=== PATIENT | male | born 1950 | race Caucasian/White ===

== ENCOUNTER 2023-05-23 12:23 | Outpatient (RCR) | payer OTHER, SELFPAY | END 2023-05-23 23:59 | disposition home or self-care (01) | LOC: ROT 12:23 | PROVIDERS: ATTENDING PHYSICIAN Family Medicine | DX: R41.3 Other amnesia (principal); R41.841 Cognitive communication deficit | CPT/HCPCS: 97129; 97130 ==

== ENCOUNTER 2023-06-23 13:46 | Outpatient (RCR) | payer OTHER, SELFPAY | END 2023-06-23 23:59 | disposition home or self-care (01) | LOC: ROT 13:46 | PROVIDERS: ATTENDING PHYSICIAN Family Medicine | DX: R41.3 Other amnesia (principal); R41.841 Cognitive communication deficit | CPT/HCPCS: 97129; 97130 ==

== ENCOUNTER 2023-07-24 16:23 | Outpatient (RCR) | payer OTHER, SELFPAY | END 2023-07-24 23:59 | disposition home or self-care (01) | LOC: ROT 16:23 | PROVIDERS: ATTENDING PHYSICIAN Family Medicine | DX: R41.3 Other amnesia (principal); Z73.6 Limitation of activities due to disability; R41.841 Cognitive communication deficit | CPT/HCPCS: 97129; 97167; 97530; 97535 ==

== ENCOUNTER 2023-08-22 07:41 | Outpatient (RCR) | payer OTHER, SELFPAY | END 2023-08-22 23:59 | disposition home or self-care (01) | LOC: ROT 07:41 | PROVIDERS: ATTENDING PHYSICIAN Family Medicine | DX: R41.3 Other amnesia (principal); Z73.6 Limitation of activities due to disability; R41.841 Cognitive communication deficit | CPT/HCPCS: 97129; 97130; 97530; 97535 ==

== ENCOUNTER → 2023-09-17 14:21 | Outpatient (REF) | payer OTHER, SELFPAY | LOC: DHCBC MAIN 14:21 | PROVIDERS: ATTENDING PHYSICIAN Nurse Practitioner; FAMILY PHYSICIAN Family Medicine | DX: I35.0 Nonrheumatic aortic (valve) stenosis (principal); I25.10 Atherosclerotic heart disease of native coronary artery without angina pectoris | CPT/HCPCS: 93306 ==

== ENCOUNTER → 2023-11-25 13:43 | Outpatient (REF) | payer OTHER, SELFPAY | LOC: RAD 13:43 | PROVIDERS: ATTENDING PHYSICIAN Internal Medicine | DX: R60.0 Localized edema (principal) | CPT/HCPCS: 93971 ==

== ENCOUNTER → 2023-11-26 09:56 | Outpatient (REF) | payer OTHER, SELFPAY | LOC: RAD 09:56 | PROVIDERS: ATTENDING PHYSICIAN Internal Medicine; FAMILY PHYSICIAN Family Medicine | DX: R60.0 Localized edema (principal); M79.89 Other specified soft tissue disorders | CPT/HCPCS: 93971 ==

== ENCOUNTER 2024-01-20 06:09 | Outpatient (RCR) | payer OTHER, SELFPAY | END 2024-01-20 23:59 | disposition home or self-care (01) | LOC: RPT 06:09 | PROVIDERS: ATTENDING PHYSICIAN Internal Medicine; FAMILY PHYSICIAN Family Medicine | DX: I89.0 Lymphedema, not elsewhere classified (principal); I87.2 Venous insufficiency (chronic) (peripheral); Z73.6 Limitation of activities due to disability | CPT/HCPCS: 97163; 97535; 97760 ==

== ENCOUNTER → 2024-02-03 14:26 | Outpatient (REF) | payer OTHER, SELFPAY | LOC: RAD 14:26 | PROVIDERS: ATTENDING PHYSICIAN Family Medicine | DX: Z00.00 Encounter for general adult medical examination without abnormal findings (principal); Z13.6 Encounter for screening for cardiovascular disorders | CPT/HCPCS: 76770 ==

== ENCOUNTER → 2024-04-07 13:19 | Outpatient (REF) | payer OTHER, SELFPAY | LOC: RAD 13:19 | PROVIDERS: ATTENDING PHYSICIAN Family Medicine | DX: M79.604 Pain in right leg (principal); M79.605 Pain in left leg | CPT/HCPCS: 93922; 93925 ==

== ENCOUNTER → 2024-08-30 14:17 | Outpatient (REF) | payer OTHER, SELFPAY | LOC: RCS 14:17 | PROVIDERS: ATTENDING PHYSICIAN Internal Medicine; FAMILY PHYSICIAN Family Medicine | DX: I35.0 Nonrheumatic aortic (valve) stenosis (principal); I25.10 Atherosclerotic heart disease of native coronary artery without angina pectoris | CPT/HCPCS: 93306 ==

== ENCOUNTER 2024-10-11 07:32 | Day surgery (SDC) | payer OTHER, SELFPAY ==
[2024-10-11] VITALS (16 sets, daily range): BP systolic 143–175; BP diastolic 85–118; BMI 33.0
[2024-10-11] MEDS: NSS 317 ML IV (09:07)
--- NOTE | 2024-10-11 11:07 | ITS.CL.CATH ---
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
Cardiac Catheterization
Procedure Report:
CARDIAC CATHETERIZATION REPORT
Date of Procedure: 10/11/2024
Referring: Jeffery Duarte M.D., Ph.D.
Indication: Moderate to severe aortic valve stenosis.
PROCEDURE:
1. Right heart catheterization.
2. Coronary angiography.
3. Bypass angiography
A total of 17 minutes of procedural/moderate sedation was utilized. An independent medical claims manager was present to assist with and help manage the patient's level of consciousness and physiologic status.
ACCESS:
1. 6 Latvian left radial artery using a modified Seldinger technique.
2. 5 Latvian left antecubital vein using a previously placed IV.
CATHETERS:
1. 5 Latvian balloon wedge.
2. 5 Latvian LAVERNE.
3. 5 Latvian JL 4.
4. 5 Latvian JR4.
5. 5 Latvian multipurpose.
HEMODYNAMIC DATA
Weight (kg): 105.2
AO (s/d/x, mmHg): 168/91/124
LV (s/x, mmHg): Not obtained.
PCWP (a/v/x, mmHg): 40/45/35
PA (s/d/x, mmHg): 64/35/44
RV (s/x, mmHg): 64/15
RA (a/v/x, mmHg): 23/22/15
SVC SvO2 (%): 71.9
IVC SvO2 (%): Not obtained.
RA SvO2 (%): Not obtained.
RV SvO2 (%): Not obtained.
PA SvO2 (%): 66.4
SaO2 (%): 96.9
Hbg (g/dL): 12.8
ZHEN
CO (L/min): 5.96
CI (L/min/m2): 2.68
Thermodilution
CO (L/min): Not performed.
CI (L/min/m2): Not performed.
TPG (mmHg): 9
PVR (Thurston Units): 1.51
SVR (dynes*seconds*cm^-5): 1463
AVO2 Diff (Volume %): 5.31
AV gradient (x, mmHg): Not obtained.
AV area (cm2): Not obtained.
MV gradient (x, mmHg): Not obtained.
MV area (cm2): Not obtained.
LEFT VENTRICULOGRAPHY: Not performed.
AORTOGRAPHY: Not performed.
CORONARY ANGIOGRAPHY
Dominance: Right.
Left Main: Normal size, bifurcating vessel. There is a 30 to 40% mid vessel tapering.
LAD: Normal size vessel giving rise to 2 significant diagonals. There is an 80% lesion in the ostium/proximal margin of the LAD. The LAD is supplied by patent HEARD graft.
Ramus: Congenitally absent.
Circumflex: Large size, nondominant vessel giving rise to 1 notable obtuse marginal. The vessel is chronically totally occluded at its origin. A patent stent is observed in the proximal margin of OM1. The entire circumflex distribution is
supplied by patent vein graft.
RCA: Normal size, dominant vessel. The vessel is chronically totally occluded at the distal aspect of its midportion, immediately proximal to the crux. The RPDA is supplied by a patent vein graft.
BYPASS GRAFT ANGIOGRAPHY
HEARD to D2: Normal size graft with end-to-side anastomosis to the large second diagonal. The graft backfills the entire LAD system with competitive flow in the proximal LAD. There is no evidence of stenosis or graft degeneration.
SVG to OM1: Large size graft with end-to-side anastomosis to the first obtuse marginal. There is no evidence of stenosis or graft degeneration.
SVG to RPDA: Normal size graft with end-to-side anastomosis to the RPDA and a relatively horizontal origin requiring a multipurpose catheter for adequate engagement. There is no evidence of stenosis or graft degeneration.
INTERVENTIONS
None.
Closure Device: Vascular band for the left radial artery, manual pressure for the left antecubital vein.
Radiation dose (mGy): 657.97
DAP (cm2.Gy): 52.3890
Fluoroscopy time (minutes): 8.0
CONCLUSIONS:
1. Right dominant circulation with a 30-40% tapering of the mid left main, and 80% lesion in the ostium/proximal margin of the LAD, a chronic total occlusion of the ostium of the left circumflex, a patent stent in the proximal margin of OM1 and a
chronic total occlusion of the distal aspect of the mid RCA, status post prior bypass (patent HEARD to LAD, patent SVG to OM1, patent SVG to RPDA).
2. Severely elevated filling pressures (PCWP = 35 mmHg at 105.2 kg).
3. Moderate, postcapillary pulmonary hypertension (mean PA = 44 mmHg, PCWP = 35 mmHg, cardiac output = 5.96 L/min, PVR = 1.51 Thurston units), WHO group 2.
4. Preserved cardiac index (2.6 L/min/m�).
5. Moderate to severe aortic valve stenosis on echocardiogram.
6. Persistent atrial fibrillation.
RECOMMENDATIONS:
1. Expectant management after cardiac catheterization via left radial and left antecubital approach.
2. Limited weight bearing on the left wrist for one week.
3. TAVR evaluation.
4. Increase furosemide to 40 mg daily, BMP in 1 week to monitor kidney function and potassium levels.
5. Maintain streamlined and simple medication regimen given some transient memory issues.
6. Resume apixaban for PAF.
Copy to: Jeffery Duarte M.D., Ph.D.
Bhavesh Kelley, DO, FACC, FACP
[2024-10-11] MEDS: LASIX 40 MG IV (11:41)
[2024-10-11] MEDS: LOPRESSOR 12.5 MG PO (13:26)
[2024-10-11] MEDS: ZESTRIL 20 MG PO (13:27)
--- NOTE | 2024-10-11 14:11 | CONSULT.STRU ---
Consultation
-
Date/Time Consultation Requested: 10/11/2024 1000
Date/Time Consultation Performed: 10/11/2024 1200
Requesting Provider: Bhavesh Kelley
Performing Provider: DAVION Spence
Reason for Consultation: Aortic stenosis/ TAVR evaluation
Patient History
Physicians
Family Physician: Genoveva Cespedes
Outpatient Manager Balance: Jeffery Duarte
Primary Manager Balance: Jeffery Duarte
History of Present Illness
74 yo male with PMH of CAD s/p SUPRIYA to OM3 12/2014, then CABG 11/[address] Banuelos, persistent A fib (was on eliquis but stopped it and restarting today), chronic HFpEF, moderate/severe , moderate/severe TR, HTN, hyperlipidemia, lymphedema,
obesity. Echo shows is progressing. AV PG/M/26 DAT 1.0, mild AI, dense MAC with mild MR, moderate to severe TR. Underwent cardiac cath today which demonstrated right dominant circulation with a 30-40% tapering of the mid left main, and 80%
lesion in the ostium/proximal margin of the LAD, a chronic total occlusion of the ostium of the left circumflex, a patent stent in the proximal margin of OM1 and a chronic total occlusion of the distal aspect of the mid RCA, status post prior bypass
(patent HEARD to LAD, patent SVG to OM1, patent SVG to RPDA). Severely elevated filling pressures (PCWP = 35 mmHg at 105.2 kg). As far as symptoms, his RAMÍREZ is worsening. He has to take frequent breaks. Experiencing more palpitations with activity and
mild increase in his LE edema. Denies dizziness, syncope, PND or orthopnea.
Reviewed the pathophysiology of aortic stenosis with the patient and his friend. Explained the treatment options of SAVR and TAVR. Explained the TAVR evaluation process including follow up BMP, CT TAVR scan, CT surgery consult and Heart Team
discussion. Provided with script for BMP next week, script and appointment for CT TAVR, Consult appointment with Dr. Banuelos and a copy of the TAVR education booklet with contact information. Allowed for and answered questions.
Past Medical History
Past Medical History: Atrial Fib, CAD, CHF, RAMÍREZ, HTN, Hypercholesterolemia, Psychiatric (depression) and Other (Alcohol dependence, MRSA nasal-colonized, bilateral LE lymphedema, Venous insufficiency, Obesity, DJD, OA, short term memory loss, h/o
TIA, BPH)
Past Surgical History
Past Surgical History: CABG (x3- HEARD to LAD, RSV to OM, RSV to PDA (MPT 12/01/2020)), Tonsilectomy and Other (I&D of cyst on back, SUPRIYA 2014)
Dental History
Dr. [facility] Pat[facility]: last visit May
Family History
Mother: at Age (70s) and Cause of (MA)
Father: at Age (unknown)
Social History
Alcohol: Chronic Alcoholic
Drug: Marijuana (smokes daily)
Tobacco: Former Smoker (quit 40 years ago)
Personal: Single
Living: Alone
Employment: Retired ([employer])
Allergies
Allergy/AdvReac Type Severity Reaction Status Date / Time
No Known Allergies Allergy Verified 10/11/24 08:04
Home Medications
�Medication �Instructions �Recorded �Confirmed �Type
ezetimibe 10 mg tablet 10 mg PO DAILY High cholesterol 05/09/21 10/11/24 History
apixaban 5 mg tablet (Eliquis) 5 mg PO BID #60 tabs 10/11/24 Rx
carvedilol 3.125 mg tablet 3.125 mg PO BID 10/11/24 10/11/24 History
furosemide 20 mg tablet (Lasix) 40 mg (2 x 20 mg) PO DAILY #0 tabs 10/11/24 10/11/24 Rx
lisinopril 20 mg tablet 20 mg PO DAILY 10/11/24 10/11/24 History
tamsulosin 0.4 mg capsule 0.4 mg PO DAILY 10/11/24 10/11/24 History
STS%
STS %: 3.4%
Review of Systems
-
History Source: Patient
General: Reports Fatigue
HEENT: Reports No Symptoms
Respiratory: Reports RAMÍREZ, Cough (nonproductive) and Asthma (as a child)
Cardiac: Reports Edema (chronic bilateral LE); Denies Chest Pain or Palpitations
Abdomen/GI: Reports No Symptoms; Denies Reflux, Indigestion, Nausea or Vomiting
: Reports Frequency
Musculoskeletal: Reports Edema (bilateral LE)
Skin: Reports No Symptoms
Neurological: Reports No Symptoms; Denies CVA, TIA, Headaches, Syncope or Dizzy
Vascular: Reports No Symptoms
Physical Exam
Vital Signs
Temp 97.8 F 10/11/24 08:18
Temp route: Temporal 10/11/24 08:18
Pulse 69 10/11/24 13:27
Resp Rate 16 10/11/24 08:18
Blood pressure 152/90 10/11/24 13:27
Blood pressure extremity used: Right upper arm 10/11/24 08:18
Position: Sitting 10/11/24 08:18
MAP (cuff-Samir Monitor) 123 10/11/24 12:51
SaO2 96 10/11/24 12:51
Oxygen Mode of Delivery Room air 10/11/24 12:55
Can the patient verbally communicate their pain? Yes 10/11/24 12:55
Actual Weight 105.6 kg 10/11/24 08:03
Body Mass Index (BMI) 33.0 10/11/24 08:03
Labs
10/06/2024:
H/H: 12.1/ 38.0
WBC: 6.2
Platelets: 870035
BUN/Creat: 21/0.89
GFR: 89
Diagnostic Studies
Cardiac Catheterization 10/11/2024:
HEMODYNAMIC DATA
Weight (kg):105.2
AO (s/d/x, mmHg): 168/91/124
LV (s/x, mmHg): Not obtained.
PCWP (a/v/x, mmHg): 40/45/35
PA (s/d/x, mmHg): 64/35/44
RV (s/x, mmHg): 64/15
RA (a/v/x, mmHg): 23/22/15
SVC SvO2 (%):71.9
IVC SvO2 (%):Not obtained.
RA SvO2 (%):Not obtained.
RV SvO2 (%):Not obtained.
PA SvO2 (%):66.4
SaO2 (%):96.9
Hbg (g/dL):12.8
ZHEN
CO (L/min): 5.96
CI (L/min/m2): 2.68
Thermodilution
CO (L/min):Not performed.
CI (L/min/m2):Not performed.
TPG (mmHg): 9
PVR (Thurston Units): 1.51
SVR (dynes*seconds*cm^-5): 1463
AVO2 Diff (Volume %): 5.31
AV gradient (x, mmHg):Not obtained.
AV area (cm2):Not obtained.
MV gradient (x, mmHg):Not obtained.
MV area (cm2):Not obtained.
LEFT VENTRICULOGRAPHY: Not performed.
AORTOGRAPHY:Not performed.
CORONARY ANGIOGRAPHY
Dominance: Right.
Left Main: Normal size, bifurcating vessel. There is a 30 to 40% mid vessel tapering.
LAD: Normal size vessel giving rise to 2 significant diagonals. There is an 80% lesion in the ostium/proximal margin of the LAD. The LAD is supplied by patent HEARD graft.
Ramus:Congenitally absent.
Circumflex: Large size, nondominant vessel giving rise to 1 notable obtuse marginal. The vessel is chronically totally occluded at its origin. A patent stent is observed in the proximal margin of OM1. The entire circumflex distribution is
supplied by patent vein graft.
RCA: Normal size, dominant vessel. The vessel is chronically totally occluded at the distal aspect of its midportion, immediately proximal to the crux. The RPDA is supplied by a patent vein graft.
BYPASS GRAFT ANGIOGRAPHY
HEARD to D2:Normal size graft with end-to-side anastomosis to the large second diagonal. The graft backfills the entire LAD system with competitive flow in the proximal LAD. There is no evidence of stenosis or graft degeneration.
SVG to OM1:Large size graft with end-to-side anastomosis to the first obtuse marginal. There is no evidence of stenosis or graft degeneration.
SVG to RPDA:Normal size graft with end-to-side anastomosis to the RPDA and a relatively horizontal origin requiring a multipurpose catheter for adequate engagement. There is no evidence of stenosis or graft degeneration.
INTERVENTIONS
None.
Closure Device: Vascular band for the left radial artery, manual pressure for the left antecubital vein.
Radiation dose (mGy): 657.97
DAP (cm2.Gy): 52.3890
Fluoroscopy time (minutes):8.0
CONCLUSIONS:
1. Right dominant circulation with a 30-40% tapering of the mid left main, and 80% lesion in the ostium/proximal margin of the LAD, a chronic total occlusion of the ostium of the left circumflex, a patent stent in the proximal margin of OM1 and a
chronic total occlusion of the distal aspect of the mid RCA, status post prior bypass (patent HEARD to LAD, patent SVG to OM1, patent SVG to RPDA).
2. Severely elevated filling pressures (PCWP = 35 mmHg at 105.2 kg).
3. Moderate, postcapillary pulmonary hypertension (mean PA = 44 mmHg, PCWP = 35 mmHg, cardiac output = 5.96 L/min, PVR = 1.51 Thurston units), WHO group 2.
4. Preserved cardiac index (2.6 L/min/m�).
5. Moderate to severe aortic valve stenosis on echocardiogram.
6. Persistent atrial fibrillation.
RECOMMENDATIONS:
1. Expectant management after cardiac catheterization via left radial and left antecubital approach.
2. Limited weight bearing on the left wrist for one week.
3. TAVR evaluation.
4. Increase furosemide to 40 mg daily, BMP in 1 week to monitor kidney function and potassium levels.
5. Maintain streamlined and simple medication regimen given some transient memory issues.
6. Resume apixaban for PAF
Echocardiogram 08/30/2024:
CONCLUSIONS
Normal left ventricular size and systolic function without regional wall motion
abnormality. LVEF 58%.
Asymmetric septal hypertrophy (IVS 1.4 cm, LVPW 0.9 cm).
Dilated right ventricle with normal systolic function.
Dense mitral annular calcification with mild mitral regurgitation.
Moderate to severe aortic stenosis (peak/mean 58/36 mmHg, DAT 1.0 cm2, DVI
0.22).
Moderate to severe tricuspid regurgitation. PASP 40-45 mmHg.
Compared to prior echocardiogram in August 2023, aortic valve gradients are
stable but calculated DAT is now close to the severe range as is the
dimensionless valve index. Tricuspid regurgitation has progressed, previously
mild to moderate.
Indications:
CAD; Nonrheumatic aortic valve stenosis
Rhythm: Atrial fibrillation
Portable Study: No
Technical Quality: Good
Contrast: None
BP: 124 / 72
PROCEDURE
FINDINGS
Left Ventricle
Normal left ventricular size and systolic function. No regional wall motion
abnormalities are seen. LV ejection fraction is 58% by Lux's method of
discs. Asymmetric septal hypertrophy (IVS 1.4 cm, LVPW 0.9 cm). Diastolic
function indeterminate due to atrial fibrillation.
Right Ventricle
Normal right ventricular systolic function. Enlarged right ventricular size.
Left Atrium
Severely dilated left atrium. Indexed LA volume is severely abnormal (> 48
mL/m2).
Right Atrium
Severely dilated right atrium.
Mitral Valve
Mitral valve opens normally. Thickened mitral valve leaflets. Dense mitral
annular calcification. Mild mitral regurgitation.
Aortic Valve
Thickened trileaflet aortic valve with restricted leaflet motion. Severe aortic
stenosis. Peak/mean gradients across the aortic valve are 58/36 mmHg. Using an
LVOT diameter of 2.4 cm, the aortic valve by the Continuity equation is
calculated at 1.0 cm. DVI 0.22. Mild aortic regurgitation.
Tricuspid Valve
Tricuspid valve opens normally. Moderate to severe tricuspid regurgitation.
Estimated pulmonary artery pressure of 40-45 mmHg assuming a right atrial
pressure of 8 mmHg.
Pulmonic Valve
Pulmonic valve opens normally. Mild pulmonic regurgitation.
Pericardium\\Pleura
No pericardial effusion.
Aorta
The aortic root is of normal size. Normal ascending aorta.
Other Finding
The IVC is dilated, it does collapse. Interatrial septum is intact with no
evidence of shunting by color flow Doppler. No intracardiac mass or thrombus
formation seen.
Exam
General: Well Developed, Well Nourished and No Apparent Distress
HEENT: Normocephalic, PERRLA and EOMI
Neck: Trachea Midline
Respiratory: Clear; Negative Wheezes, Crackles or Rhonchi
Cardiac: Irregular Rhythm and Murmur (Grade I/ CAMERON)
GI: Soft, Non Tender, Non Distended and Normal Bowel Sounds
Rectal: Deferred by Provider
Skin: Warm and Dry
Neuro: AO x 3
Extremities: Lower Level Edema (bilateral Right > Left) and Pulses (+2 DP pulses bilaterally)
Psych: Calm
Assessment / Plan
-
Procedure Type:�Isolated AVR
Perioperative Outcome Estimate %
Operative Mortality 3.4%
Morbidity & Mortality 12.1%
Stroke 3.3%
Renal Failure 3.33%
Reoperation 3.4%
Prolonged Ventilation 8.16%
Deep Sternal Wound Infection 0.292%
Long Hospital Stay (>14 days) 8.79%
Short Hospital Stay (<6 days)* 24.1%
Severe Aortic stenosis:
����������� Continue evaluation for aortic stenosis as outpatient
����������� BMP 10/19/2024
����������� CT TAVR scan at
����������� CT surgery consult with Dr. Banuelos� 11/02/2024
����������� Dental Clearance � Dr. Pierre in [place]
����������� Heart team discussion at [facility]
Persistant Atrial fibrillation:
Eliquis restarted today, will need to hold prior to TAVR
Rate control
Data Reviewed
-
EKG: Report Reviewed by me
Diet Aid: Report Reviewed by me, Discussed with Physician and Discussed with Patient
Echo: Report Reviewed by me and Discussed with Patient
Labs: Labs Reviewed by me
Old Records: Reviewed (cardiology notes)
Total Time Spent with Patient (in minutes): 30
== END 2024-10-11 14:15 | disposition home or self-care (01) ==
LOC: CATH 07:32
PROVIDERS: ATTENDING PHYSICIAN Internal Medicine Cardiovascular Disease; FAMILY PHYSICIAN Family Medicine; OTHER PHYSICIAN Internal Medicine
DX: I25.10 Atherosclerotic heart disease of native coronary artery without angina pectoris (principal); I25.82 Chronic total occlusion of coronary artery; I48.19 Other persistent atrial fibrillation; I11.0 Hypertensive heart disease with heart failure; I50.32 Chronic diastolic (congestive) heart failure; I08.3 Combined rheumatic disorders of mitral, aortic and tricuspid valves; I27.29 Other secondary pulmonary hypertension; E78.00 Pure hypercholesterolemia, unspecified; R06.09 Other forms of dyspnea; I87.2 Venous insufficiency (chronic) (peripheral); I89.0 Lymphedema, not elsewhere classified; N40.0 Benign prostatic hyperplasia without lower urinary tract symptoms; M19.90 Unspecified osteoarthritis, unspecified site; E66.01 Morbid (severe) obesity due to excess calories; Z68.33 Body mass index [BMI] 33.0-33.9, adult; F12.90 Cannabis use, unspecified, uncomplicated; Z95.1 Presence of aortocoronary bypass graft; Z95.5 Presence of coronary angioplasty implant and graft; Z87.891 Personal history of nicotine dependence; Z86.73 Personal history of transient ischemic attack (TIA), and cerebral infarction without residual deficits; Z79.01 Long term (current) use of anticoagulants
CPT/HCPCS: 99152; C1894; 93457; Q9967

== ENCOUNTER → 2024-10-29 08:55 | Outpatient (REF) | payer OTHER, SELFPAY | LOC: RAD 08:55 | PROVIDERS: ATTENDING PHYSICIAN Nurse Practitioner Adult Health; FAMILY PHYSICIAN Family Medicine | DX: I35.0 Nonrheumatic aortic (valve) stenosis (principal) | CPT/HCPCS: 74174; 75572; Q9967 ==

== ENCOUNTER 2024-12-16 05:47 | Inpatient (IN) | payer OTHER, SELFPAY ==
--- NOTE | 2024-12-09 09:37 | HPS.HSE ---
Family Physician
-
Family Physician: Genoveva Cespedes MD
Chief Complaint
-
RAMÍREZ
PreTAVR evaluation
History of Present Illness
Mr. Lechuga is a 74 yo male with PMH of CAD s/p SUPRIYA to OM3 12/2014, then CABG 11/[address] Banuelos, persistent A fib (was on eliquis but stopped it and restarting today), chronic HFpEF, moderate/severe , moderate/severe TR, HTN, hyperlipidemia,
lymphedema, obesity. Echo shows is progressing. AV PG/M/26 DAT 1.0, mild AI, dense MAC with mild MR, moderate to severe TR. Underwent cardiac cath today which demonstrated right dominant circulation with a 30-40% tapering of the mid left
main, and 80% lesion in the ostium/proximal margin of the LAD, a chronic total occlusion of the ostium of the left circumflex, a patent stent in the proximal margin of OM1 and a chronic total occlusion of the distal aspect of the mid RCA, status
post prior bypass (patent HEARD to LAD, patent SVG to OM1, patent SVG to RPDA). Severely elevated filling pressures (PCWP = 35 mmHg at 105.2 kg). As far as symptoms, his RAMÍREZ is worsening. He has to take frequent breaks. Experiencing more palpitations
with activity and mild increase in his LE edema. Denies dizziness, syncope, PND or orthopnea. Reviewed patient with the heart team on 11/05/2024 and recommended a 29mm S3 via right transfemoral access.
Assessed patient in preadmission testing and confirmed medication list. Last dose Eliquis (12/13), initiate aspirin 324 ng (12/14), aspirin 81 mg (12/15 & 12/16). He will arrive to the [facility] at 0530. Reviewed the risks of the procedure as
discussed in consult with Dr. Banuelos including stroke, PPM, and vascular injury. Allowed for and answered questions to the best of my abilitly.
Medical History
Past Medical History
Past Medical History: Reports Arrhythmia (afib), CAD (NSTEMI), COPD, HTN, RI and Valvular Disease (aortic stenosis)
Additional Past Medical History:
hyperlipidemia, alcohol dependence, DJD, OA, BPH, TIA, venous insufficiency
Past Surgical History: Reports Appendectomy, Cardiac (CABG x3, SUPRIYA to MO3) and Tonsilectomy
Social History
Tobacco: Former Smoker
Alcohol: Daily
Drug: Marijuana
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
Family History
Family History: CAD, Cancer and Diabetes
Allergies / Home Medications
Allergies reflects when Allergies were last updated in [employer].
NKDA
Home Medications with original date entered in [employer]
Carvedilol 3.125 MG Tablet 1 tablet with food Orally Twice a day
CoQ-10
Eliquis(Apixaban) 5 MG Tablet 1 tablet Orally Twice a day
GlucosamineLasix(Furosemide) 40 MG Tablet 1 tablet Orally Once a day
Lisinopril 20 MG Tablet 1 tablet at 9 AM Orally Once a day
Magnesium , Notes to Pharmacist: 600mg
Tamsulosin HCl 0.4 mg Capsule TAKE ONE CAPSULE BY MOUTH DAILY AT 9PM
Vitamin B12
Vitamin C , Notes to Pharmacist: liposomal 2000Vitamin D3 25 MCG (1000 UT) Capsule 2 capsules Orally BID , Notes to Pharmacist: 2 tabs in am, 1 tab at hs
Zetia 10 MG Tablet 1 tablet Orally Once a day
Allergy/Medication List:
NKDA
Review of Systems
-
A 12 point ROS was completed and negative except as noted: Yes
Constitutional: Reports Fatigue
Respiratory: Reports Other (RAMÍREZ)
Physical Exam
Physical Exam
General: Well Developed, Well Nourished, No Apparent Distress and Comfortable
HEENT: NormoCephalic
Respiratory: Clear
Cardiac: Irregular Rhythm and Murmur (III/ CAMERON)
Breast: Deferred by me
GI: Soft and Non Tender
Rectal: Deferred by Provider
Genito-urinary: Deferred by me
Musculoskeletal: Edema, Right Upper Extremity (trace) and Edema, Left Lower Extremity (trace)
Skin: Warm and Dry
Neuro: Awake, Alert, Oriented and AO x 3
Psych: Calm
Data Reviewed
-
CT Scan: Report Reviewed by me and Discussed with Physician (reviewed TAVR CT scan with the heart team)
Medical Tests (Nuc Med, Echo, EKG etc): Report Reviewed by me and Discussed with Physician (Reviewed cardiac catheterization and echocardiogram with the heart team)
Lab Data: Labs Reviewed by me
Old Records: Reviewed
Impression/Plan
-
IMPRESSION/PLAN:
Aortic stenosis-TF TAVR planned with Shamika Kelley and Priscilla utilizing a 29 mm S3
Hold Eliquis x 48 hours (last dose (12/13)) Initiate aspirin while Eliquis held. D/c aspirin when Eliquis resumed
POD#1/#30 Echocardiogram
cardiac rehab consult.
Labs
-
Labs:
WBC 6.5 10^3/uL (4.8-10.8) 12/09/24 11:58
RBC 4.40 10^6/uL (4.70-6.10) L 12/09/24 11:58
Hgb 12.6 g/dL (13.0-18.0) L 12/09/24 11:58
Hct 38.8 % (39.0-52.0) L 12/09/24 11:58
Plt Count 200 10^3/uL (130-400) 12/09/24 11:58
Sodium 138 mmol/L (135-145) 12/09/24 11:58
Potassium 4.2 mmol/L (3.5-5.1) 12/09/24 11:58
Chloride 109 mmol/L (98-107) H 12/09/24 11:58
Carbon Dioxide 23 mmol/L (22-30) 12/09/24 11:58
BUN 22 mg/dl (9-20) H 12/09/24 11:58
Creatinine 0.8 mg/dL (0.7-1.3) 12/09/24 11:58
eGFR > 60.00 12/09/24 11:58
Glucose 106 mg/dl (70-99) H 12/09/24 11:58
Calcium 9.1 mg/dl (8.4-10.2) 12/09/24 11:58
Tnu-X-Qikjunktuii Pept 5210 pg/ml 12/09/24 11:58
Albumin 3.8 g/dl (3.5-5.0) 12/09/24 11:58
[2024-12-09 13:08] LABS: Urine Character Clear (Clear)
[2024-12-09 13:09] LABS: INR 1.19; PT 15.6 Sec (11.4-14.6)
[2024-12-09 13:10] LABS: Hematocrit 38.8 % (39.0-52.0); Hemoglobin 12.6 g/dL (13.0-18.0); Mean Corp Hgb Conc. 32.5 g/dL (33.0-37.0); Mean Corpuscular Volume 88.2 fL (80.0-94.0); Nucleated Red Blood Cells % 0 % (-); Platelet Count 200 10^3/uL (130-400); Red Cell Dist. Width 15.3 % (11.5-14.5)
[2024-12-09 13:36] VITALS: BMI 29.4
--- NOTE | 2024-12-09 13:42 | CM ---
Chart reviewed. Met with the patient and his friend in PAT. Reviewed preoperative and postoperative instructions and restrictions, along with showering guidelines. Gave patient 2 soaps. Patient is independent of ADLS, lives in a apartment in
[employer] [place], elevator access, 0 FLOR, 0 DME. Patient's friend, Ilene is his caregiver and assists patient with his care. Patient lives outside the driving radius of [facility] RN. Plan is for the patient to return home. CM to follow
[2024-12-09 13:45] LABS: Urine Squamous Cell 0-2 /LPF (Few)
[2024-12-09 13:46] LABS: Urine Red Blood Cell 0-2 /HPF (0-2); Urine White Cell 0-2 /HPF (0-5)
[2024-12-09 14:07] LABS: ALT (SGPT) 32 U/L (0-50); AST (SGOT) 35 U/L (17-59); Albumin 3.8 g/dl (3.5-5.0); Alkaline Phosphatase 68 U/L (38-126); Blood Urea Nitrogen 22 mg/dl (9-20); Calcium 9.1 mg/dl (8.4-10.2); Carbon Dioxide 23 mmol/L (22-30); Chloride 109 mmol/L (98-107); Estimated Creatinine Clearance 86 ml/min; Glucose 106 mg/dl (70-99); Potassium 4.2 mmol/L (3.5-5.1); Sodium 138 mmol/L (135-145); Total Protein 6.3 g/dl (6.3-8.2); eGFR > 60.00
[2024-12-09 14:08] LABS: Glycohemoglobin (HgbA1c) 6.0 % (4.0-5.6)
[2024-12-16] VITALS (27 sets, daily range): BP systolic 120–192; BP diastolic 69–99; BMI 29.4; BMI 28.6
--- NOTE | 2024-12-16 06:34 | PTCARENOTE ---
Rec'd pt as same day admission for TAVR at 0530. Pt AAO*3, VSS, and SR on TELE monitor. Pt denies any pain or discomfort, surgery prep complete, chest/ groins clipped, and CHG bath complete. Family and patient updated on plan of care, now resting
with call wade in reach. See MAR and flowchart for full pt care and assessment. Pt awaiting cath team.
--- NOTE | 2024-12-16 07:05 | PTCARENOTE ---
Pt friend/contact lens blocker and cutter at bedside after pt left for procedure with cath team. Friend states that pt is increasingly forgetful and raises concern for self care after procedure. Friend requested case management/social work consult for help with self
care/homemaker services. On admission pt was AAO*3 however hesitant or unsure to answer all questions. Friends acts as primary health history information source.
[2024-12-16 08:28] LABS: ACT-LR - POC 273 Seconds (116-155)
--- NOTE | 2024-12-16 08:45 | W.CVOR.SURPR ---
CVOR Surgeon Immed Pre Op
-
I have examined this patient prior to performance of the scheduled procedure.
The patient's condition is unchanged from the time of the dictated/written History and
Physical and the patient is able to undergo the scheduled procedure.
--- NOTE | 2024-12-16 08:45 | W.IMMPOSTOP ---
Surgical Immed Post Op Note
-
[id number]
STRUCTURAL HEART PROCEDURE NOTE: TAVR
Preoperative Dx:
[id number] symptomatic progressive aortic stenosis (P/M: 58/36, DI 0.22)
Mild aortic regurgitation
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
Moderate TR
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
AF on Eliquis
HTN/HLD
Former smoker/active marajuana use
Alcohol dependence
Short-term memory loss x 2 years
OA/DJD
COPD
TIA
Postoperative Dx:
Same
Procedures:
1) R COUPON AND BOND COLLECTION CLERK access w/ tactile, U/S, and fluoroscopic guidance, micropuncture technique, limited angiography, 8Fr dilator placement
2) Perclose placement x 3 into R COUPON AND BOND COLLECTION CLERK (1 (? 2) perclose failure(s)); 8Fr sheath placement
3) L COUPON AND BOND COLLECTION CLERK access w/ tactile, U/S, and fluoroscopic guidance, micropuncture technique, limited angiography, long 6Fr sheath placement
4) L CFV access w/ U/S and fluoroscopic guidance, micropuncture technique, long 6Fr sheath placement
5) Placement of temporary RV pacing wire w/ threshold testing
6) Placement of pigtail catheter in RCC w/ limited aortography & confirmation of co-planar valve deployment angles
7) Placement of Yang E-sheath via R COUPON AND BOND COLLECTION CLERK (systemic heparinization)
8) Wire purchase across stenotic AV (AL-1, soft-tip straight, LVEDP assessment (not significantly elevated; 16mmHg), extra-stiff)
9) R TF TAVR w/ placement of 29mm NAY 3
10) Completion aortography
11) Completion TTE assessment (trace PVL, mean gradient 3mmHg)
12) Removal of hgput-fyyvzhdl-pjwdms & Yang E-sheath w/ R COUPON AND BOND COLLECTION CLERK mgmt w/ perclose sutures x 1/2
13) Completion R ileofemoral angiography, placement of 6Fr angioseal in R COUPON AND BOND COLLECTION CLERK; manual pressure
14) Removal of temporary pacing wire
15) Removal of L COUPON AND BOND COLLECTION CLERK 6Fr sheath w/ mgmt w/ 6Fr angioseal and manual pressure (protamine)
16) Removal of L CFV 6Fr sheath w/ mgmt w/ manual pressure
Conservation Scientist:
Dr. Bhavesh Kelley
Cardiac Surgeon:
Dr. Garrick Banuelos
Anesthesia:
MAC & local to B/L groins
Complications:
None, new BBB w/o pauses/bradycardia/pacing requirements
Implants:
Yang [employer]; SAPIEN3, 29mm, SN: [id number]; Model [id number]
Perclose x 2 to R COUPON AND BOND COLLECTION CLERK
6Fr angioseal x 1 to R COUPON AND BOND COLLECTION CLERK
6Fr angioseal x 1 to L COUPON AND BOND COLLECTION CLERK
Cath Data:
Start: 0750hrs, Deploy: 0819hrs, End: 0838hrs
FT: 7.9min, mGy: 253, DAP: 23.5, Contrast: 75
Post-TTE: mean gradient 3mmHg, trace PVL
Condition:
Stable/guarded to recovery
--- NOTE | 2024-12-16 08:47 | ITS.CL.TAVR ---
[employer] - TAVR Report
TAVR PRocedure
Procedure Report:
TRANSCATHETER AORTIC VALVE REPLACEMENT REPORT
Date: 12/16/2024
Referring physician: Jeffery Duarte M.D., Ph.D.
Preop diagnosis: Severe aortic valve stenosis.
Postop diagnosis: Severe aortic valve stenosis
Procedure: Transcatheter aortic valve replacement (TAVR) using a #29 Yang ZAHIRA S3 Ultra THV.
Operators: Bhavesh Kelley DO, Garrick Banuelos M.D.
Findings: Severely calcified and stenotic aortic valve.
Anesthesia: Conscious sedation was provided by the anesthesia staff.
Estimated blood loss: Negligible.
Complications: None.
Condition: Stable
Procedure:
The patient was brought to the cardiac assistant laboratory director after consent and was prepped and draped in standard sterile fashion. Conscious sedation was provided by the anesthesia staff. After a 'Time Out,' bilateral common femoral arteries and the left
common vein were access using a modified Seldinger technique with a micropuncture kit under ultrasound guidance. A 6 Swedish sheath was placed in the left femoral vein. Angiography performed through the micropuncture sheath confirmed satisfactory
arterial placement in the left common femoral artery. The micropuncture sheath was replaced with a 6Fr sheath in the left TABLET MAKING MACHINE OPERATOR. Angiography through the micropuncture kit confirmed satisfactory arterial placement in the right common femoral artery.
The right TABLET MAKING MACHINE OPERATOR was dilated with an 8FR dilator and preclosed with two Perc-Close devices. An 8Fr sheath was placed in the RCFA. A temporary pacing wire was advanced through the left femoral vein and into the right ventricle. The pacemaker
demonstrated good capture and was set to back up. A 5Fr pigtail catheter was advanced through the left femoral sheath and seated in the right coronary cusp. Angiography confirmed co-planar angles.
An AL-1 catheter was advanced through the 8Fr sheath, the J wire was exchanged for an Amplatz Extra-Stiff wire and the catheter and the 8 Fr sheath was removed. The 16 Fr Yang E-Sheath was inserted over the wire and into the descending aorta.
Heparin 7500 units was given. The ZAHIRA S3 was prepared on the back table. Orientation was confirmed by both physicians. The AL-1 catheter was re-advanced through the E-sheath to the level of the ascending aorta. The Extra-Stiff wire was
removed and a soft tip straight wire was advanced through the AL-1. The straight tip wire was used to cross the aortic valve and the catheter was advanced into the left ventricle. The straight wire was removed. Left ventricular pressure was
measured. An Amplatz Extra-Stiff wire with curved proximal end was advanced through the catheter and into the left ventricular apex. The catheter was removed. ACT was checked and confirmed to be > 250 seconds.
The valve was advanced over the Extrastiff wire and into the descending aorta. The balloon was pulled back and the valve was mounted on the balloon. The valve was advanced through the aortic arch and into the aortic valve annulus. The pusher
device was withdrawn to allow for balloon expansion. Low volume aortography confirmed good position of the valve. The valve was deployed during rapid ventricular pacing. Echocardiography and aortography confirmed a good result with trace aortic
valve insufficiency and a 2 mmHg mean gradient. The valve deployment system was removed. The Yang E-Sheath was then removed and hemostasis obtained with the two Perc-Close sutures and an additional 6 Swedish Angio-Seal after questionable success
of the first Perclose device. Final angiography demonstrated no evidence of ileofemoral dissection/perforation and good runoff below the common femoral artery. The pacemaker and the pigtail catheter were removed. The left femoral artery sheath was
removed using a 6 Swedish Angio-Seal. The left femoral venous sheath was removed and manual pressure was applied with excellent hemostasis. Protamine 30 mg was administered.
Radiation
Dose (mGy): 253
DAP (cm2.Gy): 23.5
Fluoroscopy time (minutes): 7.9
TAVR Echo Gradient (mmHg): 2
LV (s/x, mmHg): 152/16
TAVR Cath Gradient (mmHg): Not obtained.
Conclusions:
1. Successful placement of #29 Zahira S3 Ultra aortic valve via right transfemoral approach with no acute complications.
2. New left bundle branch block.
Bhavesh Kelley, DO, FACC, FACP
Copy to: Garrick Banuelos M.D., Jeffery Duarte M.D., Ph.D., Genoveva Cespedes M.D.
--- NOTE | 2024-12-16 08:53 | CM ---
Addendum entered by Gisel Hines 12/16/24 15:10:
[facility] also can not accept Referral because they are not contracted with his insurance.
Addendum entered by Gisel Hines 12/16/24 14:10:
Referral made to [facility] to see if they can accept. [facility] care munoz not accept his insurance in [place]. Telephone call to [facility] to make the referral. Sent the referral. Awaiting to see if [facility] can
accept.
Original Note:
Reviewed chart. Mr. Lechuga is in the operating room today. Prior to admission he resides alone in an apartment with elevator access. He does not have any DME in the home.He has a prescription plan and uses [facility]. Will need to see his
current functional level to see if he will have any skilled care needs. He has a friend, Ilene who assists in his care. Medical work-up in progress. The discharge plan is to return home with friend support and [facility] if indicated when
medically stable.
[2024-12-16 09:46] LABS: ACT-LR - POC 322 Seconds (116-155)
--- NOTE | 2024-12-16 10:30 | PTCARENOTE ---
Patient received from supervisor dental laboratory to IVU. He is alert, easily arousable, confused to month, able to tell me his name, and situation. POA at bedside this is his baseline. A-fib HR 40-50's, new BBB, prolonged QT. POX 98% room air. B/L femoral sites
CDI, +1 DP. Voided yellow urine in the urinal, lights dimmed, call wade in reach
--- NOTE | 2024-12-16 13:00 | PTCARENOTE ---
Patient assisted to the bathroom to void. Femoral sites intact and soft. A-fib HR 67 in the chair. Diet advanced, call wade in reach
[2024-12-16] MEDS: ANCEF 5 IV (14:28)
[2024-12-16 14:53] LABS: Hepatitis C Antibody Negative (Negative)
--- NOTE | 2024-12-16 18:32 | W.PN.UPDATE ---
Update Note
Progress Note Update
Called to see patient who reportedly slid from recliner to floor. Skin tear on right elbow. Did not hit head. VSS. Groin sites intact w/o bleeding. Assisted back to bed by RN and instructed to call for assistance.
--- NOTE | 2024-12-16 18:34 | PTCARENOTE ---
Addendum entered by Nura Angelo RN 12/16/24 19:33:
Patient witnessed sliding from the chair to the floor after attempting to sit on the recliner part of the chair. He did not hit his head and sat on the floor. Right arm abrasion, right elbow dressing applied. b/l femoral sites CDI. Annamaria
Sydni notified and evaluated. The supervisor garage notified, event report completed, patient denies pain, assisted to bed and bed alarm placed on the bed for safety
Addendum entered by Nura Angelo RN 12/16/24 19:28:
Patient with a witnessed sliding from the chair to the floor after attempting to sit on the recliner part of the chair. He did not hit his head and sat on the floor. Right arm abrasion, right elbow dressing applied. b/l femoral sites CDI. Annamaria
Sydni notified and evaluated. The supervisor garage notified, event report completed, patient denies pain, assisted to bed and bed alarm placed on the bed for safety
Original Note:
Patient with a witnessed fall from the doorway. Sat down on the recliner and it went and he sat down on the floor. Did not hit his head and right arm abrasion, right elbow dressing applied. Annamaria Troy notified and evaluated
--- NOTE | 2024-12-16 18:38 | PTCARENOTE ---
Assisted to bed, denies pain. Bed alarm placed
[2024-12-16] MEDS: COREG 3.125 MG PO (20:28)
--- NOTE | 2024-12-16 22:20 | PTCARENOTE ---
Pt aa0x3 with some forgetfulness and confusion at times, s/p TAVR. b/l groin sites CDI, no swelling or bruising noted. Denies pain or discomfort, ambulates in the room with stand by assist. Remains Afib w/ BBB on the tele monitor, HR 80-90's. Pox
96% RA, denies SOB. Call wade within reach, POC ongoing.
[2024-12-17] VITALS (19 sets, daily range): BP systolic 95–153; BP diastolic 51–84; PULSE 71–95; O2SAT 91–98; BMI 28.4
[2024-12-17 04:33] LABS: Hematocrit 38.4 % (39.0-52.0); Hemoglobin 12.7 g/dL (13.0-18.0); Mean Corp Hgb Conc. 33.1 g/dL (33.0-37.0); Mean Corpuscular Volume 87.3 fL (80.0-94.0); Platelet Count 165 10^3/uL (130-400); Red Cell Dist. Width 15.3 % (11.5-14.5)
[2024-12-17 04:47] LABS: Blood Urea Nitrogen 19 mg/dl (9-20); Calcium 8.8 mg/dl (8.4-10.2); Carbon Dioxide 26 mmol/L (22-30); Chloride 105 mmol/L (98-107); Estimated Creatinine Clearance 96 ml/min; Glucose 104 mg/dl (70-99); Potassium 3.9 mmol/L (3.5-5.1); Sodium 136 mmol/L (135-145); eGFR > 60.00
--- NOTE | 2024-12-17 07:24 | W.PN.CD ---
Today's Communication / Plan
-
Conservative management of skin tear.
Post TAVR echocardiogram pending.
Consider outpatient SGLT2i.
Discharge pending echo.
Impression / Plan
-
Impression/Plan: 74 y/o male with HTN, HLD, HFpEF, PAF, CAD s/p CABG and severe admitted for elective TAVR.
#Severe aortic valve stenosis
-Chronic, progressive.
-S/P #29 Yang ZAHIRA Resilia TAVR via right transfemoral approach on 12/16/2024.
-Transient LBBB, resolved this morning.
-Bilateral femoral access site is C/D/I.
-Post procedure echo pending.
-Anti-thrombotic therapy with apixaban.
#Fall
-Acute.
-Patient slid to the floor per nursing notes.
-Skin tear on right elbow. No significant trauma.
-Conservative follow up.
#CAD
-Chronic, stable.
-S/P prior CABG (HEARD to D1 which backfeeds LAD, SVG to OM, SVG to RPDA).
-OMT/GDMT.
#Persistent atrial fibrillation
-Chronic, stable.
-Currently in AF.
-Rate/rhythm control with carvedilol.
-CHADS2-Vasc = 5 (CHF, HTN, Age x2, vascular disease).
-Therapeutic anticoagulation with apixaban.
#HTN
-Chronic, stable.
-Resume home anti-hypertensives.
#HFpEF
-Chronic, stable.
-LVEDP 15 mmHg at TAVR.
-Likely driven by .
-GDMT
-Diuretic: Furosemide 40 mg PO daily.
-Beta hoang: Carvedilol 3.125 mg BID.
-ACEI/ARB/ARNi: Lisinpril 20 mg daily.
-MRA: None.
-SGLT2i: Consider outpatient SGLT2i.
-ICD: Not currently indicated.
#Dispo:
-IVU status.
-Full code.
-Discharge pending echo results.
Subjective/Interval History:
TAVR yesterday.
Transient LBBB, resolved.
He slid to the floor yesterday with some
DATA:
Procedural TTE, 12/16/2024:
CONCLUSIONS
Normal left ventricular size and function. Left ventricular ejection fraction
is 60-65%.
S/P #29 Zahira S3 Ultra transcatheter aortic valve replacement. Peak/mean 10/26
mmHg. Trace aortic regurgitation.
Normal pericardium without effusion.
TAVR, 12/16/2024:
Conclusions:
1. Successful placement of #29 Zahira S3 Ultra aortic valve via right transfemoral approach with no acute complications.
2. New left bundle branch block.
Cardiac Catheterization, 10/11/2024:
CONCLUSIONS:
1. Right dominant circulation with a 30-40% tapering of the mid left main, and 80% lesion in the ostium/proximal margin of the LAD, a chronic total occlusion of the ostium of the left circumflex, a patent stent in the proximal margin of OM1 and a
chronic total occlusion of the distal aspect of the mid RCA, status post prior bypass (patent HEARD to LAD, patent SVG to OM1, patent SVG to RPDA).
2. Severely elevated filling pressures (PCWP = 35 mmHg at 105.2 kg).
3. Moderate, postcapillary pulmonary hypertension (mean PA = 44 mmHg, PCWP = 35 mmHg, cardiac output = 5.96 L/min, PVR = 1.51 Thurston units), WHO group 2.
4. Preserved cardiac index (2.6 L/min/m�).
5. Moderate to severe aortic valve stenosis on echocardiogram.
6. Persistent atrial fibrillation.
Physical Exam
Vital Signs/Labs
Vital Signs
Temp Pulse Resp BP Pulse Ox
36.5 C 94 20 113/59 96
12/17/24 03:44 12/17/24 04:30 12/17/24 03:44 12/17/24 03:37 12/17/24 03:44
12/15/24 12/16/24 12/17/24
11:59 11:59 11:59
Actual Weight 93 kg 92.3 kg
12/17/24 03:43
12/17/24 03:43
PT 15.6 Sec (11.4-14.6) H 12/09/24 11:58
INR 1.19 12/09/24 11:58
12/09/24
11:58
Rxo-J-Xxkzllhmdgk Pept 5210
Physical Exam
Constitutional: No acute distress and Comfortable
EENT: Anicteric and Moist mucous membranes
Cardiovascular: Pedal edema is absent, JVD pressure is normal, Rhythm/rate is irregular, S1S2 is normal and Murmur/rub/gallop absent
Respiratory: Respiratory effort normal, Lungs clear to auscul., Wheeze Absent, Crackles Absent and Rhonchi Absent
GI: Soft, Distention absent, Flat, Non tender, Normal bowel sounds and Distention present
Neuro/Psych: AO x 3
Other: Cath Site (Bilateral femoral access sites are C/D/I.)
Data Reviewed
-
Date of Service: December 17, 2024
Medical Decision Making: Reviewed Test Results, Independent Historian Assessment and Test Interpretation
EKG: Tracing Personally Visualized and interpreted and Report Reviewed by me
Echo: Tracing Personally Visualized and interpreted, Report Reviewed by me and Ordered by me
X-Ray/CT/US/MRI/NUC/PET: Image Personally Visualized and interpreted and Report Reviewed by me
Medical Tests (PFT, Pathology etc): Image Personally Visualized and interpreted and Report Reviewed by me
Labs: Labs Reviewed by me
--- NOTE | 2024-12-17 08:52 | W.PN.CT ---
Today's Communication / Plan
-
-pod #1
-no issues overnight
-in a-fib 80s-90s. No bradycardia or pauses
-new LBBB postop TAVR- resolved
-Echo today
-current meds (ASA, Eliquis, Coreg, Zetia, Zestril, Flomax)
-encourage IS, OOB, ambulate
-possible d/c with heart monitor
Assessment / Plan
-
- Izjgnsvb-ba-goevlw symptomatic progressive aortic stenosis - s/p R TF TAVR w/ placement of 29mm NAY 3 on 12/16/24, pod #1
- Post-TTE: mean gradient 3mmHg, trace PVL
- LVEDP assessment (not significantly elevated; 16mmHg)
- acute postop new LBBB w/o pauses/bradycardia/pacing requirements
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
- Moderate TR
- MVCAD w/ Hx of [place], S/P SUPRIYA to OM 12/2014 and CABG x 3 on 12/01/[address] Banuelos
- Chronic a-fib, on Eliquis preop
- Chronic b/l leg edema, R>L
- HTN/HLD
- Former smoker/active marajuana use
- Alcohol dependence
- Short-term memory loss x 2 years
- OA/DJD
- COPD
- TIA
Discussed patient care with: Nursing and Care Team
Subjective
-
Date of Service: December 17, 2024
Objective Data
-
PT 15.6 Sec (11.4-14.6) H 12/09/24 11:58
INR 1.19 12/09/24 11:58
Vital Signs
Vital Signs
Temp Pulse Resp BP Pulse Ox
97.8 F 94 18 154/88 96
12/16/24 22:55 12/17/24 01:15 12/16/24 22:55 12/16/24 22:52 12/16/24 22:55
CT Intake/Output/Weight
12/16/24 12/16/24 12/17/24
06:59 18:59 06:59
Intake Total 480 / 480
Output Total 275 / 575 300 / 575
Balance -275 / -95 180 / -95
SaO2: 96
Physical Exam
-
General: Awake and AOx3
Cardiovascular: Irregular rate & rhythm and Murmur (05/31 systolic @ lsb)
Respiratory: Clear and Decreased Breath Sounds
Incision: Other (groins are cdi, soft, nontender, no hematoma b/l)
Extremities: Other (b/l chronic LE venostasis with chronic RLE 2+ edema >LLE)
Abdomen: soft, nontender, nondistended, + bowel sounds
Data Reviewed
-
Lab Results: Results Reviewed
Medications: Active Meds Reviewed
Chest X-Ray: Report Reviewed and Image Reviewed
ECG: Report Reviewed and Image Reviewed
[2024-12-17] MEDS: TYLENOL 650 MG PO (09:00)
[2024-12-17] MEDS: ZESTRIL 20 MG PO (09:00)
[2024-12-17] MEDS: LASIX 40 MG PO (09:00)
[2024-12-17] MEDS: FLOMAX 0.4 MG PO (09:00)
[2024-12-17] MEDS: ZETIA 10 MG PO (09:00)
[2024-12-17] MEDS: ELIQUIS 5 MG PO ×2 (09:00→20:17)
[2024-12-17] MEDS: COREG 3.125 MG PO ×2 (10:19→20:17)
--- NOTE | 2024-12-17 10:28 | W.DCSUMMARY ---
Addendum entered and electronically signed by Mani Grajeda PA-C 12/18/24 09:02:
Patient's discharge was delayed by 24 hours due to a near syncopal event. He was monitored overnight and he remained stable with no further issues. Discussed with cardiology Dr. Sheikh who is arranging for outpatient rhythm monitoring. He will be
discharged in his baseline rhythm which is afib on eliquis.
Original Note:
Discharge Summary
Discharge Data
Date of Admission: 12/16/24
Date of Discharge: 12/17/24
Total time spent discharging patient (in min): 40
-
Pending Results: No
Hospital Course
Primary care physician: Dr. Genoveva Cespedes
Outpatient ict sales assistant: Dr. Jeffery Duarte
Inpatient consultants: Inpatient Cardiology
Procedures:
1. Right transfemoral transcatheter aortic valve replacement with number 29 mm sapient 3 Yang valve
Primary Diagnosis:
1. Moderate to severe symptomatic progressive aortic stenosis
2. Mild aortic regurgitation
3. Severe mitral annular calcification with trace mitral regurgitation
4. Moderate tricuspid regurgitation
5. 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
6. Atrial fibrillation on Eliquis
7. Hypertension
8. Hyperlipidemia
9. Former smoker, active marijuana use
10. History of alcohol dependence
11. Short-term memory loss x 2 years
12. Osteoarthritis/degenerative joint disease
13. Chronic obstructive pulmonary disease
14. Transient ischemic attack
Secondary Diagnoses:
1. Moderate to severe symptomatic progressive aortic stenosis
2. Mild aortic regurgitation
3. Severe mitral annular calcification with trace mitral regurgitation
4. Moderate tricuspid regurgitation
5. 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
6. Atrial fibrillation on Eliquis
7. Hypertension
8. Hyperlipidemia
9. Former smoker, active marijuana use
10. History of alcohol dependence
11. Short-term memory loss x 2 years
12. Osteoarthritis/degenerative joint disease
13. Chronic obstructive pulmonary disease
14. Transient ischemic attack
HPI:
Patient is a 74-year-old male who was admitted electively to undergo a transfemoral transcatheter aortic valve replacement. He was seen electively as an outpatient by attending physician and TAVR team and deemed an appropriate candidate for the
surgery described above.
Hospital course:
Patient presented to the [facility] OR on the date described above for the procedure described above. Patient tolerated procedure well. Procedure was performed under conscious sedation. He was transported to [facility] for recovery. Patient
was chronic atrial fibrillation. Postoperatively he remained atrial fibrillation however developed a new left bundle branch block. He did not necessitate any pressor support, temporary pacing wires, or have any arterial or venous sheaths in place.
He was transported to the interventional unit. On postoperative day #1 the patient remained in atrial fibrillation and his left bundle angy block resolved. He continued his preoperative medications consisting of aspirin, Eliquis, and
beta-hoang. He was seen by attending physician as well as TAVR coordinator. He will be sent home with rhythm star monitor secondary to postoperative left bundle branch block. Groins remained soft and stable without issues. Patient was
medically cleared to be discharged to home
Home medication changes:
Acetaminophen 650 mg Q4Hrs PRN for pain
Continue all previous home medications
Discharge Plan
-
Patient Disposition: Home (Routine Discharge)
Discharge Diagnosis/Procedures: R TF TAVR #29mm Zahira 3 (12/16)
Condition: Good
Diet: Low Fat, Low Cholesterol and 2 Gram Sodium
Activity: As tolerated
Driving Restrictions: No driving for 1 week
Bathing Restrictions: OK to Shower
Others Tests: 30- day follow up echocardiogram: 01/17/2025 @ 1:00 at [facility]
Other Services: Cardiac Rehab
Wound Care: NO lotions, powders, or creams to puncture sites
Specialty Instructions: Weigh Daily- Call MD for wt gain/loss 3 lbs overnight/5 lbs in 1 week
Referrals:
Audelia Ferrera CRNP [Specified Professional Personl, Cardiology] - 01/17/25 2:20 pm
Genoveva Cespedes MD [Family Provider, Family Practice]
Prescriptions:
New
acetaminophen 325 mg Tablet
650 mg PO Q4HPRN PRN (Reason: HERNANDEZ, mild pain, or fever >101F) Qty: 0 0RF
Rx Instructions:
Please purchase over the counter.
Continued
ezetimibe 10 MG tablet
10 mg PO DAILY
furosemide [Lasix] 20 mg Tablet
40 mg PO DAILY Qty: 0 0RF
carvedilol 3.125 mg Tablet
3.125 mg PO BID Qty: 0 0RF
tamsulosin 0.4 mg Capsule
0.4 mg PO DAILY Qty: 0 0RF
aspirin 81 mg Tablet
81 mg PO DAILY Qty: 0 0RF
Eliquis 5 MG tablet
5 mg PO BID Qty: 60 11RF
CoQ-10
1 cap PO NOON Qty: 0 0RF
Probiotic
1 cap PO DAILY Qty: 0 0RF
Vitamin B-12
1 cap PO DAILY Qty: 0 0RF
Vitamin C
1 cap PO BID Qty: 0 0RF
Vitamin D3
1 cap PO HS Qty: 0 0RF
magnesium glycinate
1 cap PO HS Qty: 0 0RF
lisinopril 20 mg Tablet
20 mg PO DAILY Qty: 0 0RF
Discharge Orders:
Discharge Patient (As Directed); Ordered 12/17/24
Ordered By: Renee Rodrigez
Discharge Date and Time
Print Language: KOSOVAN
--- NOTE | 2024-12-17 10:31 | W.PN.ANS.POP ---
Anesthesia Post Operative
- Anesthesia Post Op Note
Vital Signs Stable-See Nursing Note: Yes
Airway Patent: Yes
Adequate Pain Control: Yes
Change in Mental Status: No
Current Postoperative Nausea & Vomiting: No
Anesthesia Complications: No
General Anesthetic Recall: No
Unplanned Admission: No
Post Op Hydration Adequate: Yes
[2024-12-17 12:47] LABS: Glucose - Point of Care 97 mg/dl (70-99)
--- NOTE | 2024-12-17 12:56 | PTCARENOTE ---
Patient sitting on the toilet became diaphoretic, pale and lightheaded after moving bowels. He eventually became unresponsive, assisted to bed by wheelchair. He became responsive supine in the bed and back to baseline. BP 113/58, A-fib in the 70's,
no events on the telemetry seen. Annamaria Troy notified and in with patient
--- NOTE | 2024-12-17 13:05 | W.PN.UPDATE ---
Update Note
Progress Note Update
Called to see patient approximately 1244 for near syncopal event. Patient was in the bathroom an diaphoretic and pale. Assisted back to bed. BP 113/58, AF with HR 60s on telemetry review. Awake and appropriately answers questions, no neuro deficits
noted. Drs. Banuelos and Warren notified. Discharge postponed for today. TTE reported EF 55-60%, AV 11/6mmHg, no AI, no pericardial effusion.
--- NOTE | 2024-12-17 14:56 | CM ---
Reviewed chart. Met with Mr. Lechuga to review discharge plans. He states prior to admission he resides alone in a fourth floor apartment. He states he has an elevator to get to the fourth floor. He states prior to admission he was independent
with ambulation and adls. He states he does not have any DME in the home. He states his friend Ilene check on him almost everyday. Tried to find a VNA Agency in [place] to see him. Referral sent to [facility] and [facility] of
[facility] Both declined because they do not take his insurance. [facility], [facility] and [facility] do not go to [facility]. [facility]. Elidia could not find a provider. Telephone call
to friend Ilene to review above. She wanted information regarding resources in the [place] area. Gave her [facility], assisted living and SNF/Rehab. Physical and occupational therapy evaluation pending . He does not have any DME in the home.
He does have a prescription plan. If he will need SNF/Rehab. will need to find a bed and get approval from [employer]. Medical work-up in progress. The discharge plan is to return home with his friend checking on him verses SNF/Rehab. if
indicated when medically stable.
--- NOTE | 2024-12-17 16:46 | PTCARENOTE ---
Patient resting comfortable, denies lightheadedness, bed alarm audible, call wade in reach
--- NOTE | 2024-12-17 22:01 | PTCARENOTE ---
Received pt at change of shift resting in bed. pt AAOx2, disoriented to place. A-fib rhythm on tele with PVC's. HR in the 80's. pt denies CP or SOB. Right and left groins sites C.D.I. No bleeding or hematoma noted at this time. Bed/chair alarm on
and audible. Educated pt to call staff weapons officer for assistance ambulating. Urinal at bedside. Call wade within reach.
[2024-12-18 03:49] VITALS: BP 143/87
--- NOTE | 2024-12-18 05:52 | W.PN.CT ---
Today's Communication / Plan
-
-pod #2
-no issues overnight
-has near-syncope yesterday 12/17. - no significant bradycardia or pause during the episode. No focal deficits. BG was 97
-Echo 12/17: EF 55-60%, Well seated 29 Zahira S3 Ultra TAVR. Peak/mean gradients across the aortic valve are 11/6 mmHg respectively. No aortic regurgitation. No pericardial effusion. Compared to 12/16/24: prior TAVR gradients were 6/3 mmHg with trace
AR.
-new LBBB postop TAVR- resolved
-continue PT/OT
-current meds (Eliquis, Coreg, Zetia, Lasix, Zestril, Flomax)
-possible d/c with heart monitor
Assessment / Plan
-
- Okcmpfws-su-qifamh symptomatic progressive aortic stenosis - s/p R TF TAVR w/ placement of 29mm ZAHIRA 3 on 12/16/24, pod #2
- Post-TTE: mean gradient 3mmHg, trace PVL
- LVEDP assessment (not significantly elevated; 16mmHg)
- acute postop new LBBB w/o pauses/bradycardia/pacing requirements
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
- Moderate TR
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 Banuelos
- Chronic a-fib, on Eliquis preop
- Chronic b/l leg edema, R>L
- HTN/HLD
- Former smoker/active marajuana use
- Alcohol dependence
- Short-term memory loss x 2 years
- OA/DJD
- COPD
- TIA
- Acute postop near-syncope in the bathroom 12/17/24
Discussed patient care with: Nursing and Care Team
Subjective
-
Date of Service: December 18, 2024
Objective Data
-
Lab Results
12/17/24 03:43
12/17/24 03:43
PT 15.6 Sec (11.4-14.6) H 12/09/24 11:58
INR 1.19 12/09/24 11:58
Vital Signs
Vital Signs
Temp Pulse Resp BP Pulse Ox
98.3 F 97 18 143/87 96
12/18/24 03:49 12/18/24 05:00 12/18/24 03:49 12/18/24 03:49 12/18/24 03:49
CT Intake/Output/Weight
12/17/24 12/17/24 12/18/24
06:59 18:59 06:59
Intake Total 480 / 480
Output Total 800 / 1075 350 / 350
Balance -320 / -595 -350 / -350
SaO2: 96
Physical Exam
-
General: Awake and AOx3
Cardiovascular: Irregular rate & rhythm and Murmur (1/6 systolic @ lsb)
Respiratory: Clear and Decreased Breath Sounds
Incision: Other (groins are cdi, soft, nontender, no hematoma b/l)
Abdomen: soft, nontender, nondistended, + bowel sounds
Extremities: Other (b/l chronic LE venostasis with chronic RLE 2+ edema >LLE)
Data Reviewed
-
Lab Results: Results Reviewed
Medications: Active Meds Reviewed
Chest X-Ray: Report Reviewed and Image Reviewed
ECG: Report Reviewed and Image Reviewed
[2024-12-18 06:00] VITALS: BMI 28.1
[2024-12-18 07:34] VITALS: BP 138/83
[2024-12-18] MEDS: ZETIA 10 MG PO (07:35)
[2024-12-18] MEDS: COREG 3.125 MG PO (07:36)
[2024-12-18] MEDS: ZESTRIL 20 MG PO (07:36)
[2024-12-18] MEDS: LASIX 40 MG PO (07:37)
[2024-12-18] MEDS: ELIQUIS 5 MG PO (07:37)
[2024-12-18] MEDS: FLOMAX 0.4 MG PO (07:37)
--- NOTE | 2024-12-18 09:02 | W.PN.UPDATE ---
Update Note
Progress Note Update
patient's discharge was delayed due to near syncopal event. I addended yesterday's discharge summary to reflect this change. Please refer to that document for complete details.
--- NOTE | 2024-12-18 11:07 | PTCARENOTE ---
Pt received this am with no c/o of any chest pain or sob. OOB ad luis, gait steady. Bilateral groin sites WNL. Pt denies any dizziness or lightheadedness. Pt discharge to home with his friend. Discharge instructions given and reviewed with pt and his
friend with good understanding and all questions answered.
== END 2024-12-18 11:02 | disposition home or self-care (01) | DRG 267 ==
LOC: IVU 05:47
PROVIDERS: Physician Assistant Medical; ADMITTING PHYSICIAN Thoracic Surgery (Cardiothoracic Vascular Surgery); CONSULT PHYSICIAN Internal Medicine Cardiovascular Disease; FAMILY PHYSICIAN Family Medicine
PROC: 02RF38Z Replacement of Aortic Valve with Zooplastic Tissue, Percutaneous Approach (ICD-10-PCS; 2024-12-16)
DX: I35.0 Nonrheumatic aortic (valve) stenosis (principal); I48.19 Other persistent atrial fibrillation; I50.32 Chronic diastolic (congestive) heart failure; I34.81 Nonrheumatic mitral (valve) annulus calcification; I07.1 Rheumatic tricuspid insufficiency; I25.10 Atherosclerotic heart disease of native coronary artery without angina pectoris; S51.011A Laceration without foreign body of right elbow, initial encounter; W07.XXXA Fall from chair, initial encounter; I44.7 Left bundle-branch block, unspecified; R55 Syncope and collapse; I11.0 Hypertensive heart disease with heart failure; E78.5 Hyperlipidemia, unspecified; F10.20 Alcohol dependence, uncomplicated; M19.90 Unspecified osteoarthritis, unspecified site; J44.9 Chronic obstructive pulmonary disease, unspecified; R41.3 Other amnesia; I89.0 Lymphedema, not elsewhere classified; E66.9 Obesity, unspecified; N40.0 Benign prostatic hyperplasia without lower urinary tract symptoms; I87.2 Venous insufficiency (chronic) (peripheral); I25.2 Old myocardial infarction; Z95.1 Presence of aortocoronary bypass graft; Z87.891 Personal history of nicotine dependence; Z86.73 Personal history of transient ischemic attack (TIA), and cerebral infarction without residual deficits; Z95.5 Presence of coronary angioplasty implant and graft; Z79.01 Long term (current) use of anticoagulants
CPT/HCPCS: 33361; 36415; 71045; 71046; 80048; 80053; 81003; 81015; 82248; 82962; 83036; 83880; 85025; 85027; 85347; 85610; 86803; 86850; 86900; 86901; 87070; 93005; 93308; 93321; 93325; 97162; C1760; C1769; C1894; Q9967

== ENCOUNTER 2024-12-18 14:30 | Emergency (ER) | payer OTHER, SELFPAY ==
[2024-12-18 14:31] VITALS: BMI 28.7
[2024-12-18 14:34] VITALS: BP 120/66
[2024-12-18 14:35] VITALS: BP 120/66
--- NOTE | 2024-12-18 14:43 | ED.GENMED ---
History of Present Illness
General
Chief Complaint: Chest Pain
Time Seen by Provider: 12/18/24 14:42
History of Present Illness
History of Present Illness:
TIME OF INITIAL EVALUATION
- 2:46 PM
REVIEW OF OLD RECORDS
- The patient had TAVR but did have a near syncopal event yesterday. Echo 725 showed an EF of 55 to 60% and the TAVR was well-seated. He was found to have a new left bundle branch block transiently after TAVR. His medications at time of discharge
included Eliquis, Coreg, Zetia, Lasix, Zestril, Flomax.
Note:
CHIEF COMPLAINT(S)
Lightheadedness.
HISTORY OF PRESENT ILLNESS
The patient, a male, presented to the Emergency Department with a complaint of lightheadedness. He recently underwent a transcatheter aortic valve replacement (TAVR) procedure on , having stayed overnight in the facility. The patient
reported an episode where he felt very light-headed, although he did not feel like he was going to pass out. He does not have a history of atrial fibrillation and is unsure why he is taking apixaban (Eliquis), mentioning it was possibly held around
the time of surgery. Currently, the patient feels amazing when walking outside but occasionally needs to stop due to a lightheaded sensation, without a sense of impending syncope. He denies any chest pain or pressure today. Some swelling in the legs
was noted, especially in one that has always been larger. The patients friend called the ambulance for him to come to the hospital.
PHYSICAL EXAM
General: Alert, no acute distress.
Cardiovascular: Legs appear swollen, with one leg consistently larger than the other.
Respiratory: Respirations are non-labored.
SOCIAL DETERMINANTS AFFECTING HEALTH
The patient lives at home alone and receives help from a friend named Ilnee, who he also assists with work at her house.
PLAN
Await results from additional blood tests currently being processed.
Gave 500mL IVF
DIFFERENTIAL DIAGNOSIS
The Differential Diagnosis includes, in no particular order and is not limited to:
1. Hypotension post-TAVR
2. Postural orthostatic tachycardia syndrome
3. Dehydration or volume depletion
4. Medication side effects (consider apixaban)
5. Anemia
6. Heart arrhythmia
7. Heart failure exacerbation
8. Vasovagal syncope
9. Electrolyte imbalance
10. Deconditioning or fatigue post-surgery
EKG
- Yesterday's EKG showed A-fib 88, normal axis nonspecific ST abnormality, today's EKG A-fib [address] abnormality
LABS
- White count 8.4, hemoglobin 12.5 which is near where it was yesterday,
UPDATE
- I discussed case with CT surgery (Dr. Wells) with [facility] cardiology (Dr. Sheikh) and all are in agreement the patient should be discharged. Troponin is minimally elevated of doubtful clinical significance and is similar to what it was in
2020 and he just had a TAVR performed the other day. The patient is well-appearing at time of discharge.
- I had the patient walk around the emergency department with assistance and he did well. He had no shortness of breath. He states that he had some back pain earlier which is since resolved with walking around.
DIAGNOSIS
- Lightheadedness
- Recent TAVR
Past History
Past History
ED Past Medical History: Asthma, CAD, HTN, Hypercholesterolemia and [place] (Stent placement)
ED Past Surgical History: Tonsilectomy
Social History
Tobacco: Former smoker
Alcohol: Occasional
Drug: Marijuana
Phy Exam
Physical Exam
Physical Exam:
See HPI
Scores
Heart Score for Chest Pain Patients
STEMI patient?: Not applicable
Course
Orders/Labs/Results
Orders:
Orders
12/18/24 14:32
Electrocardiogram (*1) Urgent
Reason for Study: Chest Pain
EKG- Treatment ONCE
12/18/24 14:33
Complete Blood Count/With Diff Urgent
Comprehensive Metabolic Panel Urgent
Troponin I Urgent
12/18/24 14:55
0.9% Sodium Chloride 500 ml [Nss] 500 ml IV BOLUS
Abnormal Lab Results
12/18/24
14:33
RBC 4.37 L 10^6/uL
(4.70-6.10)
Hgb 12.5 L g/dL
(13.0-18.0)
Hct 38.0 L %
(39.0-52.0)
MCHC 32.9 L g/dL
(33.0-37.0)
RDW 15.3 H %
(11.5-14.5)
MPV 10.9 H fL
(7.4-10.4)
Absolute Monos (auto) 1.1 H 10^3/uL
(0.1-0.6)
Lymphocytes % 17.3 L %
(20.5-51.1)
Monocytes % 13.2 H %
(1.7-9.3)
Sodium 132 L mmol/L
(135-145)
BUN 21 H mg/dl
(9-20)
Glucose 104 H mg/dl
(70-99)
Troponin I 0.054 H* ng/ml
12/18/24 14:33
12/18/24 14:33
Vital Signs
Initial and Last Documented VS:
Initial Vital Signs
Pulse Ox
97
12/18/24 14:33
Last Documented Vital Signs
Temp Pulse Resp BP Pulse Ox
36.6 C 79 20 138/91 98
12/18/24 14:34 12/18/24 15:15 12/18/24 15:15 12/18/24 15:00 12/18/24 15:15
*Pulse Oximetry
SaO2: 96
Oxygen Mode of Delivery: Room air
Patient hypoxic: no
*Critical Care Note
Total Time (30-74mins, 75-104mins- exclusive of procedures): Not Applicable
ED Attending Note
-
Portions of this chart may have been created with voice recognition software.� Occasional wrong word or��sound alike� substitutions may have occurred due to the inherent limitations of voice recognition software.
Discharge Plan
Departure
Patient Disposition: Home (Routine Discharge)
Date of Disposition: 12/18/24
Time of Disposition: 15:32
Patient with high blood pressure during this ER visit?: Yes
Discharge Problem:
Intermittent lightheadedness
Prescriptions:
No Action
ezetimibe 10 MG tablet
10 mg PO DAILY
furosemide [Lasix] 20 mg Tablet
40 mg PO DAILY Qty: 0 0RF
carvedilol 3.125 mg Tablet
3.125 mg PO BID Qty: 0 0RF
tamsulosin 0.4 mg Capsule
0.4 mg PO DAILY Qty: 0 0RF
aspirin 81 mg Tablet
81 mg PO DAILY Qty: 0 0RF
Eliquis 5 MG tablet
5 mg PO BID Qty: 60 11RF
CoQ-10
1 cap PO NOON Qty: 0 0RF
Probiotic
1 cap PO DAILY Qty: 0 0RF
Vitamin B-12
1 cap PO DAILY Qty: 0 0RF
Vitamin C
1 cap PO BID Qty: 0 0RF
Vitamin D3
1 cap PO HS Qty: 0 0RF
magnesium glycinate
1 cap PO HS Qty: 0 0RF
lisinopril 20 mg Tablet
20 mg PO DAILY Qty: 0 0RF
acetaminophen 325 mg Tablet
650 mg PO Q4HPRN PRN (Reason: HERNANDEZ, mild pain, or fever >101F) Qty: 0 0RF
Rx Instructions:
Please purchase over the counter.
Referrals:
Genoveva Cespedes MD [Family Provider, Family Practice]
Activity Restrictions/Additional Instructions:
I spoke to the cardiology team and cardiothoracic team. All are in agreement for outpatient management and we see no clear indication for admission to the hospital. Return here if worse or other concerns.
Interventions
Interventions:
*Risk Screen - Suicide Last Done: 12/18/24 14:38
*General Assessment Last Done: 12/18/24 14:37
*Neglect/Abuse Screening Last Done: 12/18/24 14:38
*ED- Fall Risk Assessment Last Done: 12/18/24 14:37
*ED COVID-19 Vaccine History Last Done: 12/18/24 14:37
ED- Cardiac Assessment Last Done: 12/18/24 14:39
Discharge Date and Time
Print Language: SRI LANKAN
[2024-12-18 14:45] LABS: Hematocrit 38.0 % (39.0-52.0); Hemoglobin 12.5 g/dL (13.0-18.0); Mean Corp Hgb Conc. 32.9 g/dL (33.0-37.0); Mean Corpuscular Volume 87.0 fL (80.0-94.0); Nucleated Red Blood Cells % 0 % (-); Platelet Count 145 10^3/uL (130-400); Red Cell Dist. Width 15.3 % (11.5-14.5)
[2024-12-18 15:00] VITALS: BP 138/91
[2024-12-18] MEDS: NSS 500 IV (15:04)
[2024-12-18 15:08] LABS: Troponin I 0.054 ng/ml
[2024-12-18 15:12] LABS: Albumin 3.7 g/dl (3.5-5.0); Carbon Dioxide 30 mmol/L (22-30)
[2024-12-18 15:13] LABS: ALT (SGPT) 15 U/L (0-50); AST (SGOT) 21 U/L (17-59); Alkaline Phosphatase 59 U/L (38-126); Blood Urea Nitrogen 21 mg/dl (9-20); Calcium 9.2 mg/dl (8.4-10.2); Chloride 102 mmol/L (98-107); Estimated Creatinine Clearance 84 ml/min; Glucose 104 mg/dl (70-99); Potassium 4.1 mmol/L (3.5-5.1); Sodium 132 mmol/L (135-145); Total Protein 6.4 g/dl (6.3-8.2); eGFR > 60.00
== END 2024-12-18 15:56 | disposition home or self-care (01) ==
LOC: EMR 14:30
PROVIDERS: Student in an Organized Health Care Education/Training Program; EMERGENCY PHYSICIAN Emergency Medicine; FAMILY PHYSICIAN Family Medicine
DX: R42 Dizziness and giddiness (principal); R07.9 Chest pain, unspecified; I10 Essential (primary) hypertension; E78.00 Pure hypercholesterolemia, unspecified; I25.10 Atherosclerotic heart disease of native coronary artery without angina pectoris; J45.909 Unspecified asthma, uncomplicated; Z87.891 Personal history of nicotine dependence; Z95.2 Presence of prosthetic heart valve
CPT/HCPCS: 96360; 99284; 80053; 84484; 85025; 93005

== ENCOUNTER 2024-12-21 16:27 | Inpatient (IN) | payer OTHER, SELFPAY ==
[2024-12-21] VITALS (19 sets, daily range): BP systolic 139–186; BP diastolic 91–113; PULSE 97–105; BMI 27.8
--- NOTE | 2024-12-21 11:13 | ED.GENMED ---
History of Present Illness
<Bert Armendariz PA-C - Last Filed: 12/21/24 18:18>
General
Chief Complaint: Head Injury
Time Seen by Provider: 12/21/24 11:01
History of Present Illness
History of Present Illness:
74-year-old male presents to the emergency department for evaluation of a syncopal event and resultant fall that occurred last night. Patient is 5 days status post TAVR performed at this hospital, postoperative course was complicated by near
syncopal event however no bradycardia was noted on telemetry. He came to this ER several days ago with complaint of persistent lightheadedness and last night had a syncopal event while doing dishes. He fell to the ground striking his head on the
ground and is currently complaining of neck pain. He is currently anticoagulated on Eliquis. He denies any chest pain or shortness of breath at this time. He resides at home alone.
Past History
<Bert Armendariz PA-C - Last Filed: 12/21/24 18:18>
Past History
ED Past Medical History: Asthma, CAD, HTN, Hypercholesterolemia and [place] (Stent placement)
ED Past Surgical History: Tonsilectomy
Social History
Tobacco: Former smoker
Alcohol: Occasional
Drug: Marijuana
Review of Systems
<Bert Armendariz PA-C - Last Filed: 12/21/24 18:18>
Review of Systems
Allergies reviewed?: Yes
All Other Systems: ROS reviewed and negative except as documented in HPI and ROS
Phy Exam
<VAHID Bernal Last Filed: 12/21/24 18:18>
Physical Exam
Physical Exam:
GEN: Well appearing, NAD, WDWN
HEENT: Small hematoma to the right forehead oral mucosa moist, no C-spine precautions maintained, positive midline tenderness to the superior cervical spine with no crepitus
Cardiac: Irregular but controlled rate
Lung: No respiratory distress, no tachypnea, lungs clear to auscultation
MSK: No gross deformity or injuries
Skin: Good color, no pallor or jaundice, no rashes
Neuro: AO x3; CN II-XII grossly intact. BUE strength 5/5 in all patel, sensation intact and symmetric. BLE strength 5/5 in all patel, sensation intact and symmetric
Psych: Calm, cooperative
Course
<Bert Armendariz PA-C - Last Filed: 12/21/24 18:18>
Orders/Labs/Results
Orders:
Orders
12/21/24 10:00
CT Cervical Spine W/o Iv Contr Urgent
Comment:
Reason For Exam: fall on thinners
CT Head W/o Iv Contrast Urgent
Comment:
Reason For Exam: fall on thinners
12/21/24 10:06
Electrocardiogram (*1) Urgent
Reason for Study: QTc Monitoring
EKG- Treatment ONCE
12/21/24 11:27
Complete Blood Count/With Diff Urgent
Comprehensive Metabolic Panel Urgent
12/21/24 16:13
Admit/Transfer Patient As Directed
Co-Sign Provider:
Level of Care: Inpatient admission
Assign to:: Telemetry
Physician / Group: Dr. West
Transfer to: Telemetry
Diagnosis: Syncope d/t fall vs arrythmia s/p TAVR
Patient Condition: Fair
Reason for Telemetry: Syncope
Other Reason for Telemetry: Medication changes, fall, recent TAVR
Date to Stop Telemetry: 12/23/24
Time to Stop Telemetry: 11:00
Reason for Hospitalization: Syncope d/t fall vs arrythmia s/p TAVR with continued lightheadedness and med
changes
Expected length of stay greater than two midnights?: Yes
ELOS- Estimated Length of Stay in days: 5
I certify the patient meets the requirements for IP care: Yes
Reason for Overnight Stay: Standard of Care
12/21/24 16:14
PRN Pain Medication Management As Directed
May give lesser potent ordered pain med per pt: Yes
preference::
Protocol:: Medication orders for pain may be administered in a
manner that supports deferring to patient preference
when the pt is:
- Requesting an ordered lesser potent pain medication.
Least to most potent pain medications are defined
as: acetaminophen < NSAID < tramadol < opioids
(morphine, oxycodone, hydromorphone).
- Requesting a lesser dose of the same medication IF
ORDERED.
- Requesting a less intrusive route of administration
if both routes are prescribed by the provider (PO <
IV).
12/21/24 16:26
HydrALAZINE [Apresoline] 10 mg IV NOW STA
12/23/24 11:00
DC Protocol for Telemetry ONCE
Abnormal Lab Results
12/21/24
11:27
RBC 4.26 L 10^6/uL
(4.70-6.10)
Hgb 12.3 L g/dL
(13.0-18.0)
Hct 36.9 L %
(39.0-52.0)
RDW 15.3 H %
(11.5-14.5)
MPV 11.2 H fL
(7.4-10.4)
Absolute Neuts (auto) 7.0 H 10^3/uL
(1.4-6.5)
Absolute Lymphs (auto) 0.8 L 10^3/uL
(1.2-3.4)
Absolute Monos (auto) 0.8 H 10^3/uL
(0.1-0.6)
Neutrophils % 80.1 H %
(42.2-75.2)
Lymphocytes % 8.6 L %
(20.5-51.1)
Chloride 108 H mmol/L
(98-107)
BUN 32 H mg/dl
(9-20)
Glucose 120 H mg/dl
(70-99)
12/21/24 11:27
12/21/24 11:27
Vital Signs
Initial and Last Documented VS:
Initial Vital Signs
Temp Pulse Resp BP Pulse Ox
98 F 89 16 185/109 98
12/21/24 10:00 12/21/24 10:00 12/21/24 10:00 12/21/24 10:00 12/21/24 10:00
Last Documented Vital Signs
Temp Pulse Resp BP Pulse Ox
98 F 96 17 171/99 97
12/21/24 10:00 12/21/24 17:45 12/21/24 17:45 12/21/24 17:45 12/21/24 17:45
<Salas Phillips, DO - Last Filed: 12/21/24 11:44>
Orders/Labs/Results
Orders:
Orders
12/21/24 10:00
CT Cervical Spine W/o Iv Contr Urgent
Comment:
Reason For Exam: fall on thinners
CT Head W/o Iv Contrast Urgent
Comment:
Reason For Exam: fall on thinners
12/21/24 10:06
Electrocardiogram (*1) Urgent
Reason for Study: QTc Monitoring
EKG- Treatment ONCE
12/21/24 11:27
Complete Blood Count/With Diff Urgent
Comprehensive Metabolic Panel Urgent
12/21/24 16:13
Admit/Transfer Patient As Directed
Co-Sign Provider:
Level of Care: Inpatient admission
Assign to:: Telemetry
Physician / Group: Dr. West
Transfer to: Telemetry
Diagnosis: Syncope d/t fall vs arrythmia s/p TAVR
Patient Condition: Fair
Reason for Telemetry: Syncope
Other Reason for Telemetry: Medication changes, fall, recent TAVR
Date to Stop Telemetry: 12/23/24
Time to Stop Telemetry: 11:00
Reason for Hospitalization: Syncope d/t fall vs arrythmia s/p TAVR with continued lightheadedness and med
changes
Expected length of stay greater than two midnights?: Yes
ELOS- Estimated Length of Stay in days: 5
I certify the patient meets the requirements for IP care: Yes
Reason for Overnight Stay: Standard of Care
12/21/24 16:14
PRN Pain Medication Management As Directed
May give lesser potent ordered pain med per pt: Yes
preference::
Protocol:: Medication orders for pain may be administered in a
manner that supports deferring to patient preference
when the pt is:
- Requesting an ordered lesser potent pain medication.
Least to most potent pain medications are defined
as: acetaminophen < NSAID < tramadol < opioids
(morphine, oxycodone, hydromorphone).
- Requesting a lesser dose of the same medication IF
ORDERED.
- Requesting a less intrusive route of administration
if both routes are prescribed by the provider (PO <
IV).
12/21/24 16:26
HydrALAZINE [Apresoline] 10 mg IV NOW STA
12/23/24 11:00
DC Protocol for Telemetry ONCE
Abnormal Lab Results
12/21/24
11:27
RBC 4.26 L 10^6/uL
(4.70-6.10)
Hgb 12.3 L g/dL
(13.0-18.0)
Hct 36.9 L %
(39.0-52.0)
RDW 15.3 H %
(11.5-14.5)
MPV 11.2 H fL
(7.4-10.4)
Absolute Neuts (auto) 7.0 H 10^3/uL
(1.4-6.5)
Absolute Lymphs (auto) 0.8 L 10^3/uL
(1.2-3.4)
Absolute Monos (auto) 0.8 H 10^3/uL
(0.1-0.6)
Neutrophils % 80.1 H %
(42.2-75.2)
Lymphocytes % 8.6 L %
(20.5-51.1)
Chloride 108 H mmol/L
(98-107)
BUN 32 H mg/dl
(9-20)
Glucose 120 H mg/dl
(70-99)
12/21/24 11:27
12/21/24 11:27
Vital Signs
Initial and Last Documented VS:
Initial Vital Signs
Temp Pulse Resp BP Pulse Ox
98 F 89 16 185/109 98
12/21/24 10:00 12/21/24 10:00 12/21/24 10:00 12/21/24 10:00 12/21/24 10:00
Last Documented Vital Signs
Temp Pulse Resp BP Pulse Ox
98 F 96 17 171/99 97
12/21/24 10:00 12/21/24 17:45 12/21/24 17:45 12/21/24 17:45 12/21/24 17:45
<Bert Armendariz PA-C - Last Filed: 12/21/24 18:18>
MDM/Problems Addressed
MDM/Problems Addressed:
Certainly concerning the patient has had frequent lightheadedness and syncope/near syncope since his TAVR and as a result we will admit to the hospitalist service for telemetry monitoring and further cardiology evaluation. Telemetry monitoring in
the ED was unremarkable. As a result of his fall he did sustain a left occipital condylar fracture, imaging was reviewed with neurosurgery on-call, recommending hard collar and outpatient follow-up
<Bert Armendariz PA-C - Last Filed: 12/21/24 18:18>
*Pulse Oximetry
SaO2: 98
Oxygen Mode of Delivery: Room air
Patient hypoxic: no
*Critical Care Note
Total Time (30-74mins, 75-104mins- exclusive of procedures): Not Applicable
ED Attending Note
<Bert Armendariz PA-C - Last Filed: 12/21/24 18:18>
-
Portions of this chart may have been created with voice recognition software.� Occasional wrong word or��sound alike� substitutions may have occurred due to the inherent limitations of voice recognition software.
<Salas Phillips DO - Last Filed: 12/21/24 11:44>
ED Attending Note
Patient seen and examined by attending physician: Yes
I performed the substantive portion of visit, reviewed & personally made and approve the management plan that is documented in note by myself or OSMAR.: Yes
ED Attending Note:
Seen with PA examined independently patient sent to CAT scan upon presentation to triage, apparently had a fall yesterday and today he is anticoagulated recently had TAVR surgery, he is in a c-collar reviewed with radiology looks like he has
occipital condyle fracture his mental status is clear he is in rate controlled A-fib does complain of a mild posterior headache operative notes reviewed he had postprocedural bundle branch block does not have a pacemaker PA is reaching out to
neurosurgery and CT surgery/cardiology
Discharge Plan
Departure
Patient Disposition: Admit
Date of Disposition: 12/21/24
Time of Disposition: 12:08
Admit to: Telemetry
Presentation/result/management discussed w/ accepting MD/DO: Hospitalist
Discharge Problem:
Syncope, Closed fracture of left occipital condyle
Interventions
Interventions:
*Risk Screen - Suicide Last Done: 12/21/24 10:02
*General Assessment Last Done: 12/21/24 11:07
*Neglect/Abuse Screening Last Done: 12/21/24 10:02
*ED- Fall Risk Assessment Last Done: 12/21/24 11:06
*ED COVID-19 Vaccine History Last Done: 12/21/24 11:06
ED- Neurological Assessment Last Done: 12/21/24 11:34
ED-Skin Assessment Last Done: 12/21/24 11:34
[2024-12-21 11:34] LABS: Hematocrit 36.9 % (39.0-52.0); Hemoglobin 12.3 g/dL (13.0-18.0); Mean Corp Hgb Conc. 33.3 g/dL (33.0-37.0); Mean Corpuscular Volume 86.6 fL (80.0-94.0); Nucleated Red Blood Cells % 0 % (-); Platelet Count 159 10^3/uL (130-400); Red Cell Dist. Width 15.3 % (11.5-14.5)
[2024-12-21 11:50] LABS: ALT (SGPT) 18 U/L (0-50); AST (SGOT) 25 U/L (17-59); Albumin 3.9 g/dl (3.5-5.0); Alkaline Phosphatase 74 U/L (38-126); Blood Urea Nitrogen 32 mg/dl (9-20); Calcium 9.1 mg/dl (8.4-10.2); Carbon Dioxide 26 mmol/L (22-30); Chloride 108 mmol/L (98-107); Glucose 120 mg/dl (70-99); Potassium 4.1 mmol/L (3.5-5.1); Sodium 138 mmol/L (135-145); Total Protein 6.7 g/dl (6.3-8.2); eGFR > 60.00
[2024-12-21] MEDS: APRESOLINE 10 MG IV (16:36)
[2024-12-21] MEDS: FLUSH (NSS) 1 FLUSH IV (16:37)
--- NOTE | 2024-12-21 17:54 | CM ---
CM reviewed chart and met with pt bedside in ED. Lives alone in 4th floor apartment in [place], [place]. Has elevator access.
Independent with ADLs and personal care at baseline, independent with ambulation but using SPC over past few days.
Currently in cervical collar.
His friend Ilene assists with care.
Pt denies recent VN but unsure if VN in past, no hx SNF.
PCP: states he has PCP in [place] but cannot recall provider or practice name
Pharmacy: [facility]
CM will continue to follow for all discharge planning needs.
--- NOTE | 2024-12-21 18:06 | CONSULT.CT ---
Consultation
-
Date/Time Consultation Requested: 12/21/24
Date/Time Consultation Performed: 12/21/24
Requesting Provider: Dr. Deisy Stanley
Performing Provider: eldon RICARDO for Garrick Banuelos MD
Reason for Consultation: fall s/p TAVR
Patient History
History of Present Illness
Patient is a 74-year-old male who recently underwent elective R TF TAVR #29 Zahira 3 on 12/16/24 by Shamika Banuelos and Bhavesh Kelley. Patient's rhythm is chronic atrial fibrillation with new left bundle branch block immediately post procedure.
The LBBB resolved the following day. Patient had a near syncopal event which delayed discharge by 1 day. He went home on Eliquis/ASA, lisinopril, flomax, Lasix, zetia, coreg.
patient readmitted to [facility] ER today s/p fall while making breakfast. Patient says he 'slipped' on something and hit his head. Denies precipitating dizziness, palpitations. ECG reported A-fib 90s. CT head reported 5mm frontal temporal scalp hematoma
and no acute intracranial abnormality. CT spine reported severe DJD and lucency medial aspect of left occipital condyle concerning for fracture. Lab work within normal limits. Blood pressure high at 164/100 (120). A-fib 90s on telemetry and SPO2
97% on room air. Patient awake with c-collar in place. Only complaint is that c-collar bothers his neck.
Past Medical History
Past Medical History: Atrial Fib (On Eliquis), COPD, HTN, Hypercholesterolemia, NE (NSTEMI/CAD S/PE SUPRIYA to OM (12/2014)) and Other (Aortic stenosis; short-term memory loss; DJD; BPH; Class I obesity; MRSA nasal colonization; orthostatic
hypotension/syncope)
Past Surgical History
Past Surgical History: CABG (X 3 (HEARD-LAD, SVG-OM, SVG-PDA) 12/01/2020) and Other (Right TF TAVR #29 mm S3 (12/16/2024))
Family History
Mother: N/A
Father: N/A
Social History
Alcohol: Daily (1-2 beers daily)
Drug: None
Tobacco: Former Smoker
Personal: Single
Living: Alone
Employment: Retired
Allergies
Allergy/AdvReac Type Severity Reaction Status Date / Time
No Known Allergies Allergy Verified 12/18/24 14:36
Home Medications
�Medication �Instructions �Recorded �Confirmed �Type
ezetimibe 10 mg tablet 10 mg PO DAILY High cholesterol 05/09/21 12/21/24 History
apixaban 5 mg tablet (Eliquis) 5 mg PO BID Blood clot 12/16/24 12/21/24 Rx
prevention/tx #60 tabs
aspirin 81 mg tablet 81 mg PO DAILY Blood clot 12/16/24 12/21/24 Rx
prevention/tx #0 tabs
carvedilol 3.125 mg tablet 3.125 mg PO BID Heart 12/16/24 12/21/24 Rx
disease/condition #0 tabs
lisinopril 20 mg tablet 20 mg PO DAILY Blood pressure #0 12/16/24 12/21/24 Rx
tabs
tamsulosin 0.4 mg capsule 0.4 mg PO DAILY BPH #0 caps 12/16/24 12/21/24 Rx
acetaminophen 325 mg tablet 650 mg (2 x 325 mg) PO Q4HPRN PRN 12/17/24 12/21/24 Rx
HERNANDEZ, mild pain, or fever >101F #0
tabs
Lactobac no.2-Bifidobac no.1-S. 1 cap PO DAILY 12/21/24 12/21/24 History
thermo 112.5 billion cell capsule
(Visbiome)
ascorbic acid (vitamin C) 500 mg 500 mg PO DAILY 12/21/24 12/21/24 History
tablet (Vitamin C)
cholecalciferol (vitamin D3) 25 25 mcg PO DAILY 12/21/24 12/21/24 History
mcg (1,000 unit) tablet (Vitamin
D3)
coQ10 (ubiquinol) 100 mg capsule 100 mg PO DAILY 12/21/24 12/21/24 History
cyanocobalamin (vitamin B-12) 1,000 mcg PO DAILY 12/21/24 12/21/24 History
1,000 mcg tablet
furosemide 40 mg tablet (Lasix) 40 mg PO DAILY 12/21/24 12/21/24 History
Review of Systems
-
History Source: Patient
General: Reports No Symptoms
HEENT: Reports Other (posterior neck pain from C-collar)
Respiratory: Reports No Symptoms
Cardiac: Reports No Symptoms
Abdomen/GI: Reports No Symptoms
: Reports No Symptoms
Musculoskeletal: Reports No Symptoms
Neurological: Reports No Symptoms
Vascular: Reports No Symptoms
Physical Exam
Vital Signs
Temp 98 F 12/21/24 10:00
Temp route: Oral 12/21/24 10:00
Pulse 96 12/21/24 17:45
Resp Rate 17 12/21/24 17:45
Blood pressure 171/99 12/21/24 17:45
Blood pressure extremity used: Left upper arm 12/21/24 10:00
Position: Sitting 12/21/24 10:00
MAP (cuff-Samir Monitor) 118 12/21/24 17:45
SaO2 97 12/21/24 17:45
Oxygen Mode of Delivery Room air 12/21/24 11:13
Actual Weight 95.1 kg 12/21/24 16:28
Labs
12/21/24 11:27
12/21/24 11:27
Exam
General: Well Developed, Well Nourished and No Apparent Distress
HEENT: Normocephalic, Anicteric, Moist Mucous Membranes and PERRLA
Neck: Trachea Midline
Respiratory: Clear
Cardiac: Irregular Rhythm
GI: Soft, Non Tender, Non Distended and Normal Bowel Sounds
Rectal: Deferred by Provider
Skin: Warm and Dry
Neuro: AO x 3, Nonfocal/Grossly Intact and Other (uses cane to ambulate)
Extremities: Lower Level Edema (trace B/L LE edema)
Lymph: No Lymphadenopathy
Psych: Calm
Assessment / Plan
-
74 year old male s/p recent TAVR from12/16/24 , readmitted today s/p fall w/o loss of consciousness.
- Case d/w Dr. Banuelos- repeat head CT in 6 hours to assure no delayed head bleed
- AF-continue Coreg, hold Eliquis for now
- HTN- continue lisinopril and Lasix as fall not due to near-syncope
- recheck echo 12/22
- PT/OT consult
Data Reviewed
-
EKG: Report Reviewed by me and Discussed with Physician
CT Scan: Report Reviewed by me and Discussed with Physician
Old Records: Reviewed
--- NOTE | 2024-12-21 19:02 | HPS.HSE ---
Addendum entered and electronically signed by Deisy Stanley MD, Resident 12/31/24 16:51:
Allergies
Allergy/AdvReac Type Severity Reaction Status Date / Time
No Known Allergies Allergy Verified 12/29/24 08:57
Home Medications
ezetimibe 10 mg tablet 10 mg PO HS High cholesterol 05/09/21
apixaban 5 mg tablet (Eliquis) 5 mg PO BID Blood clot prevention/tx #60 tabs 12/16/24
carvedilol 3.125 mg tablet 3.125 mg PO BID Heart disease/condition #0 tabs 12/16/24
Lactobac no.2-Bifidobac no.1-S. thermo 112.5 billion cell capsule (Visbiome) 1 cap PO DAILY Gastrointestinal Issue 30 days #30 caps 12/28/24
acetaminophen 500 mg tablet (Tylenol Extra Strength) 1,000 mg (2 x 500 mg) PO TID 30 days #0 tabs 12/28/24
ascorbic acid (vitamin C) 500 mg tablet (Vitamin C) 500 mg PO DAILY Supplement 30 days #30 tabs 12/28/24
aspirin 81 mg tablet 81 mg PO DAILY Blood clot prevention/tx 30 days #30 tabs 12/28/24
cholecalciferol (vitamin D3) 25 mcg (1,000 unit) tablet (Vitamin D3) 25 mcg PO DAILY Supplement 30 days #30 tabs 12/28/24
cyanocobalamin (vitamin B-12) 1,000 mcg tablet 1,000 mcg PO DAILY Supplement 30 days #30 tabs 12/28/24
midodrine 2.5 mg tablet 2.5 mg PO DAILYPRN PRN SBP less than 130 30 days #30 tabs 12/28/24
polyethylene glycol 3350 17 gram oral powder packet 17 g PO DAILYPRN PRN constipation 30 days #30 ea 12/28/24
sennosides 8.6 mg-docusate sodium 50 mg tablet 1 tab PO BIDPRN PRN constipation 30 days #0 tabs 12/28/24
tizanidine 2 mg tablet 2 mg PO TIDPRN PRN headache 30 days #6 tabs 12/28/24
tamsulosin 0.4 mg capsule 0.4 mg PO HS 12/29/24
Addendum entered and electronically signed by Santa West MD 12/21/24 20:10:
I personally performed a history and physical exam of the patient and discussed management with the resident. I reviewed the resident's note and agree with the documented findings and plan of care HPI/CC.
GENERAL: well developed, well nourished, male in no apparent distress
HEENT: NC--trauma to right forehead--hard cervical collar in place
HEART: irreg irreg
LUNGS : clear to auscultation bilaterally
ABDOM: soft, nontender, nondistended, + bowel sounds
EXT: no cyanosis, clubbing--3+ pitting edema right LE
NEUROLOGIC: grossly intact but despite being oriented and answering name, place, year, president correctly, pt seems to not know who his doctors are, what meds he takes, etc
Syncope x 2? after recent TAVR placement--resulting in traumatic mechanical fall--had near syncope day of discharge from and went to ED later in day for same (pt does not remember)--etiology most likely orthostatic hypotension from intolerance to
new meds post TAVR (but do agree with vast differential listed by Dr. Stanley)--consult cards, CT surgery--check orthostatics--follow EKG and troponin--PT/OT--serial troponin--check TSH, cortisol--hold diuretics for now--cont Eliquis for now--PT
New occipital condyle fracture/Left rib pain/Right sided forehead hematoma--all from fall--CT head and CT cervical spine in ED 12/21/2024 were remarkable for a left-sided occipital condyle fracture which is being managed by neurosurgery with a collar
and outpatient follow-up plan. Per neurosurgery, is no need for surgical intervention-- Recommended hard collar immobilization follow-up as outpatient in 4 to 6 weeks--check CXR and rib x-rays to rule out fracture--pain control
chronic afib/flutter--cont coreg and Eliquis
HLD--cont zetia--check lipid panel
Essential hypertension--BP running high in ED-- s/p IV hydralazine 10 mg one-time dose 12/21/2024--cont home meds with parameters--hold lasix for now--carvedilol/asa/lisinopril
BPH--most likely-- Continue tamsulosin for now but can contribute to hypotension
Vitamin deficiency supplements- Patient placed on low-cholesterol diet-- Holding patient's home supplements of CoQ 10, probiotic, vitamin B12, vitamin C, vitamin D3, magnesium glycinate
DVT proph--Eliquis
CODE STATUS: Full code
Original Note:
Family Physician
-
Family Physician: NOT KNOW UNKNOWN - PT DOES
Chief Complaint
-
Fall, possible syncope
History of Present Illness
Mr. Lechuga is a 74 yo male with PMH of CAD s/p SUPRIYA to OM3 12/2014, then CABG 11/2020, persistent A fib (on Eliquis, started 12/16/2024), chronic HFpEF, moderate/severe s/p TAVR 5 days ago on 12/16/24, moderate/severe TR, HTN, hyperlipidemia, and
lymphedema who presented to the ED today after a fall. In in his TAVR postop course, he was noted to have a near syncope event postop day 2 however was discharged on the same day the same day 12/18 as the event around 9 AM scratch that. He returned
to the ED at 2 PM the same day after having a syncopal event at home and a fall. In the ED at that time, CT surgery and cardiology team were in agreement that he can be managed outpatient. Interestingly, the patient does not recall this event nor
visit to the ED. It was also noted that his Echo on 12/17/2024 showed an EF of 55 to 60% and the TAVR was well-seated.� Of note, he was found to have a new left bundle branch block transiently after TAVR, but it resolved and he never needed pacing.�
His medications at time of discharge from his TAVR included Eliquis (new), Coreg, Zetia, Lasix (new), Zestril, Flomax. He has been taking his medications routinely since discharge.
In the ED today, Mr. Lehcuga says this fall was different than his previous falls. He states that he slipped on something in his home while washing breakfast dishes around 7:30 AM. He states he fell backwards and hit the back of his head and his
left side on the ground. He then got himself up and went and laid in bed, which is when he felt some pain in his neck and on his left side and decided to come to the ED. He denies lightheadedness, dizziness, vision changes, blacking out, feeling
sweaty or having chills prior to the fall, chest pain, diet changes, and shortness of breath. He also reports some urinary frequency today. He has not had any medications today. Of note, he lives alone and states that his friend Ilene would be
able to provide history for him. She has a primary contact in his chart.
Medical History
Past Medical History
Past Medical History: Reports Arrhythmia (Chronic A-fib on Eliquis), CAD (Status post CABG x 3 on 12/01/2020), COPD (Per chart review, patient denies) and HTN
Additional Past Medical History:
Severe aortic stenosis status post TAVR on 12/16/2024, hyperlipidemia, TIA, chronic bilateral leg edema with right worse than left
Past Surgical History: Reports Cardiac (CABG x 3 on 12/01/2020, aortic stenosis status post TAVR on 12/16/2024) and Tonsilectomy
Social History
Tobacco: Former Smoker (Reports smoking 1 pack a day for over 20 years, quit in 2023)
Alcohol: Occasional (Quit a year ago although he drinks occasionally, 1 glass of wine once a week or so)
Drug: Marijuana (Smokes qoc-lvtt-hrt marijuana 3-4 times a week)
Living: Alone (States his friend Ilene helps him out when he needs it and lives close by)
Family History
Family History: Diabetes (Mother)
Allergies / Home Medications
Allergies reflects when Allergies were last updated in [facility].
Home Medications with original date entered in [facility]
Allergy/Medication List:
No known allergies
Review of Systems
-
Constitutional: Reports No Symptoms
Respiratory: Reports No Symptoms
Cardiac: Reports Syncope
Abdomen/GI: Reports No Symptoms
: Reports Frequency
Skin: Reports Other (Right-sided hematoma on forehead, bruising on left rib cage; both from fall)
Neurological: Reports No Symptoms
Psych: Reports Calm
Physical Exam
Vital Signs
Vital Signs
Temp Pulse Resp BP Pulse Ox
98 F 96 17 171/99 97
12/21/24 10:00 12/21/24 17:45 12/21/24 17:45 12/21/24 17:45 12/21/24 17:45
Physical Exam
General: Well Developed, Well Nourished, Conversant and Other (He is in c-collar per neurosurgery for his fracture, but conversant and alert)
HEENT: PERRLA, Nose Appears Normal, Ears Appear Normal and Other (Traumatic head with small right-sided hematoma on forehead, and unkept hair, wearing a cervical collar)
Respiratory: Clear
Cardiac: S1/S2, Irregular Rhythm and Murmur
GI: Soft and Non Tender
Skin: Warm, Dry and Other (With bruises on the left rib cage and forehead)
Neuro: Awake, Alert, Oriented, No Motor Deficits, Nonfocal/grossly intact and No Sensory Deficits
Psych: Calm
Laboratory Results
-
12/21/24 11:27
12/21/24 11:27
Laboratory Results
Total Bilirubin 1.2 mg/dl (0.2-1.3) 12/21/24 11:27
AST 25 U/L (17-59) 12/21/24 11:27
ALT 18 U/L (0-50) 12/21/24 11:27
Alkaline Phosphatase 74 U/L (38-126) 12/21/24 11:27
Data Reviewed
-
CT Scan: Report Reviewed by me and Discussed with Physician
Medical Tests (Nuc Med, Echo, EKG etc): Discussed with Physician
Lab Data: Discussed with Physician
Impression/Plan
-
IMPRESSION:
Mr. Lechuga is a 74 yo male with PMH of CAD s/p SUPRIYA to OM3 12/2014, then CABG 11/[address] Banuelos, persistent A fib (was on eliquis but stopped it and restarting today), chronic HFpEF, moderate/severe s/p TAVR here on 12/16/24 and new med of
Lasix, moderate/severe TR, HTN, hyperlipidemia, and lymphedema here for workup after his second fall since discharge from TAVR 5 days ago and found to have a left-sided occipital condyle fracture. Given his cardiac history and recent procedure, he
is being admitted to telemetry for further monitoring. See subjective for full history.
PLAN:
#Fall
#Syncope s/p recent TAVR
Given his recent cardiac procedure, there is high concern for a cardiac cause for his syncope/falls. On the differential are conduction abnormalities, valve dysfunction, arrhythmias (possibly RVR episodes with his chronic A-fib), tamponade, and SC.
EKG in the ED today had no significant changes compared to priors. Cardiology and cardiothoracic surgery were consulted and will follow with recs. Noncardiac possibilities for Mr. Lechuga's syncope can include noncardiac causes such as
vasovagal syncope, syncope due to changes in med (recently added Lasix), and electrolyte imbalances. Although unlikely, PE, stroke or TIA, and infection causing weakness are also possible. He will be monitored on telemetry and placed on fall
precautions.
- CT surgery and cardiology consult in place
- On telemetry
- Repeat EKG ordered after transfer from ED
- Follow-up CBC, BMP, trops, BNP
- Follow-up UA with reflex to culture
- Follow-up TSH and cortisol
- Follow-up imaging: Chest x-ray and DVU bilateral lower extremity
- Continue Eliquis 5 mg twice daily
#New occipital condyle fracture
#Left rib pain
# Right sided forehead hematoma
CT head and CT cervical spine in ED 12/21/2024 were remarkable for a left-sided occipital condyle fracture which is being managed by neurosurgery with a collar and outpatient follow-up plan. Per neurosurgery, is no need for surgical intervention.
- Neurosurgery consulted
-- Recommend hard collar immobilization follow-up as outpatient in 4 to 6 weeks
-Follow-up chest x-ray C/F for rib fracture
- Acetaminophen 650 mg p.o. every 4 hours as needed for pain control
- Ice for hematoma
#Hyperlipidemia
- Continue home ezetimibe 10 mg tablet daily
#Essential hypertension s/p IV hydralazine 10 mg one-time dose 12/21/2024
Blood pressure in the ED was 180s over 110s. Patient received a one-time drip of IV hydralazine 10 mg. We will continue home medications and consult cardiology for further recs. Of note, patient was started on Lasix 20 mg daily at recent
discharge. We will be holding this given concern for orthostatic hypotension causing falls and syncope.
- Hold Lasix 20 mg daily until orthostatic vitals are back
-Continue home carvedilol 3.125 mg p.o. twice daily
-Continue home aspirin 81 mg daily
-Continue lisinopril 20 mg p.o. daily -hold if systolic blood pressure is less than 100 or heart rate is less than 60
#BPH
- Continue tamsulosin 0.4 mg p.o. daily
#Vitamin deficiency supplements
- Patient placed on low-cholesterol diet
- Holding patient's home supplements of CoQ 10, probiotic, vitamin B12, vitamin C, vitamin D3, magnesium glycinate
CODE STATUS: Full code
--- NOTE | 2024-12-21 20:45 | PTCARENOTE ---
Pt arrived to room 418-02. Pt ambulated from stretcher to bed with x1 assist/ standby. Pt AAOx3, VSS. Pt with C- collar in place. Pt oriented to room, call wade placed within reach. Bed alarm applied.
[2024-12-21] MEDS: FLOMAX 0.4 MG PO (21:05)
[2024-12-21] MEDS: COREG 3.125 MG PO (21:05)
[2024-12-21] MEDS: ELIQUIS 5 MG PO (21:05)
[2024-12-21] MEDS: ZETIA 10 MG PO (21:06)
[2024-12-21] MEDS: ZESTRIL 20 MG PO (21:06)
[2024-12-21] MEDS: TYLENOL 650 MG PO (21:06)
[2024-12-21 21:21] LABS: Troponin I 0.032 ng/ml
[2024-12-21 21:41] LABS: Cortisol, Random 29.6 ug/dl
[2024-12-21] MEDS: MELATONIN 5 MG PO (23:57)
[2024-12-21] MEDS: ULTRAM 25 MG PO (23:57)
[2024-12-22] VITALS (9 sets, daily range): BP systolic 109–171; BP diastolic 75–111; PULSE 84–132; O2SAT 98
[2024-12-22 02:54] LABS: Troponin I 0.032 ng/ml
[2024-12-22 03:27] LABS: Urine Character Clear (Clear)
[2024-12-22 03:41] LABS: Urine Red Blood Cell 0-2 /HPF (0-2); Urine White Cell None Seen /HPF (0-5)
[2024-12-22] MEDS: ZESTRIL 20 MG PO (09:23)
[2024-12-22] MEDS: LOW STRENGTH ASPIRIN 81 MG PO (09:23)
[2024-12-22] MEDS: FLOMAX 0.4 MG PO (09:23)
[2024-12-22] MEDS: ZETIA 10 MG PO (09:23)
[2024-12-22] MEDS: COREG 3.125 MG PO ×2 (09:24→21:06)
--- NOTE | 2024-12-22 10:12 | CON.CAR ---
Addendum entered and electronically signed by Rajni Rivera MD 12/22/24 15:42:
I saw and examined the patient.
The OIL WELL LOGGER's note was reviewed and I agree with the note.
Comment:74 y/o male (cardiology patient of Dr. Duarte) with HTN, HLD, HFpEF, persistent AF, CAD s/p CABG, and severe with recent TAVR 12/16/24 returns with fall with suspected syncope. He is an extremely poor historian but luckily his power of
residential roofer and friend Ilene is at the bedside and adds to the history. Of note, she does not live with him and he lives independently. The day after his recent TAVR, he had a syncopal episode while in the CVICU in the setting of standing to urinate.
Telemetry at that time showed atrial fibrillation. He was monitored for another day and sent home. However on the day of discharge he returned to the ER for more lightheadedness when he was ambulating. He did not have a syncopal episode at that
time. Apparently he may have had a syncopal episode at home in the last 2 days and definitely had a fall of some sort. He thinks there may have been 2 separate episodes and one was a slip and fall the other may have been syncope. Regardless, he
states he has no palpitations or chest pain and is currently feeling well. Does not believe lightheadedness or orthostatic symptoms have been present prior to his TAVR. Of note, he has lost a significant amount of weight in the last month. He
reports that his teeth were extracted in preparation for his valve and he has been eating poorly. Additionally, 2 days ago during an intense heat wave he took a mile walk by himself, question if this was prior to any syncopal episode.
Additionally, he was continuing to take furosemide 40 mg once a day when home. While here, he is markedly hypertensive when supine but has significant and aggressive drop in blood pressure with standing.Unfortunately, with one of his falls he
suffered a left occipital condyle fracture neurosurgery is now consulted, while he awaits he is wearing a c-collar. He is otherwise well-appearing and in no apparent distress. Lungs are clear to auscultation bilaterally. There is no evidence of
lower extremity edema. He has a an irregularly irregular rate and rhythm. At times rates are accelerated but there is no significant pauses or bradycardic response seen. Echocardiogram was performed today showing normal LVEF, he does have an
enlarged right ventricle but when I looked at prior studies and compared [id number] this was not new. It does appear to have normal function. He has a well-seated #29 ZAHIRA S3 ultra TAVR. Mean gradient 4 mmHg. IVC was normal.
Syncope: Differential diagnosis remains broad. There was a report of left bundle branch block transiently postoperatively. However this is no longer seen. No evidence of high-grade AV block. History seems most consistent with orthostasis. He
has lost a significant amount of weight and was continued on diuretic postprocedure. No urgent indication for pacemaker. Would continue to monitor his telemetry. Would liberalize his fluid intake. Will hold further diuretic. Given significant
drop when standing, will allow for some mild supine permissive hypertension. If needed can use short acting captopril for bedtime given the eventual need for ongoing anticoagulation. Neurosurgery to see him holding Eliquis until repeat CT scan
is completed.
Will follow.
Original Note:
Consultation
Consultation Request
Date/Time Consultation Requested: 12/21/24 1740
Date/Time Consultation Performed: 12/22/24 1130
Requesting Provider: Dr. Stanley
Performing Provider: Kandis RICARDO for Dr. Rivera
Reason for Consultation: syncope
Medical History
-
Chief Complaint: fall
History of Present Illness:
74 y/o male (cardiology patient of Dr. Duarte) with HTN, HLD, HFpEF, persistent AF, CAD s/p CABG, and severe with recent TAVR 12/16/24 returns with fall with suspected syncope. Of note, he had a LBBB post-op and was kept an extra day for presyncope.
Plan was for OP monitor, but looks like that did not happen. He came back to the ER with dizziness, but was sent home. He is now back with fall with suspected syncope. He is a poor historian, but tells me he was standing washing his dishes and then
had a slip and fall. But when I asked him if he lost consciousness he thinks he may have and also thinks he may have been dizzy, which caused the 'slip and fall'. He sustained injuries including scalp hematoma and evidence for left occipital condyle
fracture- he is wearing a brace and neurosurgery is consulted.
Past Medical History
Past Medical History: Arrhythmias, CAD, CHF, HTN, Hypercholesterolemia and Valvular Disease
Social History
Living: Alone
Family History
Family History: Reviewed & Not Pertinent
Allergies / Home Medications
Allergy/AdvReac Type Severity Reaction Status Date / Time
No Known Allergies Allergy Verified 12/18/24 14:36
�Medication �Instructions �Recorded �Confirmed �Type
ezetimibe 10 mg tablet 10 mg PO DAILY High cholesterol 05/09/21 12/21/24 History
apixaban 5 mg tablet (Eliquis) 5 mg PO BID Blood clot 12/16/24 12/21/24 Rx
prevention/tx #60 tabs
aspirin 81 mg tablet 81 mg PO DAILY Blood clot 12/16/24 12/21/24 Rx
prevention/tx #0 tabs
carvedilol 3.125 mg tablet 3.125 mg PO BID Heart 12/16/24 12/21/24 Rx
disease/condition #0 tabs
lisinopril 20 mg tablet 20 mg PO DAILY Blood pressure #0 12/16/24 12/21/24 Rx
tabs
tamsulosin 0.4 mg capsule 0.4 mg PO DAILY BPH #0 caps 12/16/24 12/21/24 Rx
acetaminophen 325 mg tablet 650 mg (2 x 325 mg) PO Q4HPRN PRN 12/17/24 12/21/24 Rx
HERNANDEZ, mild pain, or fever >101F #0
tabs
Lactobac no.2-Bifidobac no.1-S. 1 cap PO DAILY Gastrointestinal 12/21/24 12/21/24 History
thermo 112.5 billion cell capsule Issue
(Visbiome)
ascorbic acid (vitamin C) 500 mg 500 mg PO DAILY Supplement 12/21/24 12/21/24 History
tablet (Vitamin C)
cholecalciferol (vitamin D3) 25 25 mcg PO DAILY Supplement 12/21/24 12/21/24 History
mcg (1,000 unit) tablet (Vitamin
D3)
coQ10 (ubiquinol) 100 mg capsule 100 mg PO DAILY Supplement 12/21/24 12/21/24 History
cyanocobalamin (vitamin B-12) 1,000 mcg PO DAILY Supplement 12/21/24 12/21/24 History
1,000 mcg tablet
furosemide 40 mg tablet (Lasix) 40 mg PO DAILY Fluid 12/21/24 12/21/24 History
Retention/Swelling
Review of Systems
-
History Source: Patient and Other (chart)
All other systems: Negative unless noted
Cardiac: Syncope (fall with possible syncope as described)
Physical Exam
Vital Signs
Temp Pulse Resp BP Pulse Ox
97.5 F 80 14 169/95 96
12/22/24 08:44 12/22/24 08:44 12/22/24 08:44 12/22/24 08:44 12/22/24 08:44
Lab Results
Troponin I 0.032 ng/ml 12/22/24 02:05
Vly-N-Kmifjwnbimb Pept 5610 pg/ml 12/22/24 09:24
Physical Exam
General: Well Developed, Well Nourished and No Apparent Distress
HEENT: Normocephalic and Anicteric
Respiratory: Clear and Non Labored Respirations
Cardiac: Irregular Rhythm
Musculoskeletal: No Edema
Skin: Warm and Dry
Neuro: AO x 3
Psych: Calm
Impression / Plan
-
74 y/o male (cardiology patient of Dr. Duarte) with HTN, HLD, HFpEF, PAF, CAD s/p CABG, and severe with recent TAVR 12/16/24 returns with fall with possible syncope.
Fall with possible syncope:
-he is poor historian, but thinks he may have been dizzy and passed out versus slip and fall. Injuries have been sustained as noted in detail.
-etiology unclear. Echo without effusion. Tele with AFIB. He does technically have orthostatic hypotension, but his standing pressures are 140, which should not cause syncope. Injuries as noted, repeat head CT pending. Neuro surgery consulted.
Severe aortic valve stenosis
-S/P #29 Yang ZAHIRA Resilia TAVR via right transfemoral approach on 12/16/2024.
-Transient LBBB post-op, as noted. Tele currently AFIB - rates okay.
-Eliquis held pending repeat head CT per CTS
-Echo 12/22/24: EF 55-60%. Enlarged right ventricular size. Normal right ventricular systolic function. Well seated #29 Zahira S3 Ultra TAVR. Peak/mean gradients across the aortic valve are 9/4 mmHg. No aortic regurgitation is seen. Moderate
tricuspid regurgitation. Estimated pulmonary artery pressure of 20-25 mmHg.
CAD:
-hx CABG
-stable
Persistent atrial fibrillation:
-continue Coreg
-Eliquis placed on hold by CT surgery with injuries as noted
HTN:
-BP's elevated, but technically orthostatic so will not adjust meds upward at this time
-continue current meds for now, keep HOB elevated
HFpEF, chronic, stable:
-on Lasix, appears euvolemic
Data Reviewed
-
EKG: Tracing Personally Visualized and interpreted (AFIB ST and T abnormality- no acute change to my review)
CT Scan: Report Reviewed by me (No acute intracranial abnormality noted. 5 mm right frontotemporal scalp hematoma. Moderate atrophy most pronounced in the anterior temporal lobes.)
Medical Tests (Nuc Med, Echo etc): Report Reviewed by me (Echo 12/22/24: EF 55-60%. Enlarged right ventricular size. Normal right ventricular systolic function. Well seated #29 Zahira S3 Ultra TAVR. Peak/mean gradients across the aortic valve are 9/4
mmHg. No aortic regurgitation is seen. Moderate tricuspid regurgitation. )
Labs: Labs Reviewed by me
[2024-12-22 10:24] LABS: Troponin I 0.019 ng/ml
[2024-12-22 10:28] LABS: Blood Urea Nitrogen 20 mg/dl (9-20); Calcium 9.5 mg/dl (8.4-10.2); Carbon Dioxide 22 mmol/L (22-30); Chloride 106 mmol/L (98-107); Estimated Creatinine Clearance 112 ml/min; Glucose 123 mg/dl (70-99); Magnesium 2.0 mg/dl (1.6-2.3); Potassium 4.2 mmol/L (3.5-5.1); Sodium 136 mmol/L (135-145); eGFR > 60.00
[2024-12-22 10:34] LABS: Hematocrit 42.5 % (39.0-52.0); Hemoglobin 14.4 g/dL (13.0-18.0); Mean Corp Hgb Conc. 33.9 g/dL (33.0-37.0); Mean Corpuscular Volume 85.0 fL (80.0-94.0); Nucleated Red Blood Cells % 0 % (-); Platelet Count 205 10^3/uL (130-400); Red Cell Dist. Width 15.1 % (11.5-14.5)
[2024-12-22 11:05] LABS: TSH 2.32 uIU/ml (0.47-4.68)
[2024-12-22 14:23] LABS: Troponin I 0.016 ng/ml
--- NOTE | 2024-12-22 16:10 | CM ---
Patient seen at bedside with physicians and patient friend Ilene. Patient friend Ilene is asking for placement as patient lives alone, Patient very sleepy today. Patient seen by therapy and recommending home health, CM requested physician consider
PM&R consult due to patient recent TAVR and 2x assessment by ED as well as concerns for fracture in recent fall per physicians. CM will await PM&R assessment and continue to follow for discharge planning needs.
Plan; home with VN vs SNF vs Acute rehab pending assessments
--- NOTE | 2024-12-22 17:29 | W.PN.HOSP.TC ---
Addendum entered and electronically signed by Santa West MD 12/23/24 19:42:
I saw and evaluated the patient independently. I reviewed the resident�s note and agree with findings and plan as documented by Dr. Stanley.
GENERAL: well developed, well nourished, male in no apparent distress
HEENT: NC--trauma to right forehead--hard cervical collar in place
HEART: irreg irreg
LUNGS : clear to auscultation bilaterally
ABDOM: soft, nontender, nondistended, + bowel sounds
EXT: no cyanosis, clubbing--3+ pitting edema right LE
NEUROLOGIC: grossly intact but despite being oriented and answering name, place, year, president correctly, pt seems to not know who his doctors are, what meds he takes, etc--poor historian
Syncope x 2 after recent TAVR placement--resulting in traumatic mechanical fall--had near syncope day of discharge from and went to ED later in day for same (pt does not remember)--etiology most likely orthostatic hypotension from intolerance to
new meds post TAVR --apprec cards, CT surgery-- orthostatics positive--PT/OT-- TSH & cortisol WNL--holding diuretics--cont Eliquis for now--PT--no fluid restriction
New occipital condyle fracture/Left rib pain/Right sided forehead hematoma--all from fall--CT head and CT cervical spine in ED 12/21/2024 were remarkable for a left-sided occipital condyle fracture which is being managed by neurosurgery with a collar
and outpatient follow-up plan. Per neurosurgery, is no need for surgical intervention-- Recommended hard collar immobilization follow-up as outpatient in 4 to 6 weeks-- CXR and rib x-rays show no fractures
chronic afib/flutter--cont coreg and Eliquis
HLD--cont zetia--check lipid panel
Essential hypertension--BP running high but aggressive treatment limited by orthostasis-- IV hydralazine-cont home meds with parameters, changed lisinopril to HS --hold lasix for now--carvedilol/asa
BPH--most likely-- Continue tamsulosin for now but can contribute to hypotension--transitioned to night
Vitamin deficiency supplements- Patient placed on low-cholesterol diet-- Holding patient's home supplements of CoQ 10, probiotic, vitamin B12, vitamin C, vitamin D3, magnesium glycinate
DVT proph--Eliquis
CODE STATUS: Full code
Addendum entered and electronically signed by Santa West MD 12/22/24 19:06:
I saw and evaluated the patient independently. I reviewed the resident�s note and agree with findings and plan as documented by Dr. Stanley.
GENERAL: well developed, well nourished, male in no apparent distress
HEENT: NC--trauma to right forehead--hard cervical collar in place
HEART: irreg irreg
LUNGS : clear to auscultation bilaterally
ABDOM: soft, nontender, nondistended, + bowel sounds
EXT: no cyanosis, clubbing--3+ pitting edema right LE
NEUROLOGIC: grossly intact but despite being oriented and answering name, place, year, president correctly, pt seems to not know who his doctors are, what meds he takes, etc--poor historian
Syncope x 2? after recent TAVR placement--resulting in traumatic mechanical fall--had near syncope day of discharge from and went to ED later in day for same (pt does not remember)--etiology most likely orthostatic hypotension from intolerance to
new meds post TAVR (but do agree with vast differential listed by Dr. Stanley)--apprec cards, CT surgery-- orthostatics positive--PT/OT-- TSH & cortisol WNL--hold diuretics--cont Eliquis for now--PT
New occipital condyle fracture/Left rib pain/Right sided forehead hematoma--all from fall--CT head and CT cervical spine in ED 12/21/2024 were remarkable for a left-sided occipital condyle fracture which is being managed by neurosurgery with a collar
and outpatient follow-up plan. Per neurosurgery, is no need for surgical intervention-- Recommended hard collar immobilization follow-up as outpatient in 4 to 6 weeks-- CXR and rib x-rays show no fractures
chronic afib/flutter--cont coreg and Eliquis
HLD--cont zetia--check lipid panel
Essential hypertension--BP running high in ED-- s/p IV hydralazine 10 mg one-time dose 12/21/2024--cont home meds with parameters--hold lasix for now--carvedilol/asa/lisinopril
BPH--most likely-- Continue tamsulosin for now but can contribute to hypotension
Vitamin deficiency supplements- Patient placed on low-cholesterol diet-- Holding patient's home supplements of CoQ 10, probiotic, vitamin B12, vitamin C, vitamin D3, magnesium glycinate
DVT proph--Eliquis
CODE STATUS: Full code
Original Note:
Today's Communication/Plan
-
Hold home Eliquis per cards and CTS
Repeat head CT tomorrow morning
Continue fall precautions
Assessment / Plan
Assessment / Plan
Mr. Lechuga is a 74 yo male with PMH of CAD s/p SUPRIYA to OM3 12/2014, then CABG 11/[address] Banuelos, persistent A fib (started after recent TAVR on 12/16/2024), chronic HFpEF, moderate/severe s/p TAVR here on 12/16/24 and new since TAVR
medication of Lasix, moderate/severe TR, HTN, hyperlipidemia, and lymphedema here for workup after his second fall since discharge from TAVR 5 days ago and found to have a left-sided occipital condyle fracture. Given his cardiac history and recent
procedure, he was admitted to telemetry for further monitoring with cardiology, CTS, NSG following.� Per review of cardiology's note today, he reported a significant weight loss and poor diet in the last month secondary to tooth extraction in
preparation for his valve replacement. See subjective for full history. Workup thus far has been broad encompassing a vast differential.
#Syncope s/p recent TAVR on 12/16/2024
#Multiple falls of unknown etiology, likely orthostatic
Given his recent cardiac procedure, there is high concern for a cardiac cause for his syncope/falls.� On the differential are conduction abnormalities, valve dysfunction, arrhythmias (possibly RVR episodes with his chronic A-fib), tamponade, and
MT.� EKG in the ED as well as repeat EKG today had no significant changes compared to priors.� There were no acute events on telemetry. Cardiology and cardiothoracic surgery were consulted and recommend holding Eliquis and repeating head CT on
12/23/2024.� Noncardiac possibilities for Mr. Lechuga's syncope can include noncardiac causes such as vasovagal syncope, syncope due to changes in med (recently added Lasix), and electrolyte imbalances.� Of note he was unable to complete
orthostatic vital signs without feeling very weak per nursing. The multiple set of orthostatic vitals taken today are noted above. They do reflect orthostatic etiology. PE, stroke or TIA, and infection were ruled out based on workup.� On
12/22/2024, his friend Ilene was present for rounds and stated that he has been more weak, losing weight, and is likely not taking care of himself well, which could all be contributing to Mr. Lechuga's weakness, lightheadedness, and then resultant
falls.
- Cardiology, CTS following
-- Per recs, hold Eliquis today 12/22/[address] 12/23/2024
-- Hold Lasix 20 mg
- CBC, BMP, troponins, BNP all unremarkable
- UA, TSH, and cortisol unremarkable
- PT consulted, recommending home health
- Repeat echo 12/22/2024 without significant changes from priors
#Nonocclusive thrombus, new
BLE DVU 2 on 12/22/2024 showed nonocclusive thrombus involving the left common femoral vein and the saphenofemoral junction.
- Eliquis 5 mg p.o. twice daily, hold today per Cards & CTS
#New occipital condyle fracture
#Left rib pain
# Right sided forehead hematoma
CT head and CT cervical spine in ED 12/21/2024 were remarkable for a left-sided occipital condyle fracture which is being managed by neurosurgery with a collar and outpatient follow-up plan.� Per neurosurgery, is no need for surgical intervention.
- Neurosurgery consulted
-- Recommend hard collar immobilization follow-up as outpatient in 4 to 6 weeks
- Chest x-ray not concerning for rib fracture
- Acetaminophen 650 mg p.o. every 4 hours as needed for pain control
- Ice for hematoma
#CAD s/p CABG x 3
#Essential hypertension s/p IV hydralazine 10 mg one-time dose 12/21/2024
Blood pressure in the ED was 180s over 110s.� Patient received a one-time drip of IV hydralazine 10 mg.� We will continue home medications and consult cardiology for further recs.� Of note, patient was started on Lasix 20 mg daily at recent
discharge.� We will be holding this given concern for orthostatic hypotension causing falls and syncope.
- Hold Lasix 20 mg daily until orthostatic vitals are back
-Continue home carvedilol 3.125 mg p.o. twice daily
-Continue home aspirin 81 mg daily
-Continue lisinopril 20 mg p.o. daily -hold if systolic blood pressure is less than 100 or heart rate is less than 60
#BPH
- Continue tamsulosin 0.4 mg p.o. daily
#Vitamin deficiency
- Patient placed on low-cholesterol diet
- Holding patient's home supplements of CoQ 10, probiotic, vitamin B12, vitamin C, vitamin D3, magnesium glycinate
CODE STATUS: Full code
Anticipated Discharge: 24 - 48 hours
Subjective/Interval History
-
Date of Service: December 22, 2024
Mr. Lechuga is a 74 yo male with PMH of CAD s/p SUPRIYA to OM3 12/2014, then CABG 11/[address] Banuelos, persistent A fib (was on eliquis but stopped it and restarting today), chronic HFpEF, moderate/severe s/p TAVR here on 12/16/24 and new med of
Lasix, moderate/severe TR, HTN, hyperlipidemia, and lymphedema here for workup after his second fall since discharge from TAVR 5 days ago and found to have a left-sided occipital condyle fracture. Given his cardiac history and recent procedure, he
was admitted to telemetry for further monitoring with cardiology, CTS, and NSG following. See H&P for full history.
- No acute events on telemetry per nursing.
- This morning, he feels 'airheaded' and very fatigued. His friend, Ilene, is bedside and a good historian.
- Eliquis held per CTS for repeat head CT tomorrow morning.
- Per nursing, he has been unable to complete orthostatic vitals due to lightheadedness.
Objective Data
-
Labs:
Laboratory Results
12/22/24
09:24
WBC 11.4 H
Hgb 14.4
Hct 42.5
Plt Count 205 D
Sodium 136
Potassium 4.2
Chloride 106
Carbon Dioxide 22
BUN 20
Creatinine 0.6 L
Glucose 123 H
Calcium 9.5
Vital Signs:
Vital Signs
Temp Pulse Resp BP Pulse Ox
97.7 F 89 14 171/101 97
12/22/24 15:42 12/22/24 15:42 12/22/24 15:42 12/22/24 15:42 12/22/24 15:42
Review of Systems
-
Constitutional: Reports Weight Loss, Fatigue and Weakness
EENT: Reports No Symptoms Reported
Respiratory: Reports No Symptoms
Cardiac: Reports No Symptoms
Abdomen/GI: Reports No Symptoms
Genitourinary: Reports No Symptoms
Musculoskeletal: Reports Muscle Pain
Skin: Reports Other (Bruising at IV sites, left lateral rib cage)
Neuro: Reports Weakness and Lightheadedness
Physical Exam
-
General: Other (Weak appearing, in and out of conversation, sleepy, with Ilene at bedside)
HEENT: Other (In hard collar per neurosurgery, traumatic head from fall with small right sided hematoma on the forehead)
Respiratory: Clear to Auscultation
Cardiac: Irregular Rhythm and Other (A-fib on telemetry)
GI: Soft and Nontender
Musculoskeletal: No Clubbing and No Cyanosis
Skin: Warm, Dry and Other (With bruising s/p fall)
Neuro: AO x 3
Psych: Calm
Data Reviewed
-
Medical Tests (Nuc Med, Echo etc): Discussed with Physician
Labs: Discussed with Physician
[2024-12-23] VITALS (8 sets, daily range): BP systolic 112–170; BP diastolic 10–122; PULSE 65–123; O2SAT 95
[2024-12-23 08:02] LABS: Hematocrit 40.5 % (39.0-52.0); Hemoglobin 13.6 g/dL (13.0-18.0); Mean Corp Hgb Conc. 33.6 g/dL (33.0-37.0); Mean Corpuscular Volume 85.3 fL (80.0-94.0); Nucleated Red Blood Cells % 0 % (-); Platelet Count 192 10^3/uL (130-400); Red Cell Dist. Width 15.0 % (11.5-14.5)
--- NOTE | 2024-12-23 08:08 | W.PN.CD ---
Today's Communication / Plan
-
lasix stopped, liberal PO intake
ambulate with orthostatic VS today
trend tele
resume eliquis if no procedures planned and repeat head CT stable
Impression / Plan
-
74 y/o male (cardiology patient of Dr. Duarte) with HTN, HLD, HFpEF, PAF, CAD s/p CABG, and severe with recent TAVR 12/16/24 returns with fall with possible syncope.
Fall with possible syncope:
-he is poor historian, but thinks he may have been dizzy and passed out versus slip and fall. Injuries have been sustained as noted in detail.
-etiology unclear. Echo without effusion. Tele with AFIB (persistent).
-suspect may be due to orthostatic hypotension
-lasix stopped, liberal PO intake
-ambulate with orthostatic VS today
-trend tele
Neck trauma
-Neuro surgery consulted.
-resume eliquis if no procedures planned and repeat head CT stable
Severe aortic valve stenosis
-S/P #29 Yang ZAHIRA Resilia TAVR via right transfemoral approach on 12/16/2024.
-Transient LBBB post-op, as noted. Tele currently AFIB - rates okay.
-Eliquis held pending repeat head CT per CTS
-Echo 12/22/24: EF 55-60%. Enlarged right ventricular size. Normal right ventricular systolic function. Well seated #29 Zahira S3 Ultra TAVR. Peak/mean gradients across the aortic valve are 9/4 mmHg. No aortic regurgitation is seen. Moderate
tricuspid regurgitation. Estimated pulmonary artery pressure of 20-25 mmHg.
CAD:
-hx CABG
-stop ASA since on eliquis for A fib
Persistent atrial fibrillation:
-continue Coreg
-Eliquis placed on hold by CT surgery with injuries as noted
HTN:
-BP's elevated, but technically orthostatic so will not adjust meds upward at this time
-continue current meds for now, keep HOB elevated
HFpEF, chronic, stable:
-stop lasix; make prn
Physical Exam
Vital Signs/Labs
Vital Signs
Temp Pulse Resp BP Pulse Ox
98.2 F 90 14 157/99 96
12/23/24 03:32 12/23/24 03:32 12/23/24 03:32 12/23/24 03:32 12/23/24 03:32
12/22/24 12/23/24 12/24/24
06:59 06:59 06:59
Actual Weight 90.322 kg
12/23/24 07:23
Magnesium 2.0 mg/dl (1.6-2.3) 12/22/24 09:24
TSH 2.32 uIU/ml (0.47-4.68) 12/22/24 09:24
12/22/24
09:24
Ljm-F-Dzaytusjnmu Pept 5610
LAB Results
12/21/24 12/22/24 12/22/24
20:28 02:05 09:24
Troponin I 0.032 0.032 0.019 D
12/22/24
13:53
Troponin I 0.016
Physical Exam
Constitutional: No acute distress
EENT: Moist mucous membranes
Cardiovascular: Pedal edema is absent, JVD pressure is normal, Systolic murmur absent and Rhythm/rate is irregular
Respiratory: Respiratory effort normal and Lungs clear to auscul.
Neuro/Psych: Alert
Data Reviewed
-
Date of Service: December 23, 2024
EKG: Other (Tele: A fib )
Labs: Labs Reviewed by me
[2024-12-23 09:02] LABS: Blood Urea Nitrogen 25 mg/dl (9-20); Calcium 9.3 mg/dl (8.4-10.2); Carbon Dioxide 23 mmol/L (22-30); Chloride 105 mmol/L (98-107); Estimated Creatinine Clearance 112 ml/min; Glucose 102 mg/dl (70-99); Potassium 3.8 mmol/L (3.5-5.1); Sodium 135 mmol/L (135-145); eGFR > 60.00
--- NOTE | 2024-12-23 09:37 | PN.CDI ---
Addendum entered and electronically signed by Santa West MD 12/23/24 19:44:
documentation complete
Original Note:
CDI
- -
CDI:
Physician Documentation Request
Admit Date: 12/21/24 16:27
Dear Doctor Jaden,
Clinical Indicators:
Patient admitted with syncope.
12/22 PN, 'Essential hypertension s/p IV hydralazine 10 mg one-time dose 12/21/2024'
BP trend:
12/21/24
10:00 12/21/24
11:07 12/21/24
12:00
Blood pressure 185/109 185/102 184/106
12/21/24
14:00 12/21/24
19:30
Blood pressure 181/97 186/97
Please clarify which, if any of the following, is a more accurate diagnosis reflecting the type and acuity of the documented hypertension:
Hypertensive Urgency - B/P is severely elevated (systolic > or = to 180 or diastolic > or = to 110) but there is no associated organ damage. Symptoms may include: headache, shortness of breath, nosebleeds, severe anxiety. Treatment usually consists
of addition to or adjusting of oral medications and does not generally necessitate hospitalization.
Essential primary hypertension only
Other (please specify)
Use of terms such as suspected, likely, concern for, or probable (associated with a specific diagnosis that is being evaluated, monitored, or treated as if it exists) are acceptable and can be coded in the inpatient setting, when documented at the
time of discharge.
Thank you,
JORJE Wei RN
CDI Specialist
available via tiger text
Please use your independent medical judgment in providing your response.
--- NOTE | 2024-12-23 09:41 | CON.MD ---
Documented by User: Mandi Cosby MD, Resident 12/23/24 13:48
Consultation - Medical
-
Referring Provider: Dr. West
Chief Complaint: Posterior skull pain (left occipital condylar fracture) after fall due to lightheadedness after recent TAVR
History of Present Illness:
Mr. 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
who presented to the ED 12/21/24 after a fall associated with dizziness, resulting in a posterior skull contusion.
In his TAVR postop course, he was noted to have a near syncope event postop day 2 (12/18). He was discharged on 12/18. He returned to the ED at 2 PM the same day after having a syncopal event at home and a fall. In the ED, CT surgery and cardiology
were in agreement that he can be managed outpatient. Interestingly, the patient does not recall this event nor visit to the ED. It was also noted that his Echo on 12/17/2024 showed an EF of 55 to 60% and the TAVR was well-seated. Of note, he was
found to have a new left bundle branch block transiently after TAVR, but it resolved and he never needed pacing. His medications at time of discharge from his TAVR included Eliquis (new), Coreg, Zetia, Lasix (new), Zestril, Flomax. He has been
taking his medications routinely since discharge.
Mr. Lechuga says this fall was different than his previous falls. He states that he slipped on something in his home while washing breakfast dishes around 7:30 AM. He states he fell backwards and hit the back of his head and his left side on the
ground. He then got himself up and went and laid in bed, which is when he felt some pain in his neck and on his left side and decided to come to the ED. He denies lightheadedness, dizziness, vision changes, blacking out, feeling sweaty or having
chills prior to the fall, chest pain, diet changes, and shortness of breath. He also reports some urinary frequency today. Of note, he lives alone and states that his friend Ilene Lewis would be able to provide history for him. She is a primary
contact in his chart.
Past Medical History: Aortic stenosis, Asthma, CAD, HTN, Hypercholesterolemia and [place] (Stent placement)
Procedure History: TAVR (~01/16/25), Tonsillectomy
Family History: Diabetes (mother)
Social History:
Functional Level Premorbidly: Independent with most activities. Receives assistance for homemaking. Walks with cane
Functional Level Currently:
Bed mobility: needed supervision for supine to sit, sit to supine, and scooting to left edge of bed
Transfer: stood without assistance, stood for 2 minutes for BP measurement. Reports dizziness upon standing that did not resolve. BP dropped so deferred transfer to chair
Ambulation: deferred due to symptomatic BP drop when standing
Patient and family goals is to be discharged home. PT anticipates discharge home with home therapy once medical status is available.
Currently requires supervision to complete simple ADLs and functional transfers. Positive orthostasis/symptomatic.
Toileting: supervision to use urinal
LB dressing: supervision to reach feet to adjust socks
BUE AROM/Strength: WFL
Assist of 1
Tobacco: Former smoker
Alcohol: Occasional
Drug: Marijuana
Lives with: alone
24-hour assistance available: potentially friend Ilene Lewis. Nearest family is brother in [place]
Number of floors: 1
# steps to enter: lives on 4th floor with elevator access
# steps to second floor: lives on 4th floor with elevator access
Potential First floor set up: bedroom and bathroom
Driving: no
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
Allergies
Allergy/AdvReac Type Severity Reaction Status Date / Time
No Known Allergies Allergy Verified 12/18/24 14:36
Review of Systems:
Constitutional: (x) Normal _
Eye: (x) Normal _
Ear/Nose/Throat: (x) Normal _
Respiratory: (x) Normal _
Cardiovascular: (x) Normal _
Gastrointestinal: (x) Normal _
Genitourinary: (x) Normal _
Musculoskeletal: 8/10 pain at posterior skull
Integumentary: (x) Normal _
Neurologic: (x) Normal _
Psychiatric: (x) Normal _
Endocrine: (x) Normal _
Hematologic/Lymphatic: (x) Normal _
Allergic/Immunologic: (x) Normal _
Medications:
�Medication �Instructions �Recorded �Confirmed �Last Taken �Type
ezetimibe 10 mg tablet 10 mg PO DAILY High cholesterol 05/09/21 12/21/24 12/20/24 History
apixaban 5 mg tablet (Eliquis) 5 mg PO BID Blood clot 12/16/24 12/21/24 12/20/24 Rx
prevention/tx #60 tabs
aspirin 81 mg tablet 81 mg PO DAILY Blood clot 12/16/24 12/21/24 12/20/24 Rx
prevention/tx #0 tabs
carvedilol 3.125 mg tablet 3.125 mg PO BID Heart 12/16/24 12/21/24 12/20/24 Rx
disease/condition #0 tabs
lisinopril 20 mg tablet 20 mg PO DAILY Blood pressure #0 12/16/24 12/21/24 12/20/24 Rx
tabs
tamsulosin 0.4 mg capsule 0.4 mg PO DAILY BPH #0 caps 12/16/24 12/21/24 12/20/24 Rx
acetaminophen 325 mg tablet 650 mg (2 x 325 mg) PO Q4HPRN PRN 12/17/24 12/21/24 12/21/24 Rx
HERNANDEZ, mild pain, or fever >101F #0
tabs
Lactobac no.2-Bifidobac no.1-S. 1 cap PO DAILY Gastrointestinal 12/21/24 12/21/24 Unknown History
thermo 112.5 billion cell capsule Issue
(Visbiome)
ascorbic acid (vitamin C) 500 mg 500 mg PO DAILY Supplement 12/21/24 12/21/24 Unknown History
tablet (Vitamin C)
cholecalciferol (vitamin D3) 25 25 mcg PO DAILY Supplement 12/21/24 12/21/24 Unknown History
mcg (1,000 unit) tablet (Vitamin
D3)
coQ10 (ubiquinol) 100 mg capsule 100 mg PO DAILY Supplement 12/21/24 12/21/24 Unknown History
cyanocobalamin (vitamin B-12) 1,000 mcg PO DAILY Supplement 12/21/24 12/21/24 Unknown History
1,000 mcg tablet
furosemide 40 mg tablet (Lasix) 40 mg PO DAILY Fluid 12/21/24 12/21/24 12/20/24 History
Retention/Swelling
Vitals:
Vital Signs
Temp Pulse Resp BP Pulse Ox
98.1 F 87 16 165/98 97
12/23/24 09:03 12/23/24 09:03 12/23/24 09:03 12/23/24 09:03 12/23/24 09:03
Physical Exam:
General Appearance/Observation: Well-developed, cachectic individual in no apparent distress. Wearing c-collar
Pain/Comfort Assessment: pain to light palpation at occiput
Mood/Affect: Appropriate
Eyes: Conjunctiva/Lids: normal ��� Pupils: pupils equal round and reactive to light and Accommodation
Ears/Nose/Throat: oral mucosa moist,� throat clear.������������ Lips/Teeth/Gums: normal
Neck: exam deferred due to immobilization/c-collar
Cardiovascular: Heart: regular, no murmur
Respiratory: Respiratory Effort/Chest Expansion: normal ������� Auscultation: Clear to auscultation bilaterally
Gastrointestinal: abdomen not tender, no distension, normal abdominal bowel sounds
Genitourinary: No Varela
Rectal Exam: Deferred
Extremities: Edema: None Cyanosis: None Trophic changes: None
Neurology Exam:
Orientation: Alert, Oriented to self, Time, Place
Memory: Intact for immediate medical concerns
Higher cortical function
Repetition: Intact
Comprehension: Intact
Two step command: Intact
Naming: Intact
Cranial Nerves:
�� CNII: Pupillary light reflex: Intact��� Visual Field: Intact
�� CN III, IV, : Extraocular muscles: Intact
�� CN V: Facial Sensation at Forehead: Intact, Maxilla: Intact, Mandible: Intact
�� CN VII: Facial movement: Symmetric
�� CN VIII: Hearing: Normal
�� CN IX/X: Speech & swallow: Normal, Position of Uvula: Midline
�� CN XI: Shoulder shrug: Symmetric
�� CN XII: Tongue protrusion: Midline
Sensory:
�� Light touch: Intact in bilateral upper and lower extremities
Reflexes:
�� Biceps: 2+ bilaterally
�� Patellar: 2+ bilaterally
�� Achilles: 2+ bilaterally
�� Babinski: Neutral bilaterally
�� Clonus: None
�� Don: Negative bilaterally
Cerebellar: Dysmetria/Ataxia: None
Musculoskeletal:
Motor: (Manual muscle scale 0-5)
Muscle SA EF WE EE FF FA HF KE DF EHL PF
Right� 5 5 5 5 5 5 5 5 5 5 5
Left 5 5 5 5 5 5 5 5 5 5 5
Tone: Normal in all extremities
Range of Motion: Passively within normal limits in all extremities
Lab Results
Laboratory Data
12/23/24 07:23
12/23/24 07:23
Total Bilirubin 1.2 mg/dl (0.2-1.3) 12/21/24 11:27
AST 25 U/L (17-59) 12/21/24 11:27
ALT 18 U/L (0-50) 12/21/24 11:27
Alkaline Phosphatase 74 U/L (38-126) 12/21/24 11:27
Total Protein 6.7 g/dl (6.3-8.2) 12/21/24 11:27
Albumin 3.9 g/dl (3.5-5.0) 12/21/24 11:27
�
Diagnostic Results: as per HPI
Cervical spine CT 12/21: IMPRESSION:
There is a lucency through the medial aspect of the left occipital condyle tearing for fracture.
There is slight straightening of the cervical spine with multilevel severe degenerative changes.
Head CT 12/21: IMPRESSION:
No acute intracranial abnormality noted. 5 mm right frontotemporal scalp hematoma.
Moderate atrophy most pronounced in the anterior temporal lobes.
CXR 12/21: IMPRESSION:
No radiographically demonstrable acute rib fracture.
Probable old healed fracture of the anterolateral right seventh rib.
No pneumothorax. No radiographically demonstrable pleural effusion.
Left diaphragmatic subpleural lucency possibly related to bowel loop. However, clinical correlation would be necessary to exclude the possibility of pneumoperitoneum.
Peripheral vasc u/s 12/22:
IMPRESSION: Examination is positive for nonocclusive thrombus involving the left common femoral vein and the saphenofemoral junction.
Head CT 12/23: IMPRESSION:
No acute intracranial abnormality noted.
Assessment
Mr. Lechuga is a 74 yo male with PMH of CAD s/p stent and CABG 11/2020, persistent A fib (on eliquis), chronic HFpEF, moderate/severe s/p TAVR here on 12/16/24 and new med of Lasix, moderate/severe TR, HTN, hyperlipidemia, and lymphedema here for
workup after his second fall since discharge from TAVR 5 days ago and found to have a left-sided occipital condyle fracture. Given his cardiac history and recent procedure, he was admitted to telemetry for further monitoring with cardiology, CTS,
and NSG following.
Plan
PM&R PT/OT to increase independence with ADLs, improve balance, coordination, endurance, strength, mobility, community reintegration, decreased burden of care on others and family education.
Falls: Due to orthostatic hypotension but could be multifactorial.
- Encourage PO intake
- Thigh-high TEDs and/or midodrine if other measures to control orthostasis are not adequate.
Fracture: Has new fracture on left occipital condyle. Current pain is related to this frature. No decreased light touch in lower extremities, lower extremity strength is good.� Does not appear to be a neurologic concern in the extremities. Patient
decided headache, changes in vision, difficulty with concentration. Endorsed memory difficulties prior to falls.
-�������� Continue Tylenol
-�������� Try ice to the area to help break up muscle spasm and decrease inflammation.
HTN: hold due to orthostasis: lisinopril 20 mg PO daily & furosemide 40 mg PO daily
HLD: continue ezetimibe
Coronary artery disease : continue Aspirin 81 mg PO daily, carvedilol 3.125 mg PO BID
Atrial fibrillation:� Continue apixaban 5 mg PO BID and carvedilol 3.125 mg PO BID��������������������������������������
CHF: EF 68%, continue carvedilol 3.125 mg PO BID, monitor fluid status
������
Nonocclusive lower extremity DVT: Continue apixaban 5 mg PO BID
Psych: Psychology consult.� Monitor mood, adjust medications as needed.
Skin: monitor for pressure sores/rashes/lesions.
Pain: acetaminophen as needed.
Bowel: Colace and Senna, PRN bisacodyl.
Bladder: Time void, PVRs, PRN straight cath. Continue tamsulosin 0.4 mg PO daily
GI Prophylaxis: Pantoprazole
DVT Prophylaxis: Continue apixaban
Pulmonary: Incentive spirometry
Safety: Continue to reinforce assistance with all transfers.
Code Status:� Full code
Dispo (date/plan/equipment needs): Anticipate home with home care.� Social history reviewed.
Functional and Medical Goals: Modified Independent with ADL�s, ambulation, transfers
SUMMARY
Things that must be addressed in Hospital prior to discharge:
1.��� Please consult PT/OT.
2.��� Please consult speech.
3.��� Patient must be stable on oral pain medications.
4.��� Only Pigtail chest tubes are possible.
5.��� Blood pressure must be less than 180 systolic and 100 diastolic for 24 hours before being stable for transfer to SNF/acute rehab.
6.��� Please address orthostasis with holding antihypertensives and optionally trying thigh-high TEDs and midodrine.
7.��� Please continue c-collar per NSGY.
8.��� Please continue Apixaban for DVT ppx, afib.
Discharge Destination: Home
Summary of recommendations:
- Discharge Destination: We anticipate Mr. Lechuga can be discharged home with home PT and OT, but the determination will be made after orthostasis is controlled.
- May try thigh-high TEDs and midodrine for orthostasis if not controlled adequately via other measures
Will continue to follow patient.
Thank you for allowing me to care for your patient. Please contact me with any questions or concerns.
This note was dictated using a voice recognition system. 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 If you believe there are any discrepancies, please notify our office.

Documented by User: Shimon Bravo MD 12/23/24 15:19
Consultation - Medical
-
Referring Provider: Dr. West
Chief Complaint: Posterior skull pain (left occipital condylar fracture) after fall due to lightheadedness after recent TAVR
History of Present Illness:
Mr. 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
who presented to the ED 12/21/24 after a fall associated with dizziness, resulting in a posterior skull contusion.
In his TAVR postop course, he was noted to have a near syncope event postop day 2 (12/18). He was discharged on 12/18. He returned to the ED at 2 PM the same day after having a syncopal event at home and a fall. In the ED, CT surgery and cardiology
were in agreement that he can be managed outpatient. Interestingly, the patient does not recall this event nor visit to the ED. It was also noted that his Echo on 12/17/2024 showed an EF of 55 to 60% and the TAVR was well-seated. Of note, he was
found to have a new left bundle branch block transiently after TAVR, but it resolved and he never needed pacing. His medications at time of discharge from his TAVR included Eliquis (new), Coreg, Zetia, Lasix (new), Zestril, Flomax. He has been
taking his medications routinely since discharge.
Mr. Lechuga says this fall was different than his previous falls. He states that he slipped on something in his home while washing breakfast dishes around 7:30 AM. He states he fell backwards and hit the back of his head and his left side on the
ground. He then got himself up and went and laid in bed, which is when he felt some pain in his neck and on his left side and decided to come to the ED. He denies lightheadedness, dizziness, vision changes, blacking out, feeling sweaty or having
chills prior to the fall, chest pain, diet changes, and shortness of breath. He also reports some urinary frequency today. Of note, he lives alone and states that his friend Ilene Lewis would be able to provide history for him. She is a primary
contact in his chart.
Past Medical History: Aortic stenosis, Asthma, CAD, HTN, Hypercholesterolemia and [place] (Stent placement)
Procedure History: TAVR (~01/16/25), Tonsillectomy
Family History: Diabetes (mother)
Social History:
Functional Level Premorbidly: Independent with most activities. Receives assistance for homemaking. Walks with cane
Functional Level Currently: Spoke to therapist Oneyda Jarrell. Patient having worse time today and is at min assist level for functional tasks.
Tobacco: Former smoker
Alcohol: Occasional
Drug: Marijuana
Lives with: alone
24-hour assistance available: potentially friend Ilene Lewis. Nearest family is brother in [place]
Number of floors: 1
# steps to enter: lives on 4th floor with elevator access
# steps to second floor: lives on 4th floor with elevator access
Potential First floor set up: bedroom and bathroom
Driving: no
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
Allergies
Allergy/AdvReac Type Severity Reaction Status Date / Time
No Known Allergies Allergy Verified 12/18/24 14:36
Review of Systems:
Constitutional: (x) abNormal _fatigue
Eye: (x) Normal _
Ear/Nose/Throat: (x) Normal _
Respiratory: (x) Normal _
Cardiovascular: (x) abNormal _recent TAVR
Gastrointestinal: (x) Normal _
Genitourinary: (x) Normal _
Musculoskeletal: abnormal_ 8/10 pain at posterior skull
Integumentary: (x) Normal _
Neurologic: (x) abNormal _has had some numbness tingling below the knees at times in the past, not currently
Psychiatric: (x) Normal _
Endocrine: (x) Normal _
Hematologic/Lymphatic: (x) Normal _
Allergic/Immunologic: (x) Normal _
Medications:
�Medication �Instructions �Recorded �Confirmed �Last Taken �Type
ezetimibe 10 mg tablet 10 mg PO DAILY High cholesterol 05/09/21 12/21/24 12/20/24 History
apixaban 5 mg tablet (Eliquis) 5 mg PO BID Blood clot 12/16/24 12/21/24 12/20/24 Rx
prevention/tx #60 tabs
aspirin 81 mg tablet 81 mg PO DAILY Blood clot 12/16/24 12/21/24 12/20/24 Rx
prevention/tx #0 tabs
carvedilol 3.125 mg tablet 3.125 mg PO BID Heart 12/16/24 12/21/24 12/20/24 Rx
disease/condition #0 tabs
lisinopril 20 mg tablet 20 mg PO DAILY Blood pressure #0 12/16/24 12/21/24 12/20/24 Rx
tabs
tamsulosin 0.4 mg capsule 0.4 mg PO DAILY BPH #0 caps 12/16/24 12/21/24 12/20/24 Rx
acetaminophen 325 mg tablet 650 mg (2 x 325 mg) PO Q4HPRN PRN 12/17/24 12/21/24 12/21/24 Rx
HERNANDEZ, mild pain, or fever >101F #0
tabs
Lactobac no.2-Bifidobac no.1-S. 1 cap PO DAILY Gastrointestinal 12/21/24 12/21/24 Unknown History
thermo 112.5 billion cell capsule Issue
(Visbiome)
ascorbic acid (vitamin C) 500 mg 500 mg PO DAILY Supplement 12/21/24 12/21/24 Unknown History
tablet (Vitamin C)
cholecalciferol (vitamin D3) 25 25 mcg PO DAILY Supplement 12/21/24 12/21/24 Unknown History
mcg (1,000 unit) tablet (Vitamin
D3)
coQ10 (ubiquinol) 100 mg capsule 100 mg PO DAILY Supplement 12/21/24 12/21/24 Unknown History
cyanocobalamin (vitamin B-12) 1,000 mcg PO DAILY Supplement 12/21/24 12/21/24 Unknown History
1,000 mcg tablet
furosemide 40 mg tablet (Lasix) 40 mg PO DAILY Fluid 12/21/24 12/21/24 12/20/24 History
Retention/Swelling
Vitals:
Vital Signs
Temp Pulse Resp BP Pulse Ox
98.1 F 87 16 165/98 97
12/23/24 09:03 12/23/24 09:03 12/23/24 09:03 12/23/24 09:03 12/23/24 09:03
Physical Exam:
General Appearance/Observation: Well-developed, thin male in no apparent distress. Wearing c-collar
Pain/Comfort Assessment: pain to light palpation at occiput
Mood/Affect: Appropriate
Integumentary: Has mild bruising over right forehead
Eyes: Conjunctiva/Lids: normal ��� Pupils: pupils equal round and reactive to light and Accommodation
Ears/Nose/Throat: oral mucosa moist,� throat clear.������������ Lips/Teeth/Gums: normal
Neck: Limited exam with immobilization/Mcgrath J cervical-collar. Collar was on loose and crooked. Reset the collar with decreased pain reported by patient.
Cardiovascular: Heart: regular, no murmur
Respiratory: Respiratory Effort/Chest Expansion: normal ������� Auscultation: Clear to auscultation bilaterally
Gastrointestinal: abdomen not tender, no distension, normal abdominal bowel sounds
Genitourinary: No Varela
Rectal Exam: Deferred
Extremities: Edema: Mild right lower extremity edema cyanosis: None Trophic changes: None
Neurology Exam:
Orientation: Alert, Oriented to self, Time, Place
Memory: Intact for immediate medical concerns
Repetition: Intact
Comprehension: Intact
Two step command: Intact
Cranial Nerves:
�� CNII: Pupillary light reflex: Intact��� Visual Field: Intact
�� CN III, IV, : Extraocular muscles: Intact
�� CN V: Facial Sensation at Forehead: Intact, Maxilla: Intact, Mandible: Intact
�� CN VII: Facial movement: Symmetric
�� CN VIII: Hearing: Normal
�� CN IX/X: Speech & swallow: Normal, Position of Uvula: Midline
�� CN XI: Shoulder shrug: Symmetric
�� CN XII: Tongue protrusion: Midline
Sensory:
�� Light touch: Intact in bilateral upper and lower extremities
Reflexes:
�� Biceps: 2+ bilaterally
�� Brachioradialis: 2+ bilaterally
�� Triceps: 2+ bilaterally
�� Achilles: 2+ bilaterally
�� Babinski: Neutral bilaterally
�� Clonus: None
�� Don: Negative bilaterally
Cerebellar: Dysmetria/Ataxia: None
Musculoskeletal: Motor: (Manual muscle scale 0-5)
Muscle SA EF WE EE FF FA HF KE DF EHL PF
Right� 5 5 5 5 5 5 5 5 5 5 5
Left 5 5 5 5 5 5 5 5 5 5 5
Tone: Normal in all extremities
Range of Motion: Passively within normal limits in all extremities
Lab Results
Laboratory Data
12/23/24 07:23
12/23/24 07:23
Total Bilirubin 1.2 mg/dl (0.2-1.3) 12/21/24 11:27
AST 25 U/L (17-59) 12/21/24 11:27
ALT 18 U/L (0-50) 12/21/24 11:27
Alkaline Phosphatase 74 U/L (38-126) 12/21/24 11:27
Total Protein 6.7 g/dl (6.3-8.2) 12/21/24 11:27
Albumin 3.9 g/dl (3.5-5.0) 12/21/24 11:27
�
Diagnostic Results: as per HPI
Cervical spine CT 12/21: IMPRESSION:
There is a lucency through the medial aspect of the left occipital condyle tearing for fracture.
There is slight straightening of the cervical spine with multilevel severe degenerative changes.
Head CT 12/21: IMPRESSION:
No acute intracranial abnormality noted. 5 mm right frontotemporal scalp hematoma.
Moderate atrophy most pronounced in the anterior temporal lobes.
CXR 12/21: IMPRESSION:
No radiographically demonstrable acute rib fracture.
Probable old healed fracture of the anterolateral right seventh rib.
No pneumothorax. No radiographically demonstrable pleural effusion.
Left diaphragmatic subpleural lucency possibly related to bowel loop. However, clinical correlation would be necessary to exclude the possibility of pneumoperitoneum.
Peripheral vasc u/s 12/22:
IMPRESSION: Examination is positive for nonocclusive thrombus involving the left common femoral vein and the saphenofemoral junction.
Head CT 12/23: IMPRESSION:
No acute intracranial abnormality noted.
Assessment
74 y/o M PMH (CAD s/p stent and CABG 11/2020, persistent A fib (on eliquis), chronic HFpEF, moderate/severe s/p TAVR here on 12/16/24 and new med of Lasix, moderate/severe TR, HTN, hyperlipidemia, and lymphedema) with second fall since discharge
from TAVR 5 days ago and found to have a left-sided occipital condyle fracture possibly secondary to orthostasis.
Plan
PM&R PT/OT to increase independence with ADLs, improve balance, coordination, endurance, strength, mobility, community reintegration, decreased burden of care on others and family education.
Falls: Appear to be secondary to orthostatic hypotension but could be multifactorial.
- orthostatic hypotension causing syncope and falls:
-Changing tamsulosin to at night because of orthostatic side effects, worse of a problem during the day.
- Must maintain hydration.� IV fluid as necessary.
- Agree with holding diuretics for now.
- Could consider thigh-high teds, but patient has DVT.
- If no improvement after holding diuretics consider midodrine 5 mg 0600 and 1200 and titrating up to 10 mg.� Generally hold midodrine in the evening as it can make supine hypertension worse.
- Might benefit from amlodipine at approximately 1800.� Would need to be careful with getting up to go to the bathroom at night without midodrine.
- Avoid fludrocortisone with CHF history
- Can keep head of bed up at 30 degrees or higher is much as possible to prevent the increasing of blood pressure when lying flat and worsening drop the more he comes up from supine position.
- Suggest being up out of bed is much as possible throughout the day.�
- Increase leg and arm exercises to help with increasing blood pressure particularly prior to sitting or standing up.
Left occipital condyle fracture: Continues to have pain. No decreased light touch in lower extremities, lower extremity strength is good.� No acute neurologic concern in the extremities. Patient declines headache, changes in vision, difficulty with
concentration. Endorsed memory difficulties prior to falls. No signs of concussion.
-�������� Tylenol
-�������� Try ice/lidocaine patch to the area to help break up muscle spasm and decrease inflammation.
HTN: lisinopril 20 mg PO daily and carvedilol 3.125 mg twice daily. Holding furosemide 40 mg PO daily
HLD: ezetimibe
Coronary artery disease: Aspirin 81 mg PO daily, carvedilol 3.125 mg PO BID, Zetia
Atrial fibrillation:� apixaban 5 mg PO BID and carvedilol 3.125 mg PO BID��������������������������������������
CHF: EF 68%, carvedilol 3.125 mg PO BID. Lisinopril and Lasix monitor fluid status
�
Nonocclusive lower extremity DVT: Apixaban 5 mg PO BID, has been on Eliquis recently. Spoke with Dr. West not likely failure of Eliquis and started on it last week.
Psych: Psychology consult.� Monitor mood, adjust medications as needed.
Skin: monitor for pressure sores/rashes/lesions.
Pain: acetaminophen as needed.
Bowel: Colace and Senna, PRN bisacodyl.
Bladder: Time void, PVRs, PRN straight cath. Continue tamsulosin 0.4 mg PO but changed to at night because of side effects of orthostasis.
GI Prophylaxis: Pantoprazole
DVT Prophylaxis: Continue apixaban
Pulmonary: Incentive spirometry
Safety: Continue to reinforce assistance with all transfers.
Code Status:� Full code
Dispo (date/plan/equipment needs): Anticipate home with home care.� Social history reviewed.
Functional and Medical Goals: Modified Independent with ADL�s, ambulation, transfers
Discharge Destination: - Based on updated therapy functional status patient will benefit most from being in a [facility] facility. He has medical and functional needs that need to be improved to help prevent continued falls and possible
injury. He will need adjustment of his medications and monitoring of his cardiovascular status while doing this.
Attending Statement:
I saw and examined the patient today. Reviewed care plan with patient, therapy, attending physician, and resident. I agree with the above subjective and physical exam, and plan as documented by Dr. Cosby with my physical exam and plan adjustments as
noted above. A total of 80 minutes were spent with the patient preparing for the evaluation, obtaining history, performing examination and evaluation, counseling, data review, case management, care coordination, order dispatcher chief, and EMR documentation.
Summary of recommendations:
- Discharge Destination: [facility] facility
- Orthostatic hypotension causing syncope and falls:
- Changed tamsulosin to at night because of orthostatic side effects
- Must maintain hydration.� IV fluid as necessary.
- Agree with holding diuretics for now.
- Could consider thigh-high teds, but patient has DVT.
- If no improvement after holding diuretics consider midodrine 5 mg 0600 and 1200 and titrating up to 10 mg.� Generally hold midodrine in the evening as it can make supine hypertension worse.
- Might benefit from taking amlodipine or nifedipine at approximately 1800.� Would need to be careful with getting up to go to the bathroom at night without midodrine.
- Avoid fludrocortisone with CHF history
- Suggest being up out of bed is much as possible throughout the day.�
- Increase leg and arm exercises to help with increasing blood pressure particularly prior to sitting or standing up.
Left occipital condyle fracture: �����Tylenol/ice/lidocaine patch to the area to help break up muscle spasm and decrease inflammation.
Will continue to follow patient.
Thank you for allowing me to care for your patient. Please contact me with any questions or concerns.
Consultation
-
Date/Time Consultation Performed: 12/23/24
Requesting Provider: Dr. Santa West
Performing Provider: Dr. Cosby/Dr. Shimon Bravo
Reason for Consultation: Debility
[2024-12-23] MEDS: FLOMAX 0.4 MG PO (10:04)
[2024-12-23] MEDS: ZETIA 10 MG PO (10:04)
[2024-12-23] MEDS: ZESTRIL 20 MG PO (10:04)
[2024-12-23] MEDS: COREG 3.125 MG PO ×2 (10:05→20:43)
[2024-12-23] MEDS: TYLENOL 650 MG PO ×2 (10:10→17:36)
--- NOTE | 2024-12-23 10:36 | PTOTSP ---
Speech Therapy Evaluation:
Pt with acute on chronic risk factors of dysphagia (extensive cardiac hx, recent TAVR, cognitive deficits). At bedside, oral phase impacted by dentition. Pt with minimal teeth in oral cavity, resulting in decreased breakdown and bolus formation of
solids, which was mitigated with softer PO trials. No overt s/sx of aspiration across trials. Risk of development of adverse event from aspiration increased given poor oral hygiene.
Recommend:
1. Diet downgrade to IDDSI Level 6 (soft and bite sized solids); continue thin liquids
2. Medications as tolerated
3. General aspiration precautions
4. Oral care 3x/daily
5. SANITATION TANK WASHER to follow to monitor diet tolerance s/p diet downgrade, likely brief
--- NOTE | 2024-12-23 11:06 | W.PN.HOSP.TC ---
Addendum entered and electronically signed by Santa West MD 12/24/24 19:14:
LATE ENTRY: I did see the patient 12/23
I saw and evaluated the patient independently. I reviewed the resident�s note and agree with findings and plan as documented by Dr. Stanley.
GENERAL: well developed, well nourished, male in no apparent distress
HEENT: NC--trauma to right forehead--hard cervical collar in place
HEART: irreg irreg
LUNGS : clear to auscultation bilaterally
ABDOM: soft, nontender, nondistended, + bowel sounds
EXT: no cyanosis, clubbing--3+ pitting edema right LE
NEUROLOGIC: grossly intact but despite being oriented and answering name, place, year, president correctly, pt seems to not know who his doctors are, what meds he takes, etc--poor historian
Syncope x 2 after recent TAVR placement--resulting in traumatic mechanical fall--had near syncope day of discharge from and went to ED later in day for same (pt does not remember)--etiology most likely orthostatic hypotension from intolerance to
new meds post TAVR --apprec cards, CT surgery-- orthostatics positive, may need midodrine--PT/OT-- TSH & cortisol WNL--stopped diuretics--cont Eliquis for now--PT--no fluid restriction
New occipital condyle fracture/Left rib pain/Right sided forehead hematoma--all from fall--CT head and CT cervical spine in ED 12/21/2024 were remarkable for a left-sided occipital condyle fracture which is being managed by neurosurgery with a collar
and outpatient follow-up plan. Per neurosurgery, is no need for surgical intervention-- Recommended hard collar immobilization follow-up as outpatient in 4 to 6 weeks-- CXR and rib x-rays show no fractures
chronic afib/flutter--cont coreg and Eliquis
HLD--cont zetia--check lipid panel
Essential hypertension--BP running high but aggressive treatment limited by orthostasis-- IV hydralazine-cont home meds with parameters, changed lisinopril to HS-carvedilol/asa
BPH--most likely-- Continue tamsulosin for now but can contribute to hypotension--transitioned to night
Vitamin deficiency supplements- Patient placed on low-cholesterol diet-- Holding patient's home supplements of CoQ 10, probiotic, vitamin B12, vitamin C, vitamin D3, magnesium glycinate
DVT proph--Eliquis
CODE STATUS: Full code
Original Note:
Today's Communication/Plan
-
Follow-up COIN MACHINE SUPERVISOR, diet, PT/OT, physiatry consults
Follow-up [employer] equipment request for hard collar
Encourage p.o. intake on new soft, bite-size, thin liquid diet
DC'd aspirin 81 mg per cardiology, restarted Eliquis 5 mg p.o. twice daily given normal repeat head CT today
Assessment / Plan
Assessment / Plan
Juan A is a 74 yo male with PMH of CAD s/p SUPRIYA to OM3 12/2014, then CABG 11/[address] Banuelos, persistent A fib (started after recent TAVR on 12/16/2024), chronic HFpEF, moderate/severe s/p TAVR here on 12/16/24 and new since TAVR medication of
Lasix, moderate/severe TR, HTN, hyperlipidemia, and lymphedema here for workup after his second fall since discharge from TAVR and found to have a left-sided occipital condyle fracture. Given his cardiac history and recent procedure, he was admitted
to telemetry for further monitoring with cardiology, CTS, NSG following.� Per review of cardiology's note, he reported a significant weight loss and poor diet in the last month secondary to tooth extraction in preparation for his valve replacement.
When asked, Juan A reconfirmed this. COIN MACHINE SUPERVISOR and nutrition were consulted for further recs. COIN MACHINE SUPERVISOR recommended soft, bite-size, thin liquid diet which she was started on on 12/23/2024. Repeat head CT on 12/23/2024 was negative for any acute intracranial
abnormality. Given his weakness and low appetite, physiatry was consulted along with PT and OT. See subjective for full history. Workup initially encompassed a broad differential, however now favors a combination of etiologies most likely poor
nutrition due to tooth extraction, new medications lowering blood pressure (Lasix), dehydration, and orthostatic changes.
#Syncope s/p recent TAVR on 12/16/2024
#Multiple falls of unknown etiology, likely orthostatic
Given his recent cardiac procedure, there is high concern for a cardiac cause for his syncope/falls.� On the differential are conduction abnormalities, valve dysfunction, arrhythmias (possibly RVR episodes with his chronic A-fib), tamponade, and
OH.� EKG in the ED as well as repeat EKG had no significant changes compared to priors.� There were no acute events on telemetry. Cardiology and cardiothoracic surgery were consulted and recommend holding Eliquis and repeating head CT on 12/23/2024,
which was negative for acute intracranial abnormality. Eliquis was restarted on 12/23/2024 and per cardiology aspirin 81 mg was discontinued as Juan A has not had any CAD events in over a year. As such, the etiology of his symptoms most likely
favors a combination of noncardiac cause such as vasovagal and orthostatic syncope, syncope due to changes in med (recently added Lasix), and electrolyte imbalances.� Initially, he was unable to complete orthostatic vital signs without feeling very
weak per nursing. The multiple set of orthostatic vitals taken are noted above in vitals and reflect orthostatic etiology. PE, stroke or TIA, and infection were ruled out based on workup.� On 12/22/2024, his friend Ilene was present for rounds and
stated that he has been more weak, losing weight, and is likely not taking care of himself well, which could all be contributing to his weakness, lightheadedness, and then resultant falls. We agree with this. PT and physiatry are consulted for
further discharge and rehab recs.
- Cardiology, CTS following
-- Eliquis held 12/22/[address] 12/23/2024.
-- Restarted Eliquis 12/23/2024.
-- Continue to hold Lasix 20 mg
- CBC, BMP, troponins, BNP all unremarkable
- UA, TSH, and cortisol unremarkable
- PT consulted, recommending home health
- Repeat echo 12/22/2024 without significant changes from priors
- PT, physiatry consulted
--Physiatry recommending SNF, ELEN stockings tomorrow, and changing Flomax and lisinopril from day to night doses.
-- Regroup, reassess, and discuss discharge location tomorrow.
#Nonocclusive thrombus, new
BLE DVU 2 on 12/22/2024 showed nonocclusive thrombus involving the left common femoral vein and the saphenofemoral junction.
- Eliquis 5 mg p.o. twice daily
#New occipital condyle fracture
#Left rib pain
# Right sided forehead hematoma
CT head and CT cervical spine in ED 12/21/2024 were remarkable for a left-sided occipital condyle fracture which is being managed by neurosurgery with a collar and outpatient follow-up plan.� Per neurosurgery, there is no need for surgical
intervention. Juan A continues to complain about discomfort related to the hard [place] collar, especially around his jaw and chest, stating that he is unable to chew or breathe with comfortably. OT and [employer] equipment request consults were placed
for a better fitting and comfortable collar.
- Neurosurgery consulted
-- Recommend hard collar immobilization follow-up as outpatient in 4 to 6 weeks
- OT and [employer] equipment request consult for collar fitting
- Chest x-ray not concerning for rib fracture
- Acetaminophen 650 mg p.o. every 4 hours as needed for pain control
--ISO more pain, increased pain regimen: Acetaminophen 1000 mg 3 times daily and oxycodone 5 mg p.o. every 4 hours as needed for severe pain.
- Ice for hematoma
#CAD s/p CABG x 3
#Essential hypertension
Blood pressure in the ED was 180s over 110s.� He received a one-time drip of IV hydralazine 10 mg.� We will continue home medications and consult cardiology for further recs.� Of note, he was started on Lasix 20 mg daily at recent discharge.� We
will be holding this given concern for orthostatic hypotension causing falls and syncope.
- Hold Lasix 20 mg daily until orthostatic vitals are back
-Continue home carvedilol 3.125 mg p.o. twice daily
- DC aspirin 81 mg daily per cardiology as Juan A has not had an acute CAD event in over a year
-Follow-up lipid panel
-Continue lisinopril 20 mg p.o. daily -hold if systolic blood pressure is less than 100 or heart rate is less than 60
#BPH
- Continue tamsulosin 0.4 mg p.o. daily
#Vitamin deficiency
- Patient placed on low-cholesterol diet
- Holding patient's home supplements of CoQ 10, probiotic, vitamin B12, vitamin C, vitamin D3, magnesium glycinate
CODE STATUS: Full code
Anticipated Discharge: 24 - 48 hours (Pending PT and physiatry recs)
Subjective/Interval History
-
Date of Service: December 23, 2024
Juan A is a 74 yo male with PMH of CAD s/p SUPRIYA to OM3 12/2014, then CABG 11/[address] Banuelos, persistent A fib (was on eliquis but stopped it and restarting today), chronic HFpEF, moderate/severe s/p TAVR here on 12/16/24 and new med of Lasix,
moderate/severe TR, HTN, hyperlipidemia, and lymphedema here for workup after his second fall since discharge from TAVR and found to have a left-sided occipital condyle fracture. Given his cardiac history and recent procedure, he was�admitted to
telemetry for further monitoring with cardiology, CTS, and NSG following. See H&P for full history. Thus far, the most likely etiology of his falls is lightheadedness due to orthostatic changes.
Head CT this morning showed no acute intracranial abnormality: Eliquis was restarted. Per cards, since no CAD event in the last year, aspirin 81 mg was DC'd.
This morning, Juan A states that he still feels weak, especially when he tries to stand up. He also tells me about his continued difficulty eating due to his tooth extractions that he got in preparation for his TAVR. I discussed with him the
importance of increasing his p.o. intake and the likelihood of continued weight loss, poor diet, and lack of ambulation to continue worsening his symptoms. He was agreeable and requested some dietary guidance. Nutrition and COIN MACHINE SUPERVISOR were consulted for
further recs.
Juan A also states that he is very uncomfortable with the hard collar, specifically he has pain on the chest and jaw from the pressure of the collar. I told him I would reach out to neurosurgery and OT to see if we can get some padding and better
fitting for the collar. He really appreciated this.
Objective Data
-
Labs:
Laboratory Results
12/23/24
07:23
WBC 10.1
Hgb 13.6
Hct 40.5
Plt Count 192
Sodium 135
Potassium 3.8
Chloride 105
Carbon Dioxide 23
BUN 25 H
Creatinine 0.6 L
Glucose 102 H
Calcium 9.3
Vital Signs:
Vital Signs
Temp Pulse Resp BP Pulse Ox
98.1 F 87 16 165/98 97
12/23/24 09:03 12/23/24 10:04 12/23/24 09:03 12/23/24 10:04 12/23/24 09:03
I&O
12/22/24 12/23/24 12/24/24
06:59 06:59 06:59
Intake Total 780 / 780
Output Total 425 / 425
Balance 355 / 355
Review of Systems
-
Constitutional: Reports No Symptoms
EENT: Reports No Symptoms Reported
Respiratory: Reports No Symptoms
Cardiac: Reports No Symptoms
Abdomen/GI: Reports No Symptoms
Genitourinary: Reports No Symptoms
Musculoskeletal: Reports Other (Forehead bruising s/p fall, right greater than left pitting edema of lower extremity)
Skin: Reports Other (General bruising from fall)
Neuro: Reports No Symptoms
Endocrine: Reports No Symptoms
Hematologic / Lymphatic: Reports No Symptoms
Allergy / Immunology: Reports No Symptoms
Physical Exam
-
General: No Apparent Distress, Conversant and Other
HEENT: Other (Small right-sided forehead bruise, and a hard [place] collar)
Respiratory: Clear to Auscultation and Non Labored Respirations
Cardiac: S1/S2 and Irregular Rhythm (A-fib)
GI: Soft, Nontender and Nondistended
Musculoskeletal: No Clubbing, Edema, Right Lower Extrem (2+) and Edema, Left Lower Extrem (1+)
Skin: Warm, Dry and Other (Generalized bruising from recent fall)
Neuro: AO x 3
Psych: Calm
--- NOTE | 2024-12-23 16:34 | CM ---
Therapy in to see patient with friend and physician. Patient seen by Dr. Dumas and therapy now recommending SNF vs Acute rehab at this time. CM will send referrals to SNF in area closest to [place]. CM will continue to follow for discharge
planning needs.
Plan; SNF vs Acute Rehab.
[2024-12-23] MEDS: APRESOLINE 5 MG IV ×2 (20:42→23:42)
[2024-12-23] MEDS: ELIQUIS 5 MG PO (20:43)
[2024-12-23] MEDS: TYLENOL 1000 MG PO (20:44)
[2024-12-23] MEDS: SENOKOT-S 1 TABLET PO (20:55)
[2024-12-24] VITALS (13 sets, daily range): BP systolic 89–174; BP diastolic 56–105; PULSE 76–124; O2SAT 97; BMI 27.1
[2024-12-24] MEDS: APRESOLINE IV ×3 (03:46→13:02)
[2024-12-24 08:51] LABS: Hematocrit 40.4 % (39.0-52.0); Hemoglobin 13.4 g/dL (13.0-18.0); Mean Corp Hgb Conc. 33.2 g/dL (33.0-37.0); Mean Corpuscular Volume 85.2 fL (80.0-94.0); Nucleated Red Blood Cells % 0 % (-); Platelet Count 195 10^3/uL (130-400); Red Cell Dist. Width 14.9 % (11.5-14.5)
[2024-12-24] MEDS: ELIQUIS 5 MG PO ×2 (09:00→20:21)
[2024-12-24] MEDS: TYLENOL 1000 MG PO ×3 (09:00→22:15)
[2024-12-24] MEDS: ZETIA 10 MG PO (09:00)
[2024-12-24] MEDS: COREG 3.125 MG PO ×2 (09:00→20:19)
[2024-12-24] MEDS: TYLENOL PO (09:06)
--- NOTE | 2024-12-24 09:09 | W.PN.CD ---
Today's Communication / Plan
-
continue to hold lasix: will be prn going forward
ambulate with orthostatic VS today
eliquis has been resumed
Impression / Plan
-
74 y/o male (cardiology patient of Dr. Duarte) with HTN, HLD, HFpEF, PAF, CAD s/p CABG, and severe with recent TAVR 12/16/24 returns with fall with possible syncope.
Fall with possible syncope:
-he is poor historian, but thinks he may have been dizzy and passed out versus slip and fall. Injuries have been sustained as noted in detail.
-etiology unclear. Echo without effusion. Tele with AFIB (persistent).
-suspect may be due to orthostatic hypotension
-lasix stopped, liberal PO intake
-ambulate with orthostatic VS again today
-trend tele
Neck trauma
-Neuro surgery consulted.
-eliquis resumed
Severe aortic valve stenosis
-S/P #29 Yang ZAHIRA Resilia TAVR via right transfemoral approach on 12/16/2024.
-Transient LBBB post-op
-Echo 12/22/24: EF 55-60%. Enlarged right ventricular size. Normal right ventricular systolic function. Well seated #29 Zhaira S3 Ultra TAVR. Peak/mean gradients across the aortic valve are 9/4 mmHg. No aortic regurgitation is seen. Moderate
tricuspid regurgitation. Estimated pulmonary artery pressure of 20-25 mmHg.
CAD:
-hx CABG
-stopped ASA since on eliquis for A fib
Persistent atrial fibrillation:
-continue Coreg
-Eliquis 5mg bid resumed
HTN:
-BP's elevated, but technically orthostatic so will not adjust meds upward at this time
-continue current meds for now, keep HOB elevated
HFpEF, chronic, stable:
-stop lasix; make prn
Physical Exam
Vital Signs/Labs
Vital Signs
Temp Pulse Resp BP Pulse Ox
97.3 F 91 20 138/93 96
12/24/24 07:00 12/24/24 07:00 12/24/24 07:00 12/24/24 08:52 12/24/24 07:00
12/24/24 08:13
Magnesium 2.0 mg/dl (1.6-2.3) 12/22/24 09:24
TSH 2.32 uIU/ml (0.47-4.68) 12/22/24 09:24
12/22/24
09:24
Fdu-G-Cfgpqeuzezm Pept 5610
LAB Results
12/21/24 12/22/24 12/22/24
20:28 02:05 09:24
Troponin I 0.032 0.032 0.019 D
12/22/24
13:53
Troponin I 0.016
Physical Exam
Constitutional: No acute distress
EENT: Moist mucous membranes
Cardiovascular: Pedal edema is absent, JVD pressure is normal, Systolic murmur absent and Rhythm/rate is irregular
Respiratory: Respiratory effort normal
Neuro/Psych: AO x 3
Data Reviewed
-
Date of Service: December 24, 2024
EKG: Other (Tele: A fib 80s-90s)
Labs: Labs Reviewed by me
[2024-12-24 09:18] LABS: Blood Urea Nitrogen 23 mg/dl (9-20); Calcium 9.1 mg/dl (8.4-10.2); Carbon Dioxide 24 mmol/L (22-30); Chloride 105 mmol/L (98-107); Estimated Creatinine Clearance 112 ml/min; Glucose 96 mg/dl (70-99); HDL Cholesterol 37 mg/dl; LDL Cholesterol, Calculated 125 mg/dl; Potassium 3.9 mmol/L (3.5-5.1); Sodium 133 mmol/L (135-145); Very Low Density Lipoprotein 20 mg/dl (0-30); eGFR > 60.00
--- NOTE | 2024-12-24 10:35 | W.PN.REHAB ---
Documented by User: Mandi Cosby MD, Resident 12/24/24 16:50
Today's Communication / Plan
-
Summary of recommendations:
- Discharge Destination: Acute rehab
- Orthostatic hypotension causing syncope and falls:
- Changed tamsulosin to at night because of orthostatic side effects
- Must maintain hydration.� IV fluid as necessary.
- Agree with holding diuretics for now.
- Could consider thigh-high teds, but patient has DVT.
- If no improvement after holding diuretics consider midodrine 5 mg 0600 and 1200 and titrating up to 10 mg.� Generally hold midodrine in the evening as it can make supine hypertension worse.
- Might benefit from taking amlodipine or nifedipine at approximately 1800.� Would need to be careful with getting up to go to the bathroom at night without midodrine.
- Avoid fludrocortisone with CHF history
- Suggest being up out of bed is much as possible throughout the day.�
- Increase leg and arm exercises to help with increasing blood pressure particularly prior to sitting or standing up.
Left occipital condyle fracture: �����Agree with consulting neurosurgery for additional padding
Will continue to follow patient.
Thank you for allowing me to care for your patient. Please contact me with any questions or concerns.
Assessment/Function
-
Assessment:
General Appearance/Observation: Well-developed, thin male in no apparent distress. Wearing c-collar
Pain/Comfort Assessment: pain to light palpation at occiput
Mood/Affect: Appropriate
Integumentary: Has mild bruising over right forehead
Eyes: Conjunctiva/Lids: normal ��� Pupils: pupils equal round and reactive to light and Accommodation
Ears/Nose/Throat: oral mucosa moist,� throat clear.������������ Lips/Teeth/Gums: normal
Neck: Limited exam with immobilization/[place] J cervical-collar.
Cardiovascular: Heart: regular, no murmur
Respiratory: Respiratory Effort/Chest Expansion: normal ������� Auscultation: Clear to auscultation bilaterally
Gastrointestinal: abdomen not tender, no distension, normal abdominal bowel sounds
Genitourinary: No Varela
Rectal Exam: Deferred
Extremities: Edema: Mild right lower extremity edema cyanosis: None Trophic changes: None
Neurology Exam:
Orientation: Alert, Oriented to self, Time, Place
Memory: Intact for immediate medical concerns
Repetition: Intact
Comprehension: Intact
Two step command: Intact
Cranial Nerves:
�� CNII: Pupillary light reflex: Intact��� Visual Field: Intact
�� CN III, IV, : Extraocular muscles: Intact
�� CN V: Facial Sensation at Forehead: Intact, Maxilla: Intact, Mandible: Intact
�� CN VII: Facial movement: Symmetric
�� CN VIII: Hearing: Normal
�� CN IX/X: Speech & swallow: Normal, Position of Uvula: Midline
�� CN XI: Shoulder shrug: Symmetric
�� CN XII: Tongue protrusion: Midline
Sensory:
�� Light touch: Intact in bilateral upper and lower extremities
Musculoskeletal: Motor: (Manual muscle scale 0-5)
Muscle SA EF WE EE FF FA HF KE DF EHL PF
Right� 5 5 5 5 5 5 5 5 5 5 5
Left 5 5 5 5 5 5 5 5 5 5 5
Tone: Normal in all extremities
Range of Motion: Passively within normal limits in all extremities
Function:
Bed Mobility: minimal assistance supine to sit
Transfers: minimal assistance / independent for supine to sit, sit to stand, bed to chair, stand to sit
Ambulation: independent with single point cane. Ambulated 3 feet to bedside chair with rolling walker and minimal assistance. Slow gait, steady with RW. Distance limited by BP drop with activity
Steps:20
ADL's: modified independence for pulling pants over feet and hips due to impaired neck flexion (hard collar, occiput fracture). Minimal assistance for UE self care, toileting, grooming. Independent for eating
PT and OT recommend Acute Rehab
Plan
-
PM&R PT/OT to increase independence with ADLs, improve balance, coordination, endurance, strength, mobility, community reintegration, decreased burden of care on others and family education.
Falls: Appears to be secondary to orthostatic hypotension but could be multifactorial. Lightheadedness could be due to adjusting to altered hemodynamics from artificial valve.
- Orthostatic hypotension causing syncope and falls. Try to measure orthostatic blood pressure
- Changing tamsulosin to at night because of orthostatic side effects, worse of a problem during the day.
- Must maintain hydration.� IV fluid as necessary.
- Agree with restarting lisinopril, continuing carvedilol, holding furosemide until orthostatic vitals measured, and using hydralazine when BP spikes
- Agree with continuing thigh-high teds, but weigh risks/benefits with patient's left DVT.
- If no symptomatic improvement, consider midodrine 5 mg 0600 and 1200 and titrating up to 10 mg.� Generally hold midodrine in the evening as it can make supine hypertension worse.
- Might benefit from amlodipine at approximately 1800.� Would need to be careful with getting up to go to the bathroom at night without midodrine.
- Avoid fludrocortisone with CHF history
- Can keep head of bed up at 30 degrees or higher is much as possible to prevent the increasing of blood pressure when lying flat and worsening drop the more he comes up from supine position.
- Suggest being up out of bed is much as possible throughout the day.�
- Increase leg and arm exercises to help with increasing blood pressure particularly prior to sitting or standing up.
Left occipital condyle fracture: Continues to have pain. No decreased light touch in lower extremities, lower extremity strength is good.� No acute neurologic concern in the extremities. Patient declines headache, changes in vision, difficulty with
concentration. Endorsed memory difficulties prior to falls. No signs of concussion.
- Continue Tylenol 1000 mg PO TID
- Agree with adding oxycodone 5 mg PO q4 prn
- Agree with consulting neurosurgery for additional padding at occiput
HTN: lisinopril 20 mg PO daily and carvedilol 3.125 mg twice daily. Holding furosemide 40 mg PO daily
HLD: ezetimibe 10 mg PO daily
Coronary artery disease: Aspirin 81 mg PO daily, carvedilol 3.125 mg PO BID, Zetia
Atrial fibrillation:� apixaban 5 mg PO BID and carvedilol 3.125 mg PO BID��������������������������������������
CHF: EF 68%, carvedilol 3.125 mg PO BID. Lisinopril and Lasix monitor fluid status
�
Nonocclusive lower extremity DVT: Apixaban 5 mg PO BID, has been on Eliquis recently. Spoke with Dr. West not likely failure of Eliquis and started on it last week.
Psych: Psychology consult.� Monitor mood, adjust medications as needed.
Skin: monitor for pressure sores/rashes/lesions.
Pain: acetaminophen as needed.
Bowel: Colace and Senna, PRN bisacodyl.
Bladder: Time void, PVRs, PRN straight cath. Continue tamsulosin 0.4 mg PO but changed to at night because of side effects of orthostasis.
GI Prophylaxis: Pantoprazole
DVT Prophylaxis: Continue apixaban
Pulmonary: Incentive spirometry
Safety: Continue to reinforce assistance with all transfers.
Code Status:� Full code
Dispo (date/plan/equipment needs): Anticipate acute rehab.� Social history reviewed.
Functional and Medical Goals: Modified Independent with ADL�s, ambulation, transfers
Discharge Destination: - Based on updated therapy functional status patient will benefit most from being in acute rehab. He has medical and functional needs that need to be improved to help prevent continued falls and possible injury. He will need
adjustment of his medications and monitoring of his cardiovascular status while doing this.
Total Time Spent with Patient (in minutes): 35
Subjective
-
Date of Service: December 24, 2024
Patient Complaints: posterior skull pain in a band extending bilaterally at occiput
Vital Signs / Labs
-
Vital Signs and Labs:
Temp Pulse Resp BP Pulse Ox
97.3 F 91 20 138/93 96
12/24/24 07:00 12/24/24 07:00 12/24/24 07:00 12/24/24 08:52 12/24/24 07:00
12/24/24 08:13
12/24/24 08:13
12/24/24
08:13
RDW 14.9 H
MPV 11.2 H
Absolute Monos (auto) 1.0 H
Lymphocytes % 18.0 L
Monocytes % 11.5 H
Sodium 133 L
BUN 23 H
Creatinine 0.6 L

Documented by User: Shimon Dumas MD 12/24/24 17:57
Today's Communication / Plan
-
Summary of recommendations:
- Discharge Destination: Acute inpatient rehab
- Orthostatic hypotension causing syncope and falls:
- Consider holding tamsulosin, patient notes no history of BPH. Can do bladder scans and monitor for retention
- Maintain hydration.� IV fluid as necessary.
- Agree with holding diuretics for now.
- Would avoid hydralazine with increase in blood pressure as it can cause a drastic drop and worsen orthostasis, consider amlodipine or nifedipine at approximately 1800. Consider sitting patient up all day.
- Patient placed on midodrine 5 mg at 0800 and 1700. Would typically suggest 0600 and 1200 and titrating up to 10 mg if needed keep patient sitting up during the day.� Generally hold midodrine in the evening as it can make supine hypertension
worse. Suggest sitting patient up in wheelchair, side chair or bed.� Would need to be careful with getting up to go to the bathroom at night without midodrine.
Bladder: Time void, PVRs, PRN straight cath. ? Need for Flomax. Patient denies history of prostate or urination concerns.
Will continue to follow patient.
Thank you for allowing me to care for your patient. Please contact me with any questions or concerns.
Assessment/Function
-
Assessment:
General Appearance/Observation: Well-developed, thin male in no apparent distress. Wearing c-collar
Pain/Comfort Assessment: pain with pressure at the left occiput
Mood/Affect: Appropriate
Integumentary: Has mild bruising over right forehead
Eyes: Conjunctiva/Lids: normal ��� Pupils: pupils equal round and reactive to light and Accommodation
Ears/Nose/Throat: oral mucosa moist,� throat clear.������������ Lips/Teeth/Gums: normal
Neck: Limited exam with immobilization/[place] cervical-collar. Cervical padding is folded up and was adjusted
Cardiovascular: Heart: regular, no murmur
Respiratory: Respiratory Effort/Chest Expansion: normal ������� Auscultation: Clear to auscultation bilaterally
Gastrointestinal: abdomen not tender, no distension, normal abdominal bowel sounds
Genitourinary: No Varela
Extremities: Edema: Slight right lower extremity edema, teds cyanosis: None Trophic changes: None
Neurology Exam:
Orientation: Alert, Oriented to self, Time, Place
Memory: Intact for immediate medical concerns
Repetition: Intact
Comprehension: Intact
Two step command: Intact
Cranial Nerves:
�� CNII: Pupillary light reflex: Intact��� Visual Field: Intact
�� CN III, IV, : Extraocular muscles: Intact
�� CN V: Facial Sensation at Forehead: Intact, Maxilla: Intact, Mandible: Intact
�� CN VII: Facial movement: Symmetric
�� CN VIII: Hearing: Normal
�� CN IX/X: Speech & swallow: Normal, Position of Uvula: Midline
�� CN XI: Shoulder shrug: Symmetric
�� CN XII: Tongue protrusion: Midline
Sensory:
�� Light touch: Intact in bilateral upper and lower extremities
Musculoskeletal: Motor: (Manual muscle scale 0-5)
Muscle SA EF WE EE FF FA HF KE DF EHL PF
Right� 5 5 5 5 5 5 5
Left 5 5 5 5 5 5 5
Tone: Normal in all extremities
Range of Motion: Passively within normal limits in all extremities
Function:
Bed Mobility: minimal assistance supine to sit
Transfers: minimal assistance sit to stand, bed to chair, stand to sit
Ambulation: Ambulated 3 feet to bedside chair with rolling walker and minimal assistance. Slow gait, steady with RW. Distance limited by BP drop with activity
Steps:20
ADL's: Min assist grooming, toileting, upper extremity self-care. Mod assist lower extremity self-care.
PT and OT recommend Acute Rehab. Therapy limited with orthostasis and dizziness.
Plan
-
Assessment
74 y/o M PMH (CAD s/p stent and CABG 11/2020, persistent A fib (on eliquis), chronic HFpEF, moderate/severe s/p TAVR here on 12/16/24 and new med of Lasix, moderate/severe TR, HTN, hyperlipidemia, and lymphedema) with second fall since discharge
from [facility] 5 days ago and found to have a left-sided occipital condyle fracture possibly secondary to orthostasis.
Plan
PM&R PT/OT to increase independence with ADLs, improve balance, coordination, endurance, strength, mobility, community reintegration, decreased burden of care on others and family education.
Falls: Appears to be secondary to orthostatic hypotension but could be multifactorial. Lightheadedness could be due to adjusting to altered hemodynamics from artificial valve.
- Orthostatic hypotension causing syncope and falls. Try to measure orthostatic blood pressure
- Tamsulosin at night because of orthostatic side effects, worse of a problem during the day. Patient wondering whether he actually needs this to urinate, denies history of BPH.
- Must maintain hydration.� IV fluid as necessary.
- Patient on lisinopril 20 mg at night, Coreg 3.125 mg twice daily. Continuing to hold furosemide until orthostatic vitals measured. Would avoid hydralazine with increase in blood pressure as it can cause a drastic drop and worsen orthostasis.
Consider sitting patient up.
- thigh-high teds would be helpful from a orthostatic component, but weigh risks/benefits with patient's left DVT.
- Patient placed on midodrine 5 mg at 0800 and 1700. Would typically suggest 0600 and 1200 and titrating up to 10 mg if needed.� Generally hold midodrine in the evening as it can make supine hypertension worse. Suggest sitting patient up in
wheelchair, side chair or bed
- Might benefit from amlodipine at approximately 1800.� Would need to be careful with getting up to go to the bathroom at night without midodrine.
- Avoid fludrocortisone with CHF history
- Can keep head of bed up at 30 degrees or higher is much as possible to prevent the increasing of blood pressure when lying flat and worsening drop the more he comes up from supine position.
- Suggest patient being up out of bed is much as possible throughout the day.�
- Increase leg and arm exercises to help with increasing blood pressure particularly prior to sitting or standing up.
Left occipital condyle fracture: Continues to have pain. No decreased light touch in lower extremities, lower extremity strength is good.� No acute neurologic concern in the extremities. Patient declines headache, changes in vision, difficulty with
concentration. Endorsed memory difficulties prior to falls. No signs of concussion.
- Tylenol 1000 mg PO TID
- Oxycodone 5 mg PO q4 prn, monitor for side effects including dizziness
HTN: lisinopril 20 mg PO daily and carvedilol 3.125 mg twice daily. Holding furosemide 40 mg PO daily
HLD: ezetimibe 10 mg PO daily
Coronary artery disease: Aspirin 81 mg PO daily stopped with patient on apixaban per cardiology, carvedilol 3.125 mg PO BID, Zetia
Atrial fibrillation:� apixaban 5 mg PO BID and carvedilol 3.125 mg PO BID��������������������������������������
CHF: EF 68%, carvedilol 3.125 mg PO BID, Lisinopril. Lasix on hold with orthostasis
�
Nonocclusive lower extremity DVT: Apixaban 5 mg PO BID.
Psych: Monitor mood, medications as necessary
Skin: monitor for pressure sores/rashes/lesions.
Pain: acetaminophen as needed.
Bowel: Colace and Senna, PRN bisacodyl.
Bladder: Time void, PVRs, PRN straight cath. Continue tamsulosin 0.4 mg PO but changed to at night because of side effects of orthostasis.
GI Prophylaxis: Pantoprazole
Pulmonary: Incentive spirometry
Safety: Continue to reinforce assistance with all transfers.
Code Status:� Full code
Dispo (date/plan/equipment needs): Anticipate acute rehab.� Social history reviewed.
Functional and Medical Goals: Modified Independent with ADL�s, ambulation, transfers
Discharge Destination: - Based on updated therapy functional status patient will benefit most from being in acute rehab. He has medical and functional needs that need to be improved to help prevent continued falls and possible injury. He will need
adjustment of his medications and management of his cardiovascular status while doing this.
Attending Statement:
I saw and examined the patient today. Reviewed care plan with patient, friend, and resident. I wrote the above subjective and adjusted my prior physical exam, and plan as documented. A total of 50 minutes were spent with the patient preparing for
the evaluation, obtaining history, performing examination and evaluation, counseling, data review, case management, care coordination, customer orders clerk, and EMR documentation.
Subjective
-
Date of Service: December 24, 2024
Patient seen and examined today. Overall feeling similar to yesterday. Did not feel as dizzy this morning. Still has pain in the back of the left head and a little bit to the left neck. Denies any new numbness or tingling concerns. No changes
in bowel or bladder habits. Denies any fevers, chills, chest pain, shortness of breath, nausea, vomiting, abdominal pain, dysuria, or diarrhea. Tolerating therapy. His friend Ilene at bedside notes that he looks better more interactive/engaging
today.
--- NOTE | 2024-12-24 10:43 | CM ---
Initiated Acute Rehab auth with [facility], spoke with Reta at [phone]
Pended to [facility] for review.
Pended reference # [id number].
Await call back.
--- NOTE | 2024-12-24 14:56 | CM ---
Patient seen at bedside with physicians on . Patient pending auth for [facility] with [employer] and pending acceptances if refused to SNF options. Patient will need auth for either placement. CM will continue to follow for discharge planning needs.
Plan; [facility] if approved vs SNF. watch for auth and acceptances.
[2024-12-24] MEDS: ROXICODONE 5 MG PO (15:00)
[2024-12-24] MEDS: APRESOLINE 5 MG IV ×2 (17:32→20:18)
--- NOTE | 2024-12-24 18:15 | W.PN.HOSP.TC ---
Addendum entered and electronically signed by Santa West MD 12/24/24 19:17:
I saw and evaluated the patient independently. I reviewed the resident�s note and agree with findings and plan as documented by Dr. Stanley.
GENERAL: well developed, well nourished, male in no apparent distress
HEENT: NC--trauma to right forehead--hard cervical collar in place
HEART: irreg irreg
LUNGS : clear to auscultation bilaterally
ABDOM: soft, nontender, nondistended, + bowel sounds
EXT: no cyanosis, clubbing--3+ pitting edema right LE
NEUROLOGIC: grossly intact but despite being oriented and answering name, place, year, president correctly, pt seems to not know who his doctors are, what meds he takes, etc--poor historian
Syncope x 2 after recent TAVR placement--resulting in traumatic mechanical fall--had near syncope day of discharge from and went to ED later in day for same (pt does not remember)--etiology most likely orthostatic hypotension from intolerance to
new meds post TAVR --apprec cards, CT surgery-- orthostatics positive, added midodrine but supine BP high--PT/OT-- TSH & cortisol WNL--stopped diuretics--cont Eliquis for now--PT--no fluid restriction--will need [facility] if auth goes through
New occipital condyle fracture/Left rib pain/Right sided forehead hematoma--all from fall--CT head and CT cervical spine in ED 12/21/2024 were remarkable for a left-sided occipital condyle fracture which is being managed by neurosurgery with a collar
and outpatient follow-up plan. Per neurosurgery, is no need for surgical intervention-- Recommended hard collar immobilization follow-up as outpatient in 4 to 6 weeks-- CXR and rib x-rays show no fractures--pt c/o headache--tried to give IVF bolus
but friend Ilene at bedside refused
chronic afib/flutter--cont coreg and Eliquis
HLD--cont zetia--check lipid panel
Essential hypertension--BP running high but aggressive treatment limited by orthostasis-- IV hydralazine-cont home meds with parameters, changed lisinopril to HS-carvedilol/asa
BPH--most likely-- Continue tamsulosin for now but can contribute to hypotension--transitioned to night
Vitamin deficiency supplements- Patient placed on low-cholesterol diet-- Holding patient's home supplements of CoQ 10, probiotic, vitamin B12, vitamin C, vitamin D3, magnesium glycinate
DVT proph--Eliquis
CODE STATUS: Full code
Original Note:
Today's Communication/Plan
-
Continue monitoring orthostatic blood pressures and adjusting medication regimen as needed
Approved by [facility] per adult protective caseworker
Continue encouraging p.o. intake
Assessment / Plan
Assessment / Plan
Juan A is a 74 yo male with PMH of CAD s/p SUPRIYA to OM3 12/2014, then CABG 11/[address] Banuelos, persistent A fib (started after recent TAVR on 12/16/2024), chronic HFpEF, moderate/severe s/p TAVR here on 12/16/24 and new since TAVR medication of
Lasix, moderate/severe TR, HTN, hyperlipidemia, and lymphedema here for workup after his second fall since discharge from TAVR and found to have a left-sided occipital condyle fracture. Given his cardiac history and recent procedure, he was admitted
to telemetry for further monitoring with cardiology, CTS, NSG following.� Per review of cardiology's note, he reported a significant weight loss and poor diet in the last month secondary to tooth extraction in preparation for his valve replacement.�
When asked, Juan A reconfirmed this.� [facility]OR[facility] and nutrition were consulted for further recs.� PORTER HEAD recommended soft, bite-size, thin liquid diet which she was started on on 12/23/2024.� Repeat head CT on 12/23/2024 was negative for any acute intracranial
abnormality.� Given his weakness and low appetite, physiatry was consulted along with PT and OT.� See subjective for full history.� Workup initially encompassed a broad differential, however now favors a combination of etiologies most likely poor
nutrition due to tooth extraction, new medications lowering blood pressure (Lasix), dehydration, and orthostatic changes.
#Syncope s/p recent TAVR on 12/16/2024
#Multiple falls of unknown etiology, likely orthostatic
#Orthostatic hypotension
Given his recent cardiac procedure, there is high concern for a cardiac cause for his syncope/falls.� On the differential are conduction abnormalities, valve dysfunction, arrhythmias (possibly RVR episodes with his chronic A-fib), tamponade, and
LA.� EKG in the ED as well as repeat EKG had no significant changes compared to priors.� There were no acute events on telemetry.� Cardiology and cardiothoracic surgery were consulted and recommend holding Eliquis and repeating head CT on 12/23/2024,
which was negative for acute intracranial abnormality.� Eliquis was restarted on 12/23/2024 and per cardiology aspirin 81 mg was discontinued as Juan A has not had any CAD events in over a year.�As such, the etiology of his symptoms most likely favors
a combination of noncardiac cause such as vasovagal and orthostatic syncope, syncope due to changes in med (recently added Lasix), and electrolyte imbalances. Initially, he was unable to complete orthostatic vital signs without feeling very weak per
nursing.� The multiple set of orthostatic vitals taken are noted above in vitals and reflect orthostatic etiology.�PE, stroke or TIA, and infection were ruled out based on workup. On 12/22/2024, his friend Ilene was present for rounds and stated that
he has been more weak, losing weight, and is likely not taking care of himself well, which could all be contributing to his weakness, lightheadedness, and then resultant falls.� We agree with this.� PT and physiatry are consulted for further
discharge and rehab recs.
- Cardiology, CTS following
-- Eliquis held 12/22/[address] 12/23/2024.�
-- Restarted Eliquis 12/23/2024.
-- Continue to hold Lasix 20 mg
- CBC, BMP, troponins, BNP all unremarkable
- UA, TSH, and cortisol unremarkable
- PT consulted, recommending home health
- Repeat echo 12/22/2024 without significant changes from priors
- PT, physiatry consulted
--Physiatry recommending SNF, ELEN stockings, abdominal binder, and changing Flomax and lisinopril from day to night doses.
---All done 12/24/2024
-- He is approved to go to [facility] per case management.
-- 2 time dose of midodrine 5 mg on 12/24/2024 with slight improvement in orthostatic pressures; he refused fluid bolus per advice from primary contact Ilene, who is pushing for p.o. fluids.
#Nonocclusive thrombus, new
BLE DVU 2 on 12/22/2024 showed nonocclusive thrombus involving the left common femoral vein and the saphenofemoral junction.
- Eliquis 5 mg p.o. twice daily
#New occipital condyle fracture
#Left rib pain
#Right sided forehead hematoma
#Headache, new
CT head and CT cervical spine in ED 12/21/2024 were remarkable for a left-sided occipital condyle fracture which is being managed by neurosurgery with a collar and outpatient follow-up plan.� Per neurosurgery, there is no need for surgical
intervention.� Juan A continues to complain about discomfort related to the hard [place] collar, especially around his jaw and chest, stating that he is unable to chew or breathe with comfortably.� OT and [employer] equipment request consults were placed
for a better fitting and comfortable collar.
- Neurosurgery consulted
-- Recommend hard collar immobilization follow-up as outpatient in 4 to 6 weeks
- OT and [employer] equipment request consult for collar fitting
--Nursing to keep adding padding to [place] collar currently. We were told that all other colors would be more uncomfortable.
- Chest x-ray not concerning for rib fracture
- Acetaminophen 650 mg p.o. every 4 hours as needed for pain control
--ISO more pain, increased pain regimen: Acetaminophen 1000 mg 3 times daily and oxycodone 5 mg p.o. every 4 hours as needed for severe pain.
- Ice for hematoma
- Tylenol 1000 mg p.o. 3 times daily and oxycodone 5 mg every 4 hours as needed for headache
#CAD s/p CABG x 3
#Essential hypertension
Blood pressure in the ED was 180s over 110s.� He received a one-time drip of IV hydralazine 10 mg.� We will continue home medications and consult cardiology for further recs.� Of note, he was started on Lasix 20 mg daily at recent discharge.� We
will be holding this given concern for orthostatic hypotension causing falls and syncope.
- Hold Lasix 20 mg daily until orthostatic vitals are back
-Continue home carvedilol 3.125 mg p.o. twice daily
- DC aspirin 81 mg daily per cardiology as Juan A has not had an acute CAD event in over a year
-Follow-up lipid panel
-Continue lisinopril 20 mg p.o. daily -hold if systolic blood pressure is less than 100 or heart rate is less than 60
#BPH
- Continue tamsulosin 0.4 mg p.o. daily
#Vitamin deficiency
- Patient placed on low-cholesterol diet
- Holding patient's home supplements of CoQ 10, probiotic, vitamin B12, vitamin C, vitamin D3, magnesium glycinate
CODE STATUS: Full code
Anticipated Discharge: 24 - 48 hours
Subjective/Interval History
-
Date of Service: December 24, 2024
Juan A is a 74 yo male with PMH of CAD s/p SUPRIYA to OM3 12/2014, then CABG 11/[address] Banuelos, persistent A fib (was on eliquis but stopped it and restarting today), chronic HFpEF, moderate/severe s/p TAVR here on 12/16/24 and new med of Lasix,
moderate/severe TR, HTN, hyperlipidemia, and lymphedema here for workup after his second fall since discharge from TAVR and found to have a left-sided occipital condyle fracture. Given his cardiac history and recent procedure, he was�admitted to
telemetry for further monitoring with cardiology, CTS, and NSG following. See H&P for full history. Thus far, the most likely etiology of his falls is lightheadedness due to orthostatic changes.
-Ordered ELEN stockings and abdominal binder for continuing orthostatic changes
-Given midodrine 5 mg at 8 AM and 5 PM today with improvement in orthostatic blood pressure. Also given LR 500 cc bolus.
-He has been complaining of headaches, relieved by Tylenol and as needed oxy.
-Reports that he has not had a bowel movement in 2 days, spoke to nursing about giving as needed bowel regimen.
Objective Data
-
Labs:
Laboratory Results
12/24/24
08:13
WBC 8.4
Hgb 13.4
Hct 40.4
Plt Count 195
Sodium 133 L
Potassium 3.9
Chloride 105
Carbon Dioxide 24
BUN 23 H
Creatinine 0.6 L
Glucose 96
Calcium 9.1
Vital Signs:
Vital Signs
Temp Pulse Resp BP Pulse Ox
98 F 82 20 135/73 97
12/24/24 16:27 12/24/24 17:32 12/24/24 16:27 12/24/24 17:49 12/24/24 16:27
I&O
12/23/24 12/24/24 12/25/24
06:59 06:59 06:59
Intake Total 780 / 780 0 / 0 950 / 950
Output Total 425 / 425 950 / 950
Balance 355 / 355 -950 / -950 950 / 950
Review of Systems
-
Constitutional: Reports No Symptoms
EENT: Reports Other (Headache)
Respiratory: Reports No Symptoms
Cardiac: Reports No Symptoms
Abdomen/GI: Reports No Symptoms
Genitourinary: Reports No Symptoms
Musculoskeletal: Reports Muscle Weakness
Skin: Reports No Symptoms
Neuro: Reports No Symptoms
Endocrine: Reports No Symptoms
Hematologic / Lymphatic: Reports No Symptoms
Allergy / Immunology: Reports No Symptoms
Physical Exam
-
General: Well Developed and Conversant
HEENT: Normocephalic and Other (Traumatic with healing bruise over right eyebrow)
Respiratory: Clear to Auscultation and Non Labored Respirations
Cardiac: S1/S2 and Irregular Rhythm
GI: Soft, Nontender and Nondistended
Musculoskeletal: Edema, Right Lower Extrem (Right worse than left)
Skin: Warm and Dry
Neuro: AO x 3
Psych: Calm and Intact Judgement/Insight
[2024-12-24] MEDS: FLOMAX 0.4 MG PO (20:20)
[2024-12-24] MEDS: ZESTRIL 20 MG PO (20:20)
[2024-12-24] MEDS: SENOKOT-S 1 TABLET PO (20:24)
[2024-12-25] VITALS (7 sets, daily range): BP systolic 100–154; BP diastolic 66–104; PULSE 77–90; O2SAT 97
[2024-12-25] MEDS: APRESOLINE IV ×3 (00:27→09:03)
[2024-12-25 08:08] LABS: Hematocrit 40.3 % (39.0-52.0); Hemoglobin 13.8 g/dL (13.0-18.0); Mean Corp Hgb Conc. 34.2 g/dL (33.0-37.0); Mean Corpuscular Volume 85.0 fL (80.0-94.0); Nucleated Red Blood Cells % 0 % (-); Platelet Count 205 10^3/uL (130-400); Red Cell Dist. Width 15.0 % (11.5-14.5)
[2024-12-25 08:30] LABS: Blood Urea Nitrogen 24 mg/dl (9-20); Calcium 9.2 mg/dl (8.4-10.2); Carbon Dioxide 27 mmol/L (22-30); Chloride 105 mmol/L (98-107); Estimated Creatinine Clearance 96 ml/min; Glucose 94 mg/dl (70-99); Potassium 3.9 mmol/L (3.5-5.1); Sodium 135 mmol/L (135-145); eGFR > 60.00
[2024-12-25] MEDS: COREG 3.125 MG PO ×2 (09:01→20:38)
[2024-12-25] MEDS: ELIQUIS 5 MG PO ×2 (09:02→20:37)
[2024-12-25] MEDS: TYLENOL 1000 MG PO ×3 (09:02→23:01)
[2024-12-25] MEDS: ZETIA 10 MG PO (09:02)
[2024-12-25] MEDS: LR 500 IV ×2 (09:40→17:20)
[2024-12-25] MEDS: ROXICODONE 5 MG PO ×2 (10:23→14:23)
--- NOTE | 2024-12-25 12:16 | W.PN.CD ---
Today's Communication / Plan
-
Lasix PRN for 3-5 lb weight gain overnight/in a week
Cont other meds
trend tele
Impression / Plan
-
74 y/o male (cardiology patient of Dr. Duarte) with HTN, HLD, HFpEF, PAF, CAD s/p CABG, and severe with recent TAVR 12/16/24 returns with fall with possible syncope.
Fall with possible syncope:
-he is poor historian, but thinks he may have been dizzy and passed out versus slip and fall. Injuries have been sustained as noted in detail.
-etiology unclear. Echo without effusion. Tele with AFIB (persistent).
-suspect may be due to orthostatic hypotension
-lasix stopped, liberal PO intake
-ambulate as able
-trend tele
Neck trauma
-Neuro surgery consulted.
-eliquis resumed
Severe aortic valve stenosis
-S/P #29 Yang ZAHIRA Resilia TAVR via right transfemoral approach on 12/16/2024.
-Transient LBBB post-op
-Echo 12/22/24: EF 55-60%. Enlarged right ventricular size. Normal right ventricular systolic function. Well seated #29 Zahira S3 Ultra TAVR. Peak/mean gradients across the aortic valve are 9/4 mmHg. No aortic regurgitation is seen. Moderate
tricuspid regurgitation. Estimated pulmonary artery pressure of 20-25 mmHg.
CAD:
-hx CABG
-stopped ASA since on eliquis for A fib
Persistent atrial fibrillation:
-continue Coreg
-Eliquis 5mg bid resumed
HTN:
-BP's elevated, but technically orthostatic so will not adjust meds upward at this time
-continue current meds for now, keep HOB elevated
HFpEF, chronic, stable:
-stop lasix; make prn
Physical Exam
Vital Signs/Labs
Vital Signs
Temp Pulse Resp BP Pulse Ox
98.1 F 85 16 135/82 96
12/25/24 08:30 12/25/24 09:01 12/25/24 08:30 12/25/24 09:01 12/25/24 08:30
12/24/24 12/25/24 12/26/24
06:59 06:59 06:59
Actual Weight 194 lb 6 oz
12/25/24 07:37
12/25/24 07:37
Magnesium 2.0 mg/dl (1.6-2.3) 12/22/24 09:24
Triglycerides 104 mg/dl (10-149) 12/24/24 08:13
LDL Cholesterol, Calc 125 mg/dl 12/24/24 08:13
VLDL Cholesterol, Calc 20 mg/dl (0-30) 12/24/24 08:13
HDL Cholesterol 37 mg/dl 12/24/24 08:13
TSH 2.32 uIU/ml (0.47-4.68) 12/22/24 09:24
12/22/24
09:24
Dgn-L-Xtrbbwppodn Pept 5610
LAB Results
12/22/24
13:53
Troponin I 0.016
Physical Exam
Constitutional: No acute distress
EENT: Anicteric
Cardiovascular: Pedal edema is absent and Rhythm/rate is irregular
Respiratory: Respiratory effort normal
GI: Soft
Neuro/Psych: AO x 3
Data Reviewed
-
Date of Service: December 25, 2024
EKG: Tracing Personally Visualized and interpreted (af)
Echo: Report Reviewed by me
Labs: Labs Reviewed by me
--- NOTE | 2024-12-25 13:09 | CM ---
CM reviewed chart, received call from [employer] with patients insurance- auth for acute rehab has been denied, feel patient is appropriate for halfway care- option for Peer to Peer review to be conducted by 12/27 by 6:00 p.m. - number to call
[phone], ask for post acute care. TT to Resident with update. Patient seen bedside, aware of insurance denial, option for Peer to Peer. CM will continue to follow for all discharge planning needs.
Plan; insurance auth has been denied for acute rehab, will need peer to peer completed by 12/27 6:00 p.m.
[2024-12-25] MEDS: ASPIRIN 325 MG PO (13:24)
--- NOTE | 2024-12-25 14:51 | W.PN.HOSP.TC ---
Addendum entered and electronically signed by Santa West MD 12/25/24 15:15:
I saw and evaluated the patient independently. I reviewed the resident�s note and agree with findings and plan as documented by Dr. Stanley.
GENERAL: well developed, well nourished, male in no apparent distress
HEENT: NC--trauma to right forehead--hard cervical collar in place
HEART: irreg irreg
LUNGS : clear to auscultation bilaterally
ABDOM: soft, nontender, nondistended, + bowel sounds
EXT: no cyanosis, clubbing--3+ pitting edema right LE
NEUROLOGIC: grossly intact
Syncope x 2 after recent TAVR placement--resulting in traumatic mechanical fall--had near syncope day of discharge from and went to ED later in day for same (pt does not remember)--etiology most likely orthostatic hypotension from intolerance to
new meds post TAVR --apprec cards, CT surgery-- orthostatics positive, added midodrine but supine BP high--PT/OT-- TSH & cortisol WNL--stopped diuretics--cont Eliquis for now--PT--no fluid restriction--insurance denied acute rehab--?SNF
New occipital condyle fracture/Left rib pain/Right sided forehead hematoma--all from fall--CT head and CT cervical spine in ED 12/21/2024 were remarkable for a left-sided occipital condyle fracture which is being managed by neurosurgery with a collar
and outpatient follow-up plan. Per neurosurgery, is no need for surgical intervention-- Recommended hard collar immobilization follow-up as outpatient in 4 to 6 weeks-- CXR and rib x-rays show no fractures--pt c/o headache--tried to give IVF bolus
but friend Ilene at bedside refused 12/24--received it today
chronic afib/flutter--cont coreg and Eliquis
HLD--cont zetia--check lipid panel
Essential hypertension--BP running high but aggressive treatment limited by orthostasis-- changed lisinopril to HS-carvedilol/asa
BPH--most likely-- Continue tamsulosin for now but can contribute to hypotension--transitioned to night
Vitamin deficiency supplements- Patient placed on low-cholesterol diet-- Holding patient's home supplements of CoQ 10, probiotic, vitamin B12, vitamin C, vitamin D3, magnesium glycinate
DVT proph--Eliquis
CODE STATUS: Full code
Original Note:
Today's Communication/Plan
-
Midodrine 2.5 mg twice daily 6 AM and 2 PM
Continue to encourage p.o. intake and consider maintenance IV fluids if needed
Continue to encourage ambulation with PT and nursing
Abdominal binder, ELEN stockings for orthostatic blood pressures
Aspirin 325 mg for continued head pain despite Tylenol and Oxy
Assessment / Plan
Assessment / Plan
Juan A is a 74 yo male with PMH of CAD s/p SUPRIYA to OM3 12/2014, then CABG 11/[address] Banuelos, persistent A fib (started after recent TAVR on 12/16/2024), chronic HFpEF, moderate/severe s/p TAVR here on 12/16/24 and new since TAVR medication of
Lasix, moderate/severe TR, HTN, hyperlipidemia, and lymphedema here for workup after his second fall since discharge from TAVR and found to have a left-sided occipital condyle fracture. Given his cardiac history and recent procedure, he was admitted
to telemetry for further monitoring with cardiology, CTS, NSG following.� Per review of cardiology's note, he reported a significant weight loss and poor diet in the last month secondary to tooth extraction in preparation for his valve replacement.�
When asked, Juan A reconfirmed this.� WET END SUPERVISOR and nutrition were consulted for further recs.� WET END SUPERVISOR recommended soft, bite-size, thin liquid diet which she was started on on 12/23/2024.� Repeat head CT on 12/23/2024 was negative for any acute intracranial
abnormality.� Given his weakness and low appetite, physiatry was consulted along with PT and OT.� See subjective for full history.� Workup initially encompassed a broad differential, however now favors a combination of etiologies most likely poor
nutrition due to tooth extraction, new medications lowering blood pressure (Lasix), dehydration, and orthostatic changes.
#Syncope s/p recent TAVR on 12/16/2024
#Multiple falls of unknown etiology, likely orthostatic
#Orthostatic hypotension
Given his recent cardiac procedure, there is high concern for a cardiac cause for his syncope/falls.� On the differential are conduction abnormalities, valve dysfunction, arrhythmias (possibly RVR episodes with his chronic A-fib), tamponade, and
DC.� EKG in the ED as well as repeat EKG had no significant changes compared to priors.� There were no acute events on telemetry.� Cardiology and cardiothoracic surgery were consulted and recommend holding Eliquis and repeating head CT on 12/23/2024,
which was negative for acute intracranial abnormality.� Eliquis was restarted on 12/23/2024 and per cardiology aspirin 81 mg was discontinued as Juan A has not had any CAD events in over a year.�As such, the etiology of his symptoms most likely favors
a combination of noncardiac cause such as vasovagal and orthostatic syncope, syncope due to changes in med (recently added Lasix), and electrolyte imbalances. Initially, he was unable to complete orthostatic vital signs without feeling very weak per
nursing.� The multiple set of orthostatic vitals taken are noted above in vitals and reflect orthostatic etiology.�PE, stroke or TIA, and infection were ruled out based on workup. On 12/22/2024, his friend Ilene was present for rounds and stated that
he has been more weak, losing weight, and is likely not taking care of himself well, which could all be contributing to his weakness, lightheadedness, and then resultant falls.� We agree with this.� PT and physiatry are consulted for further
discharge and rehab recs.
- Cardiology, CTS following
-- Eliquis held 12/22/[address] 12/23/2024.�
-- Restarted Eliquis 12/23/2024.
-- Continue to hold Lasix 20 mg
- CBC, BMP, troponins, BNP all unremarkable
- UA, TSH, and cortisol unremarkable
- PT consulted, recommending home health
- Repeat echo 12/22/2024 without significant changes from priors
- PT, physiatry consulted
-- Per physiatry on 12/24/2024, recommending SNF, ELEN stockings, abdominal binder, and changing Flomax and lisinopril from day to night doses.
-- He was approved to go to [facility] but insurance denied it. There will be a [id number] meeting on 12/27/2024 for placement.
-- 2 time dose of midodrine 5 mg on 12/24/2024 with slight improvement in orthostatic pressures; he refused fluid bolus.
-- S/p IV LR fluid bolus 12/25/2024.
- Start midodrine 2.5 mg twice daily 6 AM and 2 PM
- Encourage p.o. intake; dietitian consulted for patient education.
#Nonocclusive thrombus, new
BLE DVU 2 on 12/22/2024 showed nonocclusive thrombus involving the left common femoral vein and the saphenofemoral junction.
- Eliquis 5 mg p.o. twice daily
#New occipital condyle fracture
#Left rib pain
#Right sided forehead hematoma
#Headache, resolving
CT head and CT cervical spine in ED 12/21/2024 were remarkable for a left-sided occipital condyle fracture which is being managed by neurosurgery with a collar and outpatient follow-up plan.� Per neurosurgery, there is no need for surgical
intervention.� Juan A continues to complain about discomfort related to the hard [place] collar, especially around his jaw and chest, stating that he is unable to chew or breathe with comfortably.� OT and [employer] equipment request consults were placed
for a better fitting and comfortable collar.
- Neurosurgery consulted
-- Recommend hard collar immobilization follow-up as outpatient in 4 to 6 weeks
- OT and [employer] equipment request consult for collar fitting
--Nursing to keep adding padding to [place] collar currently. We were told that all other colors would be more uncomfortable.
- Chest x-ray not concerning for rib fracture
- Acetaminophen 650 mg p.o. every 4 hours as needed for pain control
--ISO more pain, increased pain regimen: Acetaminophen 1000 mg 3 times daily and oxycodone 5 mg p.o. every 4 hours as needed for severe pain.
- Tylenol 1000 mg p.o. 3 times daily and oxycodone 5 mg every 4 hours as needed for headache
--On 12/25/2024, started aspirin 325 mg daily for pain control. Reassess and reevaluate on 12/26/2024.
#CAD s/p CABG x 3
#Essential hypertension
Blood pressure in the ED was 180s over 110s.� He received a one-time drip of IV hydralazine 10 mg.� We will continue home medications and consult cardiology for further recs.� Of note, he was started on Lasix 20 mg daily at recent discharge.� We
will be holding this given concern for orthostatic hypotension causing falls and syncope.
- Hold Lasix 20 mg daily until orthostatic vitals are back
-Continue home carvedilol 3.125 mg p.o. twice daily
- DC aspirin 81 mg daily per cardiology as Juan A has not had an acute CAD event in over a year
-Follow-up lipid panel
-Continue lisinopril 20 mg p.o. daily -hold if systolic blood pressure is less than 100 or heart rate is less than 60
#BPH
- Continue tamsulosin 0.4 mg p.o. daily
#Vitamin deficiency
- Patient placed on low-cholesterol diet
- Holding patient's home supplements of CoQ 10, probiotic, vitamin B12, vitamin C, vitamin D3, magnesium glycinate
CODE STATUS: Full code
Anticipated Discharge: > 48 hours (Pending clinical improvement and [id number])
Subjective/Interval History
-
Date of Service: December 25, 2024
Juan A is a 74 yo male with PMH of CAD s/p SUPRIYA to OM3 12/2014, then CABG 11/[address] Banuelos, persistent A fib (was on eliquis but stopped it and restarting today), chronic HFpEF, moderate/severe s/p TAVR here on 12/16/24 and new med of Lasix,
moderate/severe TR, HTN, hyperlipidemia, and lymphedema here for workup after his second fall since discharge from TAVR and found to have a left-sided occipital condyle fracture. Given his cardiac history and recent procedure, he was admitted to
telemetry for further monitoring with cardiology, CTS, and NSG following. See H&P for full history.� Thus far, the most likely etiology of his falls is lightheadedness due to orthostatic changes.
- Overnight, he was ordered for ELEN stockings and an abdominal binder. This morning, his abdominal binder was in on but his stockings were. However he still continued to have dizziness, lightheadedness, weakness, and fatigue when standing up from
bed. We will continue to get orthostatic blood pressures.
- He complains of 7/10 pain in the back of his head s/p fall. His Tylenol and oxycodone have not been the best at relieving this pain. We ordered aspirin 325 mg daily. Will see if this helps.
- His p.o. intake remains poor despite encouragement. He got a 500 cc LR bolus this morning and was able to sit in the chair.
- Scheduled his midodrine as midodrine 2.5 mg twice daily at 6 AM and 2 PM.
- Plan for peer to peer per case management for [facility] on Friday.
Objective Data
-
Labs:
Laboratory Results
12/25/24
07:37
WBC 9.7
Hgb 13.8
Hct 40.3
Plt Count 205
Sodium 135
Potassium 3.9
Chloride 105
Carbon Dioxide 27
BUN 24 H
Creatinine 0.7
Glucose 94
Calcium 9.2
Vital Signs:
Vital Signs
Temp Pulse Resp BP Pulse Ox
97.5 F 90 18 123/79 96
12/25/24 11:17 12/25/24 14:18 12/25/24 11:17 12/25/24 14:18 12/25/24 11:17
I&O
12/24/24 12/25/24 12/26/24
06:59 06:59 06:59
Intake Total 0 / 0 950 / 950
Output Total 950 / 950 750 / 750
Balance -950 / -950 200 / 200
Review of Systems
-
History Source: Patient
Constitutional: Reports Weakness
EENT: Reports Other (Bruising over the left eyebrow secondary to fall)
Cardiac: Reports Other (Lightheadedness)
Skin: Reports Other (Generalized bruising from fall)
Physical Exam
-
General: No Apparent Distress, Comfortable, Conversant and Other (Laying in bed with head elevated, hands on head, claims he tried to stand up with nurse and feels very dizzy and also has 7/10 pain in the back of his head. He states feeling
demoralized. )
HEENT: Moist Mucous Membranes, PERRLA and Other (Hard collar in place per neurosurgery. Traumatic head, bruising over left eyebrow.)
Respiratory: Clear to Auscultation and Non Labored Respirations
Cardiac: S1/S2, Irregular Rhythm and Other (On telemetry)
GI: Soft, Nontender and Nondistended
Musculoskeletal: No Clubbing, No Cyanosis and No Edema
Skin: Warm and Dry
Psych: Calm and Intact Judgement/Insight
[2024-12-25] MEDS: SENOKOT-S 1 TABLET PO (15:42)
[2024-12-25] MEDS: MIRALAX 17 GRAMS PO (15:42)
[2024-12-25] MEDS: DILAUDID 0.25 MG IV (16:29)
[2024-12-25] MEDS: FLOMAX 0.4 MG PO (20:38)
[2024-12-25] MEDS: ZESTRIL 20 MG PO (23:08)
[2024-12-25] MEDS: LR 1000 IV (23:10)
[2024-12-25] MEDS: LR IV (23:24)
[2024-12-26] VITALS (10 sets, daily range): BP systolic 105–168; BP diastolic 70–101; PULSE 75–104; O2SAT 98
[2024-12-26 07:36] LABS: Hematocrit 40.2 % (39.0-52.0); Hemoglobin 13.5 g/dL (13.0-18.0); Mean Corp Hgb Conc. 33.6 g/dL (33.0-37.0); Mean Corpuscular Volume 85.9 fL (80.0-94.0); Nucleated Red Blood Cells % 0 % (-); Platelet Count 204 10^3/uL (130-400); Red Cell Dist. Width 15.0 % (11.5-14.5)
[2024-12-26] MEDS: TYLENOL 1000 MG PO ×3 (07:41→21:24)
[2024-12-26] MEDS: ZETIA 10 MG PO (07:41)
[2024-12-26] MEDS: COREG 3.125 MG PO ×2 (07:42→19:54)
[2024-12-26] MEDS: ELIQUIS 5 MG PO ×2 (07:43→19:54)
[2024-12-26 07:52] LABS: Blood Urea Nitrogen 23 mg/dl (9-20); Calcium 9.1 mg/dl (8.4-10.2); Carbon Dioxide 25 mmol/L (22-30); Chloride 105 mmol/L (98-107); Estimated Creatinine Clearance 112 ml/min; Glucose 94 mg/dl (70-99); Potassium 4.0 mmol/L (3.5-5.1); Sodium 136 mmol/L (135-145); eGFR > 60.00
[2024-12-26] MEDS: SENOKOT-S 1 TABLET PO (10:40)
[2024-12-26] MEDS: MIRALAX 17 GRAMS PO (10:41)
[2024-12-26] MEDS: LR 1000 IV ×2 (10:43→23:51)
--- NOTE | 2024-12-26 11:56 | W.PN.HOSP.TC ---
Addendum entered and electronically signed by Santa West MD 12/26/24 15:40:
I saw and evaluated the patient independently. I reviewed the resident�s note and agree with findings and plan as documented by Dr. Stanley.
GENERAL: well developed, well nourished, male in no apparent distress
HEENT: NC--trauma to right forehead--hard cervical collar in place
HEART: irreg irreg
LUNGS : clear to auscultation bilaterally
ABDOM: soft, nontender, nondistended, + bowel sounds
EXT: no cyanosis, clubbing--3+ pitting edema right LE
NEUROLOGIC: grossly intact
Syncope x 2 after recent TAVR placement--resulting in traumatic mechanical fall--had near syncope day of discharge from and went to ED later in day for same (pt does not remember)--etiology most likely orthostatic hypotension from intolerance to
new meds post TAVR --apprec cards, CT surgery-- orthostatics positive, added midodrine but supine BP high--PT/OT-- TSH & cortisol WNL--stopped diuretics--cont Eliquis for now--PT--no fluid restriction--insurance denied acute rehab, peer to peer to
be done Friday--?SNF--adjusting midodrine, BP meds, teds, and abdominal binder--getting some IVF as PO intake not great
New occipital condyle fracture/Left rib pain/Right sided forehead hematoma--all from fall--CT head and CT cervical spine in ED 12/21/2024 were remarkable for a left-sided occipital condyle fracture which is being managed by neurosurgery with a collar
and outpatient follow-up plan. Per neurosurgery, is no need for surgical intervention-- Recommended hard collar immobilization follow-up as outpatient in 4 to 6 weeks-- CXR and rib x-rays show no fractures--pt c/o headache--head CT has been
neg--await neurology input, hesitant to give more narcotics with orthostatics
chronic afib/flutter--cont coreg and Eliquis
HLD--cont zetia-- lipid panel with elevated LDL
Essential hypertension--BP running high but aggressive treatment limited by orthostasis-- changed lisinopril to HS--carvedilol/asa
BPH--most likely-- Continue tamsulosin for now but can contribute to hypotension--transitioned to night
Vitamin deficiency supplements- Patient placed on low-cholesterol diet-- Holding patient's home supplements of CoQ 10, probiotic, vitamin B12, vitamin C, vitamin D3, magnesium glycinate
acute DVT left leg--already on Eliquis but would not consider a failure as likely was being held prior to TAVR--OK for teds stocking 48 hours after acute clot
DVT proph--Eliquis
CODE STATUS: Full code
Original Note:
Today's Communication/Plan
-
Tizanidine HCl 2 mg p.o. 3 times daily for head pain
Home lisinopril 20 mg switch to 10 mg at bedtime
Continues to be orthostatic and symptomatic when standing, continue to monitor and consider increasing afternoon midodrine dose if needed
Continue maintenance IV fluids
Assessment / Plan
Assessment / Plan
Juan A is a 74 yo male with PMH of CAD s/p SUPRIYA to OM3 12/2014, then CABG 11/[address] Banuelos, persistent A fib (started after recent TAVR on 12/16/2024), chronic HFpEF, moderate/severe s/p TAVR here on 12/16/24 and new since TAVR medication of
Lasix, moderate/severe TR, HTN, hyperlipidemia, and lymphedema here for workup after his second fall since discharge from TAVR and found to have a left-sided occipital condyle fracture. Given his cardiac history and recent procedure, he was admitted
to telemetry for further monitoring with cardiology, CTS, NSG following.� Per review of cardiology's note, he reported a significant weight loss and poor diet in the last month secondary to tooth extraction in preparation for his valve replacement.�
When asked, Juan A reconfirmed this.� SOLAR DESIGNER/INSTALLER and nutrition were consulted for further recs.� SOLAR DESIGNER/INSTALLER recommended soft, bite-size, thin liquid diet which she was started on on 12/23/2024.� Repeat head CT on 12/23/2024 was negative for any acute intracranial
abnormality.� Given his weakness and low appetite, physiatry was consulted along with PT and OT.� See subjective for full history.� Workup initially encompassed a broad differential, however now favors a combination of etiologies most likely poor
nutrition due to tooth extraction, new medications lowering blood pressure (Lasix), dehydration, and orthostatic changes. He was given an LR bolus on 12/24/2024 which seemed to help, and started on maintenance fluids 12/26/2024 with improvement in
orthostatic status.
#Syncope s/p recent TAVR on 12/16/2024
#Multiple falls of unknown etiology, likely orthostatic
#Orthostatic hypotension
Given his recent cardiac procedure, there is high concern for a cardiac cause for his syncope/falls.� On the differential are conduction abnormalities, valve dysfunction, arrhythmias (possibly RVR episodes with his chronic A-fib), tamponade, and
MD.� EKG in the ED as well as repeat EKG had no significant changes compared to priors.� There were no acute events on telemetry.� Cardiology and cardiothoracic surgery were consulted and recommend holding Eliquis and repeating head CT on 12/23/2024,
which was negative for acute intracranial abnormality.� Eliquis was restarted on 12/23/2024 and per cardiology aspirin 81 mg was discontinued as Juan A has not had any CAD events in over a year.�As such, the etiology of his symptoms most likely favors
a combination of noncardiac cause such as vasovagal and orthostatic syncope, syncope due to changes in med (recently added Lasix), and electrolyte imbalances. Initially, he was unable to complete orthostatic vital signs without feeling very weak per
nursing.� The multiple set of orthostatic vitals taken are noted above in vitals and reflect orthostatic etiology.�PE, stroke or TIA, and infection were ruled out based on workup. On 12/22/2024, his friend Ilene was present for rounds and stated that
he has been more weak, losing weight, and is likely not taking care of himself well, which could all be contributing to his weakness, lightheadedness, and then resultant falls.� We agree with this.� PT and physiatry are consulted for further
discharge and rehab recs.
- Cardiology, CTS following
-- Eliquis held 12/22/[address] 12/23/2024.�
-- Restarted Eliquis 12/23/2024.
-- Continue to hold Lasix 20 mg
- CBC, BMP, troponins, BNP all unremarkable
- UA, TSH, and cortisol unremarkable
- PT consulted, recommending home health
- Repeat echo 12/22/2024 without significant changes from priors
- PT, physiatry consulted
-- Per physiatry on 12/24/2024, recommending SNF, ELEN stockings, abdominal binder, and changing Flomax and lisinopril from day to night doses.
-- He was approved to go to [facility] but insurance denied it. There will be a [id number] meeting on 12/27/2024 for placement there versus SNF. Follow-up.
-- 2 time dose of midodrine 5 mg on 12/24/2024 with slight improvement in orthostatic pressures; he refused fluid bolus.
-- Maintenance IV LR 12/26/2024 s/p IV LR fluid bolus 12/25/2024.
- Continue midodrine 2.5 mg twice daily 6 AM and 2 PM
--If he continues to have symptomatic orthostatic changes, consider increasing the afternoon dose to 5 mg.
- Encourage p.o. intake; dietitian consulted for patient education.
#Nonocclusive thrombus, new
BLE DVU 2 on 12/22/2024 showed nonocclusive thrombus involving the left common femoral vein and the saphenofemoral junction.
- Eliquis 5 mg p.o. twice daily
#New occipital condyle fracture
#Left rib pain
#Right sided forehead hematoma
#Headache, resolving
CT head and CT cervical spine in ED 12/21/2024 were remarkable for a left-sided occipital condyle fracture which is being managed by neurosurgery with a collar and outpatient follow-up plan.� Per neurosurgery, there is no need for surgical
intervention.� Juan A continues to complain about discomfort related to the hard [place] collar, especially around his jaw and chest, stating that he is unable to chew or breathe with comfortably.� OT and [place] equipment request consults were placed
for a better fitting and comfortable collar.
- Neurosurgery consulted
-- Recommend hard collar immobilization follow-up as outpatient in 4 to 6 weeks
- OT and [facility] equipment request consult for collar fitting
--Nursing to keep adding padding to [place] collar currently. We were told that all other colors would be more uncomfortable.
- Chest x-ray not concerning for rib fracture
- Acetaminophen 650 mg p.o. every 4 hours as needed for pain control
--ISO more pain, increased pain regimen: Acetaminophen 1000 mg 3 times daily and oxycodone 5 mg p.o. every 4 hours as needed for severe pain.
- Tylenol 1000 mg p.o. 3 times daily and oxycodone 5 mg every 4 hours as needed for headache
--On 12/25/2024, started aspirin 325 mg daily for pain control. This did not help. IV Dilaudid 0.25 mg every 4 as needed helps.
-- Per neuro, started tizanidine HCL 2 mg p.o. 3 times daily. Reassess 12/27/2024.
#CAD s/p CABG x 3
#Essential hypertension
Blood pressure in the ED was 180s over 110s.� He received a one-time drip of IV hydralazine 10 mg.� We will continue home medications and consult cardiology for further recs.� Of note, he was started on Lasix 20 mg daily at recent discharge.� We
will be holding this given concern for orthostatic hypotension causing falls and syncope.
- Hold Lasix 20 mg daily until orthostatic vitals are back
-Continue home carvedilol 3.125 mg p.o. twice daily
- DC home aspirin 81 mg daily per cardiology as Juan A has not had an acute CAD event in over a year
- Lipid panel confirming need for ongoing home medications
- Home lisinopril 20 mg p.o. daily changed to lisinopril 10 mg at night
-hold if systolic blood pressure is less than 100 or heart rate is less than 60
#BPH
- Continue tamsulosin 0.4 mg p.o. daily
#Vitamin deficiency
- Patient placed on low-cholesterol diet
- Holding patient's home supplements of CoQ 10, probiotic, vitamin B12, vitamin C, vitamin D3, magnesium glycinate
#Constipation
- Bowel regimen as needed
CODE STATUS: Full code
Anticipated Discharge: Within 24 hours (Pending case management placement and resolution of symptomatic orthostatic)
Subjective/Interval History
-
Date of Service: December 26, 2024
Juan A is a 74 yo male with PMH of CAD s/p SUPRIYA to OM3 12/2014, then CABG 11/[address] Banuelos, persistent A fib (was on eliquis but stopped it and restarting today), chronic HFpEF, moderate/severe s/p TAVR here on 12/16/24 and new med of Lasix,
moderate/severe TR, HTN, hyperlipidemia, and lymphedema here for workup after his second fall since discharge from TAVR and found to have a left-sided occipital condyle fracture. Given his cardiac history and recent procedure, he was admitted to
telemetry for further monitoring with cardiology, CTS, and NSG following. See H&P for full history.� Thus far, the most likely etiology of his falls is lightheadedness due to orthostatic changes.
- This morning, he's feeling and looking a lot better s/p mIVF. However, still symptomatic with orthostatics. Lisinopril 20mg qpm --> Lisinopril 10mg qpm.
- He's still having pain in the back of the head, neuro initially thought about nerve block, however after seeing the patient, recommended tizanidine HCL 2 mg p.o. 3 times daily.
- [facility]wait[facility] vs [facility] decision pending peer to peer per CM tomorrow.
Objective Data
-
Labs:
Laboratory Results
12/26/24
06:52
WBC 7.7
Hgb 13.5
Hct 40.2
Plt Count 204
Sodium 136
Potassium 4.0
Chloride 105
Carbon Dioxide 25
BUN 23 H
Creatinine 0.6 L
Glucose 94
Calcium 9.1
Vital Signs:
Vital Signs
Temp Pulse Resp BP Pulse Ox
97.7 F 72 16 137/84 97
12/26/24 11:00 12/26/24 11:00 12/26/24 11:00 12/26/24 11:00 12/26/24 11:00
I&O
12/25/24 12/26/24 12/27/24
06:59 06:59 06:59
Intake Total 950 / 950 2420 / 2420
Output Total 750 / 750 1100 / 1100
Balance 200 / 200 1320 / 1320
Review of Systems
-
All other systems: Reviewed and negative
Constitutional: Reports Weakness
Skin: Reports Other (Bruising related to fall)
Physical Exam
-
General: No Apparent Distress, Comfortable, Conversant and Other (Sitting up in chair with a hard collar and maintenance IV fluids, Ilene at bedside)
HEENT: Normocephalic, Moist Mucous Membranes and Other (And hard neck collar)
Respiratory: Clear to Auscultation and Non Labored Respirations
Cardiac: S1/S2 and Irregular Rhythm (Known A-fib)
GI: Soft, Nontender and Nondistended
Musculoskeletal: No Clubbing, No Cyanosis and Edema, Right Lower Extrem (Right greater than left)
Neuro: AO x 3 and No Motor Deficits
Psych: Calm and Intact Judgement/Insight
--- NOTE | 2024-12-26 12:01 | W.PN.CD ---
Today's Communication / Plan
-
Lasix PRN for 3-5 lb weight gain overnight/in a week
Cont other meds
trend tele
we will sign off pls call with questions
Impression / Plan
-
74 y/o male (cardiology patient of Dr. Duarte) with HTN, HLD, HFpEF, PAF, CAD s/p CABG, and severe with recent TAVR 12/16/24 returns with fall with possible syncope.
Fall with possible syncope:
-he is poor historian, but thinks he may have been dizzy and passed out versus slip and fall. Injuries have been sustained as noted in detail.
-etiology unclear. Echo without effusion. Tele with AFIB (persistent).
-suspect may be due to orthostatic hypotension
-lasix stopped, liberal PO intake
-ambulate as able
-trend tele
Neck trauma
-Neuro surgery consulted.
-eliquis resumed
Severe aortic valve stenosis
-S/P #29 Yang ZAHIRA Resilia TAVR via right transfemoral approach on 12/16/2024.
-Transient LBBB post-op
-Echo 12/22/24: EF 55-60%. Enlarged right ventricular size. Normal right ventricular systolic function. Well seated #29 Zahira S3 Ultra TAVR. Peak/mean gradients across the aortic valve are 9/4 mmHg. No aortic regurgitation is seen. Moderate
tricuspid regurgitation. Estimated pulmonary artery pressure of 20-25 mmHg.
CAD:
-hx CABG
-stopped ASA since on eliquis for A fib
Persistent atrial fibrillation:
-continue Coreg
-Eliquis 5mg bid resumed
HTN:
-BP's elevated, but technically orthostatic so will not adjust meds upward at this time
-continue current meds for now, keep HOB elevated
HFpEF, chronic, stable:
-stop lasix; make prn
Physical Exam
Vital Signs/Labs
Vital Signs
Temp Pulse Resp BP Pulse Ox
97.7 F 72 16 137/84 97
12/26/24 11:00 12/26/24 11:00 12/26/24 11:00 12/26/24 11:00 12/26/24 11:00
12/25/24 12/26/24 12/27/24
06:59 06:59 06:59
Actual Weight 194 lb 6 oz
12/26/24 06:52
12/26/24 06:52
Magnesium 2.0 mg/dl (1.6-2.3) 12/22/24 09:24
Triglycerides 104 mg/dl (10-149) 12/24/24 08:13
LDL Cholesterol, Calc 125 mg/dl 12/24/24 08:13
VLDL Cholesterol, Calc 20 mg/dl (0-30) 12/24/24 08:13
HDL Cholesterol 37 mg/dl 12/24/24 08:13
TSH 2.32 uIU/ml (0.47-4.68) 12/22/24 09:24
12/22/24
09:24
Qdk-[id number] Pept 5610
Physical Exam
Constitutional: No acute distress and Comfortable
EENT: Anicteric
Cardiovascular: Pedal edema is absent and Rhythm/rate is irregular
Respiratory: Respiratory effort normal
GI: Soft
Neuro/Psych: AO x 3
Data Reviewed
-
Date of Service: December 26, 2024
EKG: Tracing Personally Visualized and interpreted (af)
Medical Tests (PFT, Pathology etc): Report Reviewed by me
Labs: Labs Reviewed by me
[2024-12-26] MEDS: ZANAFLEX 2 MG PO ×2 (15:23→21:24)
[2024-12-26] MEDS: ROXICODONE 5 MG PO ×2 (16:08→19:54)
--- NOTE | 2024-12-26 16:18 | CON.NEURO ---
Neuro Assessment/Plan
Assessment
74 year old man, occipital neuralgia due to acute fracture, patient reports symptoms fluctuating in severity but overall improving and he appears comfortable
he declined occipital nerve block
wants to try muscle relaxants, will rx Zanaflex 2 mg TID
afib/flutter/acute DVT on Eliquis
Consultation
Order
Date of Consultation: 12/26/24
Requesting Provider: Jaden
Reason for Consult: headache
Subjective/Objective
Subjective Data
Date of Service: December 26, 2024
consult for headache.
74 year old man recent TAVR, syncope x2, suspected orthostatic hypotension due to intolerance of new meds after procedure. orthostatics positive and started on midodrine. found to have traumatic LEFT occipital condyle fracture from the falls.
Headache mostly occipital, sometimes radiating in occipital distribution, tends to be worse on the RIGHT
patient reports symptoms tolerable/improving
Objective Data
Vital Signs
Temp Pulse Resp BP Pulse Ox
36.7 C 77 16 118/80 96
12/26/24 15:00 12/26/24 15:00 12/26/24 15:00 12/26/24 15:00 12/26/24 15:00
Lab Results
12/26/24 06:52
12/26/24 06:52
Sodium 136 mmol/L (135-145) 12/26/24 06:52
Potassium 4.0 mmol/L (3.5-5.1) 12/26/24 06:52
BUN 23 mg/dl (9-20) H 12/26/24 06:52
Glucose 94 mg/dl (70-99) 12/26/24 06:52
Calcium 9.1 mg/dl (8.4-10.2) 12/26/24 06:52
Iho-K-Cgqfloyofso Pept 5610 pg/ml 12/22/24 09:24
LDL Cholesterol, Calc 125 mg/dl 12/24/24 08:13
Patient Allergies
No Known Allergies Allergy (Verified 12/18/24 14:36)
Medications
-
Active Medications
Generic Name Dose Route Start Last Admin
Trade Name Freq PRN Reason Stop Dose Admin
Acetaminophen 1,000 mg 12/24/24 08:00 12/26/24 15:22
Acetaminophen 500 Mg Tablet PO 01/21/25 07:59 1,000 mg
TID KELSEA Administration
Apixaban 5 mg 12/21/24 20:08 12/26/24 07:43
Apixaban (Eliquis) 5 Mg Tablet PO 01/18/25 20:07 5 mg
BID KELSEA Administration
Bisacodyl 10 mg 12/21/24 20:08
Bisacodyl 10 Mg Rectal Suppository RECTAL 01/18/25 20:07
[id number] PRN
constipation
Carvedilol 3.125 mg 12/21/24 20:08 12/26/24 07:42
Carvedilol 3.125 Mg Tablet PO 01/18/25 20:07 3.125 mg
BID KELSEA Administration
Ezetimibe 10 mg 12/21/24 20:08 12/26/24 07:41
Ezetimibe (Zetia) 10 Mg Tablet PO 01/18/25 20:07 10 mg
DAILY KELSEA Administration
Hydromorphone HCl 0.25 mg 12/25/24 16:18 12/25/24 16:29
Hydromorphone 0.25 Mg/0.5 Ml Syringe IV 01/08/25 16:17 0.25 mg
Q4HPRN PRN Administration
persistent head pain 2/2 fract
Lactated Ringer's 1,000 mls @ 100 mls/hr 12/25/24 23:15 12/26/24 10:43
Lr IV 1,000 mls
.Q10H KELSEA Administration
Lisinopril 10 mg 12/26/24 22:00
Lisinopril 20 Mg Tablet PO 01/21/25 21:59
HS KELSEA
Midodrine 2.5 mg 12/25/24 14:00 12/26/24 13:08
Midodrine 2.5 Mg Tablet PO 2.5 mg
BID@0600,1400 KELSEA Administration
Oxycodone HCl 5 mg 12/23/24 17:42 12/26/24 16:08
Oxycodone 5 Mg Regular Release Tablet PO 01/06/25 17:41 5 mg
Q4HPRN PRN Administration
SEVERE pain
Polyethylene Glycol 17 grams 12/21/24 20:08 12/26/24 10:41
Polyethylene Glycol Powder 17 Grams Packet PO 01/18/25 20:07 17 grams
DAILYPRN PRN Administration
constipation
Senna/Docusate Sodium 1 tablet 12/21/24 20:08 12/26/24 10:40
Docusate W/Senna (Stella-Colace) Tablet PO 01/18/25 20:07 1 tablet
BIDPRN PRN Administration
constipation
Sodium Chloride 0 flush 12/21/24 17:00 12/21/24 16:37
Sodium Chloride 0.9% (Flush) Syringe IV 01/18/25 16:59 1 flush
PER PROTOCOL KELSEA Administration
Tamsulosin HCl 0.4 mg 12/24/24 20:00 12/25/24 20:38
Tamsulosin 0.4 Mg Capsule PO 01/21/25 19:59 0.4 mg
DAILY@2000 KELSEA Administration
Tizanidine HCl 2 mg 12/26/24 16:00 12/26/24 15:23
Tizanidine 2 Mg Tablet PO 01/23/25 15:59 2 mg
TID KELSEA Administration
Home Medications
�Medication �Instructions �Recorded
ezetimibe 10 mg tablet 10 mg PO DAILY High cholesterol 05/09/21
apixaban 5 mg tablet (Eliquis) 5 mg PO BID Blood clot 12/16/24
prevention/tx #60 tabs
aspirin 81 mg tablet 81 mg PO DAILY Blood clot 12/16/24
prevention/tx #0 tabs
carvedilol 3.125 mg tablet 3.125 mg PO BID Heart 12/16/24
disease/condition #0 tabs
lisinopril 20 mg tablet 20 mg PO DAILY Blood pressure #0 12/16/24
tabs
tamsulosin 0.4 mg capsule 0.4 mg PO DAILY BPH #0 caps 12/16/24
acetaminophen 325 mg tablet 650 mg (2 x 325 mg) PO Q4HPRN PRN 12/17/24
HERNANDEZ, mild pain, or fever >101F #0
tabs
Lactobac no.2-Bifidobac no.1-S. 1 cap PO DAILY Gastrointestinal 12/21/24
thermo 112.5 billion cell capsule Issue
(Visbiome)
ascorbic acid (vitamin C) 500 mg 500 mg PO DAILY Supplement 12/21/24
tablet (Vitamin C)
cholecalciferol (vitamin D3) 25 25 mcg PO DAILY Supplement 12/21/24
mcg (1,000 unit) tablet (Vitamin
D3)
coQ10 (ubiquinol) 100 mg capsule 100 mg PO DAILY Supplement 12/21/24
cyanocobalamin (vitamin B-12) 1,000 mcg PO DAILY Supplement 12/21/24
1,000 mcg tablet
furosemide 40 mg tablet (Lasix) 40 mg PO DAILY Fluid 12/21/24
Retention/Swelling
[2024-12-26] MEDS: FLOMAX 0.4 MG PO (19:54)
[2024-12-26] MEDS: ZESTRIL 10 MG PO (21:24)
[2024-12-27 03:45] VITALS: BP 133/74
[2024-12-27 05:58] VITALS: BMI 28.5
--- NOTE | 2024-12-27 06:34 | PTCARENOTE ---
06:00 Midodrine held per [employer]AT MATE due to BP 147/90 and HR 91.
[2024-12-27 07:38] VITALS: BP 143/82
[2024-12-27] MEDS: COREG 3.125 MG PO ×2 (08:49→21:38)
[2024-12-27] MEDS: ZANAFLEX 2 MG PO ×3 (08:50→21:36)
[2024-12-27] MEDS: ELIQUIS 5 MG PO ×2 (08:50→21:38)
[2024-12-27] MEDS: ZETIA 10 MG PO (08:50)
[2024-12-27] MEDS: TYLENOL 1000 MG PO ×3 (08:51→21:36)
--- NOTE | 2024-12-27 09:45 | W.PN.HOSP.TC ---
Today's Communication/Plan
-
Continue on IV fluids, encourage p.o. intake, and working with PT.
Reconsult OT and [employer] equipment for hard collar padding.
Follow-up with case management about DC plan, most likely tomorrow.
Assessment / Plan
Assessment / Plan
Juan A is a 74 yo male with PMH of CAD s/p SUPRIYA to OM3 12/2014, then CABG 11/[address] Banuelos, persistent A fib (started after recent TAVR on 12/16/2024), chronic HFpEF, moderate/severe s/p TAVR here on 12/16/24 and new since TAVR medication of
Lasix, moderate/severe TR, HTN, hyperlipidemia, and lymphedema here for workup after his second fall since discharge from TAVR and found to have a left-sided occipital condyle fracture. Given his cardiac history and recent procedure, he was admitted
to telemetry for further monitoring with cardiology, CTS, NSG following.� Per review of cardiology's note, he reported a significant weight loss and poor diet in the last month secondary to tooth extraction in preparation for his valve replacement.�
When asked, Juan A reconfirmed this.� FAMILY RESOURCE MANAGEMENT SPECIALIST and nutrition were consulted for further recs.� FAMILY RESOURCE MANAGEMENT SPECIALIST recommended soft, bite-size, thin liquid diet which she was started on on 12/23/2024.� Repeat head CT on 12/23/2024 was negative for any acute intracranial
abnormality.� Given his weakness and low appetite, physiatry was consulted along with PT and OT.� See subjective for full history.� Workup initially encompassed a broad differential, however now favors a combination of etiologies most likely poor
nutrition due to tooth extraction, new medications lowering blood pressure (Lasix), dehydration, and orthostatic changes. He was given an LR bolus on 12/24/2024 which seemed to help, and started on maintenance fluids 12/26/2024 with improvement in
orthostatic status.
#Syncope s/p recent TAVR on 12/16/2024
#Multiple falls of unknown etiology, likely orthostatic
#Orthostatic hypotension
Given his recent cardiac procedure, there is high concern for a cardiac cause for his syncope/falls.� On the differential are conduction abnormalities, valve dysfunction, arrhythmias (possibly RVR episodes with his chronic A-fib), tamponade, and
[place].� EKG in the ED as well as repeat EKG had no significant changes compared to priors.� There were no acute events on telemetry.� Cardiology and cardiothoracic surgery were consulted and recommend holding Eliquis and repeating head CT on 12/23/2024,
which was negative for acute intracranial abnormality.� Eliquis was restarted on 12/23/2024 and per cardiology aspirin 81 mg was discontinued as Juan A has not had any CAD events in over a year.�As such, the etiology of his symptoms most likely favors
a combination of noncardiac cause such as vasovagal and orthostatic syncope, syncope due to changes in med (recently added Lasix), and electrolyte imbalances. Initially, he was unable to complete orthostatic vital signs without feeling very weak per
nursing.� The multiple set of orthostatic vitals taken are noted above in vitals and reflect orthostatic etiology.�PE, stroke or TIA, and infection were ruled out based on workup. On 12/22/2024, his friend Ilene was present for rounds and stated that
he has been more weak, losing weight, and is likely not taking care of himself well, which could all be contributing to his weakness, lightheadedness, and then resultant falls.� We agree with this.� PT and physiatry are consulted for further
discharge and rehab recs.
- Cardiology, CTS following
-- Eliquis held 12/22/[address] 12/23/2024.�
-- Restarted Eliquis 12/23/2024.
-- Continue to hold Lasix 20 mg
- CBC, BMP, troponins, BNP all unremarkable
- UA, TSH, and cortisol unremarkable
- PT consulted, recommending home health
- Repeat echo 12/22/2024 without significant changes from priors
- PT, physiatry consulted
-- Per physiatry on 12/24/2024, recommending SNF, ELEN stockings, abdominal binder, and changing Flomax and lisinopril from day to night doses.
-- He was approved to go to [place] but insurance denied it. Awaiting case management report for placement after peer to peer to [place] versus [facility].
-- 2 time dose of midodrine 5 mg on 12/24/2024 with slight improvement in orthostatic pressures; he refused fluid bolus.
-- Maintenance IV LR 12/26/2024 s/p IV LR fluid bolus 12/25/2024.
- Continue midodrine 2.5 mg twice daily 6 AM and 2 PM
--If he continues to have symptomatic orthostatic changes, consider increasing the afternoon dose to 5 mg.
- Encourage p.o. intake; dietitian consulted for patient education.
#Nonocclusive thrombus, new
BLE DVU 2 on 12/22/2024 showed nonocclusive thrombus involving the left common femoral vein and the saphenofemoral junction.
- Eliquis 5 mg p.o. twice daily
#New occipital condyle fracture
#Left rib pain
#Right sided forehead hematoma
#Headache, resolving
CT head and CT cervical spine in ED 12/21/2024 were remarkable for a left-sided occipital condyle fracture which is being managed by neurosurgery with a collar and outpatient follow-up plan.� Per neurosurgery, there is no need for surgical
intervention.� Juan A continues to complain about discomfort related to the hard [place] collar, especially around his jaw and chest, stating that he is unable to chew or breathe with comfortably.� OT and [employer] equipment request consults were placed
for a better fitting and comfortable collar.
- Neurosurgery consulted
-- Recommend hard collar immobilization follow-up as outpatient in 4 to 6 weeks
- OT and [employer] equipment request consult for collar fitting: Bumped 12/27/2024.
--Nursing to keep adding padding to [place] collar currently. We were told that all other colors would be more uncomfortable.
- Chest x-ray not concerning for rib fracture
- Acetaminophen 650 mg p.o. every 4 hours as needed for pain control
--ISO more pain, increased pain regimen: Acetaminophen 1000 mg 3 times daily and oxycodone 5 mg p.o. every 4 hours as needed for severe pain.
- Tylenol 1000 mg p.o. 3 times daily and oxycodone 5 mg every 4 hours as needed for headache
--On 12/25/2024, started aspirin 325 mg daily for pain control. This did not help. IV Dilaudid 0.25 mg every 4 as needed helps.
-- Per neuro, started tizanidine HCL 2 mg p.o. 3 times daily.
#CAD s/p CABG x 3
#Essential hypertension
Blood pressure in the ED was 180s over 110s.� He received a one-time drip of IV hydralazine 10 mg.� We will continue home medications and consult cardiology for further recs.� Of note, he was started on Lasix 20 mg daily at recent discharge.� We
will be holding this given concern for orthostatic hypotension causing falls and syncope.
- Hold Lasix 20 mg daily until orthostatic vitals are back
-Continue home carvedilol 3.125 mg p.o. twice daily
- DC home aspirin 81 mg daily per cardiology as Juan A has not had an acute CAD event in over a year
- Lipid panel confirming need for ongoing home medications
- Home lisinopril 20 mg p.o. daily changed to lisinopril 10 mg at night
-hold if systolic blood pressure is less than 100 or heart rate is less than 60
#BPH
- Continue tamsulosin 0.4 mg p.o. daily
#Vitamin deficiency
- Patient placed on low-cholesterol diet
- Holding patient's home supplements of CoQ 10, probiotic, vitamin B12, vitamin C, vitamin D3, magnesium glycinate
#Constipation
- Bowel regimen as needed
CODE STATUS: Full code
Anticipated Discharge: Within 24 hours (Pending case management update.)
Subjective/Interval History
-
Date of Service: December 27, 2024
- NAEON.
- Peer to Peer today for placement to [place], otherwise [facility] for which will need authorization per case management.
- This morning, he is sitting up in bed waiting for his orthostatics to be checked. He overall feels more energized, and has been able to ambulate better than days prior. He says he feels mild improvement in his symptoms, which are usually worse
as soon as he wakes up, this morning. Encouraged him to keep working with PT and taking p.o. intake.
-He is still having a lot of discomfort around hard collar. Will reconsult [facility] equipment and OT for recommendations.
Objective Data
-
Vital Signs:
Vital Signs
Temp Pulse Resp BP Pulse Ox
97.6 F 79 16 143/82 97
12/27/24 07:38 12/27/24 07:38 12/27/24 07:38 12/27/24 07:38 12/27/24 07:38
I&O
12/26/24 12/27/24 12/28/24
06:59 06:59 06:59
Intake Total 2420 / 2420 3120 / 3120
Output Total 1100 / 1100 2950 / 2950
Balance 1320 / 1320 170 / 170
Review of Systems
-
History Source: Patient
All other systems: Reviewed and negative
Constitutional: Reports Weakness (Improving)
EENT: Reports No Symptoms Reported (Bruising above right eyebrow, healing since fall.)
Physical Exam
-
General: No Apparent Distress, Comfortable and Other (Sitting up in bed, getting his hair braided by the nurse.)
HEENT: Normocephalic and Moist Mucous Membranes
Respiratory: Clear to Auscultation and Non Labored Respirations
Cardiac: S1/S2 and Irregular Rhythm (Known A-fib)
GI: Soft, Nontender and Nondistended
Musculoskeletal: No Clubbing, No Cyanosis and Edema, Right Lower Extrem (Right leg greater than left)
Skin: Warm and Dry
Psych: Calm and Intact Judgement/Insight
[2024-12-27] MEDS: LR 1000 IV (10:12)
[2024-12-27 10:17] LABS: Hematocrit 37.7 % (39.0-52.0); Hemoglobin 12.4 g/dL (13.0-18.0); Mean Corp Hgb Conc. 32.9 g/dL (33.0-37.0); Mean Corpuscular Volume 86.7 fL (80.0-94.0); Nucleated Red Blood Cells % 0 % (-); Platelet Count 200 10^3/uL (130-400); Red Cell Dist. Width 15.3 % (11.5-14.5)
--- NOTE | 2024-12-27 10:31 | CM ---
CM reviewed chart, patient seen bedside, discussed peer to peer to be completed today, information provided to Dr. Gandhi. CM discussed if peer to peer denied, SNF referrals sent as backup- accepting facilities include [facility],
[facility]. Patient will require insurance auth for SNF. CM will continue to follow for all discharge planning needs.
Plan; peer to peer review today, SNF as backup will need auth
[2024-12-27 10:35] LABS: ALT (SGPT) 18 U/L (0-50); AST (SGOT) 23 U/L (17-59); Albumin 3.3 g/dl (3.5-5.0); Alkaline Phosphatase 71 U/L (38-126); Blood Urea Nitrogen 19 mg/dl (9-20); Calcium 8.9 mg/dl (8.4-10.2); Carbon Dioxide 26 mmol/L (22-30); Chloride 107 mmol/L (98-107); Estimated Creatinine Clearance 96 ml/min; Glucose 98 mg/dl (70-99); Magnesium 2.0 mg/dl (1.6-2.3); Potassium 4.5 mmol/L (3.5-5.1); Sodium 136 mmol/L (135-145); Total Protein 5.8 g/dl (6.3-8.2); eGFR > 60.00
[2024-12-27] MEDS: ROXICODONE 5 MG PO ×2 (10:52→19:32)
[2024-12-27 11:06] VITALS: BP 116/75; BP 127/77; BP 131/79; BP 146/74; PULSE 87; PULSE 91
--- NOTE | 2024-12-27 12:46 | W.PN.UPDATE ---
Update Note
Progress Note Update
I saw and evaluated the patient. I reviewed the resident�s note and agree with findings and plan as documented in the resident�s note.
Patient reports intermittent mild headache that is overall improved. Denies chest pain or shortness of breath.
Gen: NAD, AAOx3.
Eyes: EOMI, PERRLA, no scleral icterus.
Neck: C-collar in place
CV: irreg/irreg, +S1/S2, no m/r/g.
Resp: CTAB, no rales, wheezes, or rhonchi.
Abd: +BS, soft, NT, ND
Skin: No rashes.
Neuro: CN 2-12 intact, non-focal.
Psych: Normal mood and affect.
Syncope:
-2 episodes after recent TAVR placement resulting in traumatic mechanical fall
-had near syncope day of discharge from and went to ED later in day for same (pt does not remember)
-etiology most likely orthostatic hypotension from intolerance to new meds post TAVR
-seen by cards and CT surgery
-orthostatic VS POS positive initially
-TSH/cortisol normal
-midodrine started
-diuretics stopped
-orthostatic VS NEG today
New occipital condyle fracture/Left rib pain/Right sided forehead hematoma:
-all traumatic from fall
-CT head and CT cervical spine in ED 12/21/2024 were remarkable for a left-sided occipital condyle fracture which is being managed by neurosurgery with a collar and outpatient follow-up plan. Per neurosurgery, is no need for surgical intervention.
Recommended hard collar immobilization follow-up as outpatient in 4 to 6 weeks. CXR and rib x-rays show no fractures
Headache:
-CT brain: No acute intracranial abnormality noted
-neuro saw in c/s, feels h/a due to occipital neuralgia due to acute fracture
-declined occipital nerve block
-Zanaflex PRN
Other problems:
Chronic afib/flutter: cont Coreg/Eliquis
HLD: cont zetia
Essential HTN: tx limited by orthostasis, cont ACEi/BB
BPH (likely): cont Flomax (HS as it can contribute to orthostasis)
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
FULL/Eliquis
Remains medically cleared for discharge.
[2024-12-27 15:20] VITALS: BP 159/97
[2024-12-27 21:31] VITALS: BP 118/65
[2024-12-27] MEDS: FLOMAX 0.4 MG PO (21:37)
[2024-12-27] MEDS: ZESTRIL 10 MG PO (21:37)
[2024-12-27 22:59] VITALS: BP 104/64; BP 108/71; BP 121/70; PULSE 71; PULSE 78
[2024-12-28 07:17] LABS: Hematocrit 37.4 % (39.0-52.0); Hemoglobin 12.2 g/dL (13.0-18.0); Mean Corp Hgb Conc. 32.6 g/dL (33.0-37.0); Mean Corpuscular Volume 87.8 fL (80.0-94.0); Nucleated Red Blood Cells % 0 % (-); Platelet Count 197 10^3/uL (130-400); Red Cell Dist. Width 15.4 % (11.5-14.5)
[2024-12-28 07:45] VITALS: BP 149/87
[2024-12-28 08:12] LABS: ALT (SGPT) 16 U/L (0-50); AST (SGOT) 21 U/L (17-59); Albumin 3.2 g/dl (3.5-5.0); Alkaline Phosphatase 67 U/L (38-126); Blood Urea Nitrogen 18 mg/dl (9-20); Calcium 9.1 mg/dl (8.4-10.2); Carbon Dioxide 29 mmol/L (22-30); Chloride 107 mmol/L (98-107); Estimated Creatinine Clearance 96 ml/min; Glucose 96 mg/dl (70-99); Potassium 4.3 mmol/L (3.5-5.1); Sodium 136 mmol/L (135-145); Total Protein 5.8 g/dl (6.3-8.2); eGFR > 60.00
[2024-12-28] MEDS: ZANAFLEX 2 MG PO ×2 (09:23→15:49)
[2024-12-28] MEDS: ZETIA 10 MG PO (09:23)
[2024-12-28] MEDS: COREG 3.125 MG PO (09:23)
[2024-12-28] MEDS: ELIQUIS 5 MG PO (09:23)
[2024-12-28] MEDS: TYLENOL 1000 MG PO ×2 (09:24→15:49)
[2024-12-28 09:38] VITALS: BP 136/89; BP 149/92; BP 160/96; PULSE 79; PULSE 86; PULSE 91
--- NOTE | 2024-12-28 09:43 | W.PN.UPDATE ---
Update Note
Progress Note Update
I saw and evaluated the patient. I reviewed the resident�s note and agree with findings and plan as documented in the resident�s note.
Patient reports mild headache. Denies chest pain or shortness of breath.
Gen: NAD, AAOx3.
Eyes: EOMI, PERRLA, no scleral icterus.
Neck: C-collar in place
CV: RRR, +S1/S2, no m/r/g.
Resp: CTAB anteriorly, no rales, wheezes, or rhonchi.
Abd: remains +BS, soft, NT, ND
Skin: No rashes.
Neuro: CN 2-12 intact, non-focal.
Psych: Normal mood and affect.
Syncope:
-2 episodes after recent TAVR placement resulting in traumatic mechanical fall
-had near syncope day of discharge from and went to ED later in day for same (pt does not remember)
-etiology most likely orthostatic hypotension from intolerance to new meds post TAVR
-seen by cards and CT surgery
-orthostatic VS POS positive initially
-TSH/cortisol normal
-midodrine started
-diuretics stopped
-orthostatic VS NEG 12/27, technically POS today but asymptomatic, standing SBP 130s
New occipital condyle fracture/Left rib pain/Right sided forehead hematoma:
-all traumatic from fall
-CT head and CT cervical spine in ED 12/21/2024 were remarkable for a left-sided occipital condyle fracture which is being managed by neurosurgery with a collar and outpatient follow-up plan. Per neurosurgery, is no need for surgical intervention.
Recommended hard collar immobilization follow-up as outpatient in 4 to 6 weeks. CXR and rib x-rays show no fractures
Headache:
-CT brain: No acute intracranial abnormality noted
-neuro saw in c/s, feels h/a due to occipital neuralgia due to acute fracture
-declined occipital nerve block
-Zanaflex PRN
Other problems:
Chronic afib/flutter: cont Coreg/Eliquis
HLD: cont zetia
Essential HTN: tx limited by orthostasis, cont ACEi/BB
BPH (likely): cont Flomax (HS as it can contribute to orthostasis)
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
FULL/Eliquis
Remains medically cleared for discharge.
Total time spent on d/c = 31 min. This included today's physical exam, progress note, review of laboratory and diagnostic data, preparation of discharge documents and prescriptions, and discussions about the pt's hospital course and discharge plan
with the patient and other pediatrician/medical doctor involved in the patient's care.
[2024-12-28 10:27] VITALS: BMI 28.5
--- NOTE | 2024-12-28 11:02 | CM ---
CM reviewed chart, peer to peer completed, auth approved for [facility], auth #[id number], approval date today 12/28, last day for patient to admit 01/02 by midnight. Number to call for updates at [facility]- [phone]. CM spoke with Felecia at
[facility], auth information provided. Update to patients primary contact, Ilene. Patient seen bedside, aware of discharge to [facility]. IMM verbally reviewed, provided with copy, placed in chart. CM will continue to follow for all discharge planning needs.
Plan; discharge to [facility]
Report: [phone]
--- NOTE | 2024-12-28 11:50 | W.PN.HOSP.TC ---
Today's Communication/Plan
-
Plan to go to [place] today.
Assessment / Plan
Assessment / Plan
Juan A is a 74 yo male with PMH of CAD s/p SUPRIYA to OM3 12/2014, then CABG 11/[address] Banuelos, persistent A fib (started after recent TAVR on 12/16/2024), chronic HFpEF, moderate/severe s/p TAVR here on 12/16/24 and new since TAVR medication of
Lasix, moderate/severe TR, HTN, hyperlipidemia, and lymphedema here for workup after his second fall since discharge from TAVR and found to have a left-sided occipital condyle fracture. Given his cardiac history and recent procedure, he was admitted
to telemetry for further monitoring with cardiology, CTS, NSG following.� Per review of cardiology's note, he reported a significant weight loss and poor diet in the last month secondary to tooth extraction in preparation for his valve replacement.�
When asked, Juan A reconfirmed this.� UNDERBASTER and nutrition were consulted for further recs.� UNDERBASTER recommended soft, bite-size, thin liquid diet which she was started on on 12/23/2024.� Repeat head CT on 12/23/2024 was negative for any acute intracranial
abnormality.� Given his weakness and low appetite, physiatry was consulted along with PT and OT.� See subjective for full history.� Workup initially encompassed a broad differential, however now favors a combination of etiologies most likely poor
nutrition due to tooth extraction, new medications lowering blood pressure (Lasix), dehydration, and orthostatic changes. He was given an LR bolus on 12/24/2024 which seemed to help, and started on maintenance fluids 12/26/2024 with improvement in
orthostatic status. On 12/27/2024, after peer to peer, Juan A was approved to go to [place] for inpatient rehab.
#Syncope s/p recent TAVR on 12/16/2024
#Multiple falls of unknown etiology, likely orthostatic
#Orthostatic hypotension
Given his recent cardiac procedure, there is high concern for a cardiac cause for his syncope/falls.� On the differential are conduction abnormalities, valve dysfunction, arrhythmias (possibly RVR episodes with his chronic A-fib), tamponade, and
[place].� EKG in the ED as well as repeat EKG had no significant changes compared to priors.� There were no acute events on telemetry.� Cardiology and cardiothoracic surgery were consulted and recommend holding Eliquis and repeating head CT on 12/23/2024,
which was negative for acute intracranial abnormality.� Eliquis was restarted on 12/23/2024 and per cardiology aspirin 81 mg was discontinued as Juan A has not had any CAD events in over a year.�As such, the etiology of his symptoms most likely favors
a combination of noncardiac cause such as vasovagal and orthostatic syncope, syncope due to changes in med (recently added Lasix), and electrolyte imbalances. Initially, he was unable to complete orthostatic vital signs without feeling very weak per
nursing.� The multiple set of orthostatic vitals taken are noted above in vitals and reflect orthostatic etiology.�PE, stroke or TIA, and infection were ruled out based on workup. On 12/22/2024, his friend Ilene was present for rounds and stated that
he has been more weak, losing weight, and is likely not taking care of himself well, which could all be contributing to his weakness, lightheadedness, and then resultant falls.� We agree with this.� PT and physiatry are consulted for further
discharge and rehab recs. CBC, BMP, troponins, BNP, UA,TSH, and cortisol all unremarkable.
- Cardiology, CTS following
-- Eliquis held 12/22/[address] 12/23/2024.�
-- Restarted Eliquis 12/23/2024.
-- Continue to hold Lasix 20 mg: DC Lasix 20 mg.
- PT consulted, recommending home health
- Repeat echo 12/22/2024 without significant changes from priors
- PT, physiatry consulted on 12/24/2024, recommending SNF, ELEN stockings, abdominal binder, and changing Flomax and lisinopril from day to night doses.
-- Approved to go to [place] for inpatient rehab with plan to discharge today.
-- 2 time dose of midodrine 5 mg on 12/24/2024 with slight improvement in orthostatic pressures.
-- Maintenance IV LR 12/26/2024 to 12/27/2024 s/p IV LR fluid bolus 12/25/2024 with improvement.
- DC midodrine 2.5 mg twice daily 6 AM and 2 PM: Prescribed midodrine 2.5 mg as needed daily for SBP less than 130 on discharge.
- Encourage p.o. intake; dietitian consulted for patient education.
#Nonocclusive thrombus, new
BLE DVU 2 on 12/22/2024 showed nonocclusive thrombus involving the left common femoral vein and the saphenofemoral junction.
- Eliquis 5 mg p.o. twice daily
#New occipital condyle fracture
#Left rib pain
#Right sided forehead hematoma
#Headache, resolving
CT head and CT cervical spine in ED 12/21/2024 were remarkable for a left-sided occipital condyle fracture which is being managed by neurosurgery with a collar and outpatient follow-up plan.� Per neurosurgery, there is no need for surgical
intervention.� Juan A continues to complain about discomfort related to the hard [place] collar, especially around his jaw and chest, stating that he is unable to chew or breathe with comfortably.� OT and [employer] equipment request consults were placed
for a better fitting and comfortable collar.
- Neurosurgery consulted
-- Recommend hard collar immobilization follow-up as outpatient in 4 to 6 weeks
- OT and [employer] equipment request consult for collar fitting: Bumped 12/27/2024.
--Nursing to keep adding padding to [place] collar currently. We were told that all other colors would be more uncomfortable.
- Chest x-ray not concerning for rib fracture
- Acetaminophen 650 mg p.o. every 4 hours as needed for pain control
--ISO more pain, increased pain regimen: Acetaminophen 1000 mg 3 times daily and oxycodone 5 mg p.o. every 4 hours as needed for severe pain.
- Tylenol 1000 mg p.o. 3 times daily and oxycodone 5 mg every 4 hours as needed for headache
--On 12/25/2024, started aspirin 325 mg daily for pain control. This did not help. IV Dilaudid 0.25 mg every 4 as needed helps.
-- Per neuro, started tizanidine HCL 2 mg p.o. 3 times daily.
#CAD s/p CABG x 3
#Essential hypertension
Blood pressure in the ED was 180s over 110s.� He received a one-time drip of IV hydralazine 10 mg.� We will continue home medications and consult cardiology for further recs.� Of note, he was started on Lasix 20 mg daily at recent discharge.� We
will be holding this given concern for orthostatic hypotension causing falls and syncope.
- Hold Lasix 20 mg daily until orthostatic vitals are back
-Continue home carvedilol 3.125 mg p.o. twice daily
- DC home aspirin 81 mg daily per cardiology as Juan A has not had an acute CAD event in over a year
- Lipid panel confirming need for ongoing home medications
- Home lisinopril 20 mg p.o. daily changed to lisinopril 10 mg at night
-hold if systolic blood pressure is less than 100 or heart rate is less than 60
#BPH
- Continue tamsulosin 0.4 mg p.o. daily
#Vitamin deficiency
- Patient placed on low-cholesterol diet
- Holding patient's home supplements of CoQ 10, probiotic, vitamin B12, vitamin C, vitamin D3, magnesium glycinate
#Constipation
- Bowel regimen as needed
CODE STATUS: Full code
Anticipated Discharge: Today (Moving to inpatient [facility].)
Subjective/Interval History
-
Date of Service: December 28, 2024
- No acute events overnight.
- Approved for [facility] this morning.
- Juan A says that he still feels the same as yesterday, 'slowly getting better.' He is having good oral intake, not requiring IV fluids.
Objective Data
-
Labs:
Laboratory Results
12/28/24
06:50
WBC 6.6
Hgb 12.2 L
Hct 37.4 L
Plt Count 197
Sodium 136
Potassium 4.3
Chloride 107
Carbon Dioxide 29
BUN 18
Creatinine 0.7
Glucose 96
Calcium 9.1
Total Bilirubin 0.8
AST 21
ALT 16
Alkaline Phosphatase 67
Vital Signs:
Vital Signs
Temp Pulse Resp BP Pulse Ox
97.8 F 76 16 149/87 98
12/28/24 07:45 12/28/24 09:23 12/28/24 07:45 12/28/24 09:23 12/28/24 07:45
I&O
12/27/24 12/28/24 12/29/24
06:59 06:59 06:59
Intake Total 3120 / 3120 2450 / 2450
Output Total 2950 / 2950 2625 / 2625
Balance 170 / 170 -175 / -175
Review of Systems
-
All other systems: Reviewed and negative
Physical Exam
-
General: No Apparent Distress, Comfortable, Conversant and Other (Sitting up in bed, doing puzzles and watching TV. Awake and alert, looks well rested today.)
HEENT: Normocephalic, Moist Mucous Membranes and Other (Well-healing hematoma over right forehead.)
Respiratory: Clear to Auscultation and Non Labored Respirations
Cardiac: Regular Rhythm and S1/S2
GI: Soft, Nontender and Nondistended
Musculoskeletal: No Clubbing and No Cyanosis
Neuro: AO x 3
Psych: Calm and Intact Judgement/Insight
[2024-12-28] MEDS: ROXICODONE 5 MG PO (14:03)
[2024-12-28 15:35] VITALS: BP 125/84
--- NOTE | 2024-12-28 16:21 | W.DCSUMMARY ---
Discharge Summary
Discharge Data
Date of Admission: 12/21/24
Date of Discharge: 12/28/24
-
Pending Results: No
Hospital Course
Discharging Physician : Deisy Stanley MD/BELGICA
Disposition : [facility]
Principal Discharge diagnosis : Syncope and fall secondary to symptomatic orthostatic and new left-sided occipital condyle fracture
Hospital Course : Mr. Lechuga is a 74 yo male with PMH of CAD s/p SUPRIYA to OM3 12/2014, then CABG 11/2020, persistent A fib (on Eliquis, started 12/16/2024), chronic HFpEF, moderate/severe s/p TAVR 5 days ago on 12/16/24, moderate/severe TR, HTN,
hyperlipidemia, and lymphedema who presented to the ED on 12/21/2024 after a fall. In in his TAVR postop course, he was noted to have a near syncope event postop day 2 however was discharged on the same day the same day 12/18 as the event around 9 AM.
He returned to the ED at 2 PM the same day after having a syncopal event at home and a fall. In the ED at that time, CT surgery and cardiology team were in agreement that he can be managed outpatient. Interestingly, the patient does not recall
this event nor visit to the ED. It was also noted that his Echo on 12/17/2024 showed an EF of 55 to 60% and the TAVR was well-seated.� Of note, he was found to have a new left bundle branch block transiently after TAVR, but it resolved and he never
needed pacing.� His medications at time of discharge from his TAVR included Eliquis (new), Coreg, Zetia, Lasix (new), Zestril, Flomax. He has been taking his medications routinely since discharge. In the ED this admission, Mr. Lechuga stated this
fall was different than his previous falls. He said that he slipped on something in his home while washing breakfast dishes around 7:30 AM. He fell backwards and hit the back of his head and his left side on the ground. He then got himself up and
went and laid in bed, which is when he felt some pain in his neck and on his left side and decided to come to the ED. He denied vision changes, blacking out, feeling sweaty or having chills prior to the fall, chest pain, diet changes, and shortness
of breath. He also reported some urinary frequency but UA was unremarkable. In the ED, CT head and CT cervical spine was remarkable for a left-sided occipital condyle fracture. Neurosurgery was consulted and recommended a hard collar and
outpatient follow-up in 4 to 6 weeks. Repeat echo and head CT the following day were unremarkable.
Throughout hospital course, which was 12/21/2024 to 12/28/2024, he was worked up extensively for his lightheadedness, syncope, and weakness with cardiology, neurosurgery, neurology, physiatry, and PT following. Orthostatics were positive and he was
symptomatic, with worse symptoms in the morning when standing. As such, ultimately, his presentation favored a combination of etiologies most likely poor nutrition due to tooth extraction, new medications lowering blood pressure (Lasix),
dehydration, and orthostatic changes. Lasix was held and his medications that caused hypotension were switched to every evening. He was managed with abdominal binder, ELEN stockings, midodrine as needed, PT, maintenance IV fluids, and p.o. intake
per [employer] recs. Per PT, he was deemed to be a the most appropriate candidate for inpatient [facility]. He was approved to transfer there on 12/28/2024. He will follow-up with cardiology, neurology, and his PCP outpatient. His hospital course was
complicated by a new nonocclusive thrombus seen on DVU on 12/22/2024. There was no treatment initiated with this as he was recently started on Eliquis.
Important imaging findings :
CT cervical spine 12/21/2024: There is a lucency through the medial aspect of the left occipital condyle tearing for fracture. There is slight straightening of the cervical spine with multilevel severe generative changes.
Head CT 12/21/2024: No acute intracranial abnormality noted. 5 mm right frontotemporal scalp hematoma. Moderate atrophy most pronounced with anterior temporal lobes.
Peripheral vascular ultrasound 12/22/2024: Exam is positive for nonocclusive thrombus involving the left common femoral vein and the saphenofemoral junction.
Echo 12/22/2024:
Normal left ventricular size and function. Normal regional wall motion. Left
ventricular ejection fraction is 55-60% by visual assessment. Diastolic
function not assess.
Enlarged right ventricular size. Normal right ventricular systolic function.
Mitral sclerosis without stenosis. Mild mitral regurgitation.
Well seated #29 Zahira S3 Ultra TAVR. Peak/mean gradients across the aortic
valve are 9/4 mmHg. No aortic regurgitation is seen.
Moderate tricuspid regurgitation. Estimated pulmonary artery pressure of 20-25
mmHg. Assuming a right atrial pressure of 3 mmHg.
Normal pericardium without effusion.
Compared to prior study dated 12/17/2024, there is no significant change
Discharge Plan
-
Patient Disposition: Acute Rehab Facility
Discharge Diagnosis/Procedures: Symptomatic Orthostatic
Falls 2/2 Orthostatic changes
Left-sided occipital condyle fracture
Nonocclusive thrombus involving the left common femoral vein and the saphenofemoral junction.
Condition: Good
Diet: Low Cholesterol
Activity: With assistance and As tolerated
Driving Restrictions: As prior to admission
Bathing Restrictions: None
Others Tests: per cardiology and neurosurgery
Referrals:
Kandis Partida CRNP [Specified Professional Personl, Cardiology] - 01/07/25 10:00 am
Referral Note: Follow-up regarding orthostatics and med changes.
Sudha Fagan MD [Active, Neurosurgery] - in four to six weeks
Referral Note: Follow up for left superior occipital condyle fracture in 4-6 weeks.
UNKNOWN - PT DOES,NOT KNOW [Family Provider] - in less than 1 week
Referral Note: Follow up with your PCP regarding this hospital stay
Prescriptions:
New
polyethylene glycol 3350 17 gram Powder In Packet
17 g PO DAILYPRN PRN (Reason: constipation) 30 Days Qty: 30 0RF
tamsulosin 0.4 mg Capsule
0.4 mg PO DAILY@1999 30 Days Qty: 30 0RF
midodrine 2.5 mg Tablet
2.5 mg PO DAILYPRN PRN (Reason: SBP less than 130) 30 Days Qty: 30 0RF
lisinopril 20 mg Tablet
10 mg PO HS 30 Days Qty: 0 0RF
sennosides-docusate sodium 8.6-50 mg Tablet
1 tab PO BIDPRN PRN (Reason: constipation) 30 Days Qty: 0 0RF
acetaminophen [Tylenol Extra Strength] 500 mg Tablet
1,000 mg PO TID 30 Days Qty: 0 0RF
tizanidine 2 mg Tablet
2 mg PO TIDPRN PRN (Reason: headache) 30 Days Qty: 6 0RF
Continued
ezetimibe 10 MG tablet
10 mg PO DAILY
carvedilol 3.125 mg Tablet
3.125 mg PO BID Qty: 0 0RF
Eliquis 5 MG tablet
5 mg PO BID Qty: 60 11RF
cyanocobalamin (vitamin B-12) 1,000 mcg Tablet
1,000 mcg PO DAILY 30 Days Qty: 30 0RF
ascorbic acid (vitamin C) [Vitamin C] 500 mg Tablet
500 mg PO DAILY 30 Days Qty: 30 0RF
aspirin 81 mg Tablet
81 mg PO DAILY 30 Days Qty: 30 0RF
cholecalciferol (vitamin D3) [Vitamin D3] 25 mcg (1,000 unit) Tablet
25 mcg PO DAILY 30 Days Qty: 30 0RF
Visbiome 112.5 billion cell Capsule
1 cap PO DAILY 30 Days Qty: 30 0RF
coQ10 (ubiquinol) 100 mg Capsule
100 mg PO DAILY 30 Days Qty: 30 0RF
Discontinued
tamsulosin 0.4 mg Capsule
0.4 mg PO DAILY Qty: 0 0RF
lisinopril 20 mg Tablet
20 mg PO DAILY Qty: 0 0RF
acetaminophen 325 mg Tablet
650 mg PO Q4HPRN PRN (Reason: HERNANDEZ, mild pain, or fever >101F) Qty: 0 0RF
furosemide [Lasix] 40 mg Tablet
40 mg PO DAILY
Discharge Orders:
Discharge Patient (As Directed); Ordered 12/28/24
Ordered By: Oswald Wen
Discharge Date and Time
Print Language: TOGOLESE
== END 2024-12-28 16:47 | DRG 86 ==
LOC: 4 WEST ACU 16:27
PROVIDERS: Physician Assistant; ADMITTING PHYSICIAN Internal Medicine; ATTENDING PHYSICIAN Internal Medicine; CONSULT PHYSICIAN Internal Medicine Cardiovascular Disease; CONSULT PHYSICIAN Physical Medicine & Rehabilitation; CONSULT PHYSICIAN Psychiatry & Neurology Clinical Neurophysiology; EMERGENCY PHYSICIAN Emergency Medicine; OTHER PHYSICIAN Thoracic Surgery (Cardiothoracic Vascular Surgery)
DX: S02.113A Unspecified occipital condyle fracture, initial encounter for closed fracture (principal); I48.19 Other persistent atrial fibrillation; I50.32 Chronic diastolic (congestive) heart failure; I48.92 Unspecified atrial flutter; I95.1 Orthostatic hypotension; I11.0 Hypertensive heart disease with heart failure; I25.10 Atherosclerotic heart disease of native coronary artery without angina pectoris; I89.0 Lymphedema, not elsewhere classified; Z95.1 Presence of aortocoronary bypass graft; Z95.2 Presence of prosthetic heart valve; E78.00 Pure hypercholesterolemia, unspecified; Z95.5 Presence of coronary angioplasty implant and graft; I07.1 Rheumatic tricuspid insufficiency; W01.0XXA Fall on same level from slipping, tripping and stumbling without subsequent striking against object, initial encounter; N40.0 Benign prostatic hyperplasia without lower urinary tract symptoms; E56.9 Vitamin deficiency, unspecified; J44.9 Chronic obstructive pulmonary disease, unspecified; F12.90 Cannabis use, unspecified, uncomplicated; F17.210 Nicotine dependence, cigarettes, uncomplicated; Z79.01 Long term (current) use of anticoagulants; Z79.899 Other long term (current) drug therapy; Z79.82 Long term (current) use of aspirin; Z86.73 Personal history of transient ischemic attack (TIA), and cerebral infarction without residual deficits; K59.00 Constipation, unspecified; E66.811 Obesity, class 1; Z68.28 Body mass index [BMI] 28.0-28.9, adult; I25.2 Old myocardial infarction; M54.81 Occipital neuralgia; Z83.3 Family history of diabetes mellitus; Z86.718 Personal history of other venous thrombosis and embolism; Z22.322 Carrier or suspected carrier of Methicillin resistant Staphylococcus aureus
CPT/HCPCS: 70450; 71045; 72125; 80048; 80053; 80061; 81003; 81015; 82533; 83735; 83880; 84443; 84484; 85025; 92610; 93005; 93308; 93321; 93325; 93922; 93925; 93970; 97116; 97162; 97167; 97530; 97535; 99285

== ENCOUNTER 2024-12-29 08:55 | Emergency (ER) | payer OTHER, SELFPAY ==
[2024-12-29 08:58] VITALS: BP 106/64
[2024-12-29 09:10] LABS: Hematocrit 36.4 % (39.0-52.0); Hemoglobin 11.9 g/dL (13.0-18.0); Mean Corp Hgb Conc. 32.7 g/dL (33.0-37.0); Mean Corpuscular Volume 87.1 fL (80.0-94.0); Nucleated Red Blood Cells % 0 % (-); Platelet Count 201 10^3/uL (130-400); Red Cell Dist. Width 15.3 % (11.5-14.5)
[2024-12-29 09:36] LABS: Troponin I < 0.012 ng/ml
[2024-12-29 09:45] LABS: ALT (SGPT) 18 U/L (0-50); AST (SGOT) 27 U/L (17-59); Albumin 3.2 g/dl (3.5-5.0); Alkaline Phosphatase 65 U/L (38-126); Blood Urea Nitrogen 12 mg/dl (9-20); Calcium 9.2 mg/dl (8.4-10.2); Carbon Dioxide 25 mmol/L (22-30); Chloride 105 mmol/L (98-107); Glucose 164 mg/dl (70-99); Potassium 4.3 mmol/L (3.5-5.1); Sodium 134 mmol/L (135-145); Total Protein 5.7 g/dl (6.3-8.2); eGFR > 60.00
[2024-12-29 10:00] VITALS: BP 110/82
--- NOTE | 2024-12-29 10:07 | ED.GENMED ---
History of Present Illness
General
Chief Complaint: Fainting Sensation
Time Seen by Provider: 12/29/24 09:37
History of Present Illness
History of Present Illness:
see MDM
Past History
Past History
ED Past Medical History: Asthma, CAD, HTN, Hypercholesterolemia and PA (Stent placement)
ED Past Surgical History: Tonsilectomy
Social History
Tobacco: Former smoker
Alcohol: Occasional
Drug: Marijuana
Phy Exam
Physical Exam
Physical Exam:
GENERAL: Alert , in no apparent distress
HEAD: NCAT
NECK: in cervical collar
EYE: pupils equal and reactive, EOMs intact.
CARDIAC: Regular rate and rhythm, no edema
LUNGS: Clear breath sounds bilaterally, no acute respiratory distress, no wheezes/rales/rhonchi
ABDOMEN: Soft, without focal tenderness, no r/g, no cvat
NEUROLOGICAL: Alert and oriented, no focal neuro deficits, CN intact, 5/5 strength, sensation intact
SKIN: Warm and dry,
MUSCULOSKELETAL: No edema, well perfused.
PSYCH: Normal and appropriate interaction.
Course
Orders/Labs/Results
Orders:
Orders
12/29/24 09:01
Electrocardiogram (*1) Urgent
Reason for Study: Syncope
12/29/24 09:02
EKG- Treatment ONCE
12/29/24 09:03
Complete Blood Count/With Diff Urgent
Comprehensive Metabolic Panel Urgent
Troponin I Urgent
12/29/24 10:10
CT Cervical Spine W/o Iv Contr Urgent
Comment:
Reason For Exam: cervical fracture, moved neck and was having pain
12/29/24 10:44
CT Head W/o Iv Contrast Urgent
Comment:
Reason For Exam: near syncope
12/29/24 11:35
Fentanyl, Urine Urgent
Urine Drug Abuse Screen Urgent
Date Specimen was Collected: 12/29/24
Time Specimen was Collected: 11:11
Abnormal Lab Results
12/29/24 12/29/24
09:03 11:35
RBC 4.18 L 10^6/uL
(4.70-6.10)
Hgb 11.9 L g/dL
(13.0-18.0)
Hct 36.4 L %
(39.0-52.0)
MCHC 32.7 L g/dL
(33.0-37.0)
RDW 15.3 H %
(11.5-14.5)
MPV 10.6 H fL
(7.4-10.4)
Lymphocytes % 14.8 L %
(20.5-51.1)
Sodium 134 L mmol/L
(135-145)
Creatinine 0.6 L mg/dL
(0.7-1.3)
Glucose 164 H mg/dl
(70-99)
Total Protein 5.7 L g/dl
(6.3-8.2)
Albumin 3.2 L g/dl
(3.5-5.0)
Ur Oxycodone Screen Positive H
(Negative)
U Marijuana (THC) Screen Positive H
(Negative)
12/29/24 09:03
12/29/24 09:03
Vital Signs
Initial and Last Documented VS:
Initial Vital Signs
Temp Pulse Resp BP Pulse Ox
36.6 C 64 18 106/64 96
12/29/24 08:58 12/29/24 08:58 12/29/24 08:58 12/29/24 08:58 12/29/24 08:58
Last Documented Vital Signs
Temp Pulse Resp BP Pulse Ox
36.6 C 66 13 150/83 98
12/29/24 08:58 12/29/24 13:36 12/29/24 11:30 12/29/24 11:10 12/29/24 11:30
MDM/Problems Addressed
Differential Diagnosis Includes:
see MDm
MDM/Problems Addressed:
Note:
CHIEF COMPLAINT(S)
Lightheadedness and the feeling of near-syncope.
HISTORY OF PRESENT ILLNESS
The patient is a 74-year-old male with significant history for a recent TAVR at [place], persistent orthostatic near syncope on midodrine, recent fall from his orthostasis causing an occipital condyle fracture and a c-collar from [facility] since
yesterday who presented after what is suspected to be a near syncopal event this morning when he was trying to do a transfer seated. Patient was being assessed by Occupational Therapy part of his evaluation was to have him attempt to shower. They
removed his ELEN stockings which have been helping his orthostasis. They sat him up and his blood pressure was 112/50 but in the process of starting the transfer he closes eyes and looks briefly unresponsive. The occupational therapist called a
rapid response where the PA whom I talked to, her name is Janine, said she arrived and the patient was pale but ultimately regained consciousness within a brief time and he suspected that he had dropped his blood pressure. He was not witnessed to
have any seizure activity. During this whole thing it seems as if he may have adjusted his cervical collar and the concern was that they wish to have his C-spine reevaluated. Also when the patient was admitted yesterday he was found to have
marijuana on him and thus the staff at [facility] would like me to send a urine drug screen.
They say they cannot do this test in their facility
Patient has been extensively worked up for the near syncope and orthostasis. He has midodrine with parameters. Patient reports no pain to his head, neck, chest, belly. He has not noticed any black stool..
EXTERNAL RECORDS REVIEWED
The provider reviewed the report from the patient�s valve procedure, noting a history of lightheadedness and blood pressure fluctuations.
PHYSICAL EXAM
- General: The patient appears pale.
- Musculoskeletal: Notable size discrepancy between the patient�s legs, with one leg appearing larger than the other, which the patient states is usual for him.
- Nursing notes reviewed and vital signs reviewed.
PLAN
The plan involves coordinating care with the patients rehab doctor, identified as 'Stefan,' to determine the appropriate steps forward.
DIFFERENTIAL DIAGNOSIS
The Differential Diagnosis includes, in no particular order and is not limited to:
1. Orthostatic hypotension
2. Atrial fibrillation-related symptoms
3. Medication side effects
4. Dehydration
5. Anemia
6. Heart valve dysfunction
7. Vestibular dysfunction
8. Chronic heart failure
9. Hypoglycemia
10. Neurological conditions (e.g., transient ischemic attack)
Disposition:
SUMMARY OF ENCOUNTER
A 74-year-old male presenting with a near-syncopal episode while undergoing occupational therapy at [facility]. The incident occurred during a transfer attempt while seated, resulting in a brief loss of consciousness but with rapid recovery to
baseline. The patient has a history of recent transcatheter aortic valve replacement (TAVR) and has orthostatic hypotension, for which he takes midodrine. He also sustained a previous occipital condyle fracture from a fall due to orthostasis,
necessitating a C-collar as advised by neurosurgery. The episode today was similar to previous events related to positional changes. A CT confirmed no malalignment of the cervical fracture. The [facility] staff requested a urine drug screen due to
the finding of marijuana, to which the patient admitted usage. The intention of todays visit was primarily to ensure the structural stability of the cervical spine following his recent episode.
PLAN
Reassure that there is no need for a new workup given the stable cervical fracture and recurrent nature of these positional changes. Recommend monitoring of hemoglobin levels, currently slightly decreased, for any further decrease or symptoms
suggesting bleeding. If symptoms persist or worsen, further investigation might be necessary.
FOLLOW-UP INSTRUCTIONS
The patient will be transitioned back to [facility] for ongoing rehabilitation management.
MEDICATION RECONCILIATION
Current medication includes midodrine for orthostatic hypotension.
MEDICAL DECISION MAKING
-Complexity of Data Reviewed: Chronic conditions affecting care include recent TAVR, orthostatic hypotension, and cervical spine fracture. Differential diagnosis considered includes orthostatic hypotension, medication side effects, and heart valve
dysfunction among others.
-Data:
Category 1
External record reviewed: The patients valve procedure and orthostatic hypotension management history were reviewed.
Clinical information obtained from an independent historian: Review and input from [facility] staff.
Category 3
Discussion of management with other healthcare providers: Coordinated with [facility] and neurosurgery regarding cervical spine stability and rehabilitation plan.
-Risk: Decisions regarding diagnostic testing included repeating CT imaging to assess cervical alignment.
DIAGNOSIS
- Near syncope due to orthostatic hypotension (R55)
- Cervical spine fracture, stable post-trauma (S12.190A)
- Recent transcatheter aortic valve replacement (Z95.4)
- Anemia, unspecified, needs monitoring (D64.9)
- Cannabis use, adolescent, uncomplicated (F12.90)
*Pulse Oximetry
SaO2: 96
Oxygen Mode of Delivery: Room air
Patient hypoxic: no (98)
*Critical Care Note
Total Time (30-74mins, 75-104mins- exclusive of procedures): Not Applicable
ED Attending Note
-
Portions of this chart may have been created with voice recognition software.� Occasional wrong word or��sound alike� substitutions may have occurred due to the inherent limitations of voice recognition software.
Discharge Plan
Departure
Patient Disposition: Acute Rehab Facility
Date of Disposition: 12/29/24
Time of Disposition: 11:59
Patient with high blood pressure during this ER visit?: No
Condition: Fair
Covid-19: Not Applicable
Discharge Problem:
Near syncope, Orthostasis
Prescriptions:
No Action
ezetimibe 10 MG tablet
10 mg PO HS
carvedilol 3.125 mg Tablet
3.125 mg PO BID Qty: 0 0RF
Eliquis 5 MG tablet
5 mg PO BID Qty: 60 11RF
polyethylene glycol 3350 17 gram Powder In Packet
17 g PO DAILYPRN PRN (Reason: constipation) 30 Days Qty: 30 0RF
midodrine 2.5 mg Tablet
2.5 mg PO DAILYPRN PRN (Reason: SBP less than 130) 30 Days Qty: 30 0RF
sennosides-docusate sodium 8.6-50 mg Tablet
1 tab PO BIDPRN PRN (Reason: constipation) 30 Days Qty: 0 0RF
acetaminophen [Tylenol Extra Strength] 500 mg Tablet
1,000 mg PO TID 30 Days Qty: 0 0RF
tizanidine 2 mg Tablet
2 mg PO TIDPRN PRN (Reason: headache) 30 Days Qty: 6 0RF
cyanocobalamin (vitamin B-12) 1,000 mcg Tablet
1,000 mcg PO DAILY 30 Days Qty: 30 0RF
ascorbic acid (vitamin C) [Vitamin C] 500 mg Tablet
500 mg PO DAILY 30 Days Qty: 30 0RF
aspirin 81 mg Tablet
81 mg PO DAILY 30 Days Qty: 30 0RF
cholecalciferol (vitamin D3) [Vitamin D3] 25 mcg (1,000 unit) Tablet
25 mcg PO DAILY 30 Days Qty: 30 0RF
Visbiome 112.5 billion cell Capsule
1 cap PO DAILY 30 Days Qty: 30 0RF
tamsulosin 0.4 mg capsule
0.4 mg PO HS
Referrals:
UNKNOWN - PT NOT,INTERVIEWE [Family Provider]
Interventions
Interventions:
*Risk Screen - Suicide Last Done: 12/29/24 08:58
*General Assessment Last Done: 12/29/24 08:58
*Neglect/Abuse Screening Last Done: 12/29/24 08:58
*ED COVID-19 Vaccine History Last Done: 12/29/24 13:30
*Nursing Disposition Last Done: 12/29/24 14:46
ED- Cardiac Assessment Last Done: 12/29/24 11:45
ED- Neurological Assessment Last Done: 12/29/24 11:00
Discharge Date and Time
Discharge Date/Time: 12/29/24 14:30
Print Language: DUTCH
[2024-12-29 11:10] VITALS: BP 150/83
== END 2024-12-29 14:30 ==
LOC: EMR 08:55
PROVIDERS: Physician Assistant; EMERGENCY PHYSICIAN Emergency Medicine
DX: R55 Syncope and collapse (principal); E78.00 Pure hypercholesterolemia, unspecified; I10 Essential (primary) hypertension; I25.10 Atherosclerotic heart disease of native coronary artery without angina pectoris; Z87.891 Personal history of nicotine dependence; J45.909 Unspecified asthma, uncomplicated; D64.9 Anemia, unspecified; Z87.81 Personal history of (healed) traumatic fracture; Z95.4 Presence of other heart-valve replacement
CPT/HCPCS: 99284; 70450; 72125; 80053; 80306; 80307; 84484; 85025; 93005

== ENCOUNTER → 2025-01-17 13:14 | Outpatient (REF) | payer OTHER, SELFPAY | LOC: RCS 13:14 | PROVIDERS: ATTENDING PHYSICIAN Internal Medicine; FAMILY PHYSICIAN Family Medicine | DX: Z95.2 Presence of prosthetic heart valve (principal); I35.0 Nonrheumatic aortic (valve) stenosis | CPT/HCPCS: 93306 ==

== ENCOUNTER 2025-01-19 07:10 | Outpatient (RCR) | payer OTHER, SELFPAY | END 2025-01-19 23:59 | disposition home or self-care (01) | LOC: RPT 07:10 | PROVIDERS: ATTENDING PHYSICIAN Physical Medicine & Rehabilitation; FAMILY PHYSICIAN Nurse Practitioner Acute Care | DX: S02.612D Fracture of condylar process of left mandible, subsequent encounter for fracture with routine healing (principal); Z73.6 Limitation of activities due to disability; M62.81 Muscle weakness (generalized); R26.89 Other abnormalities of gait and mobility; R54 Age-related physical debility; W19.XXXD Unspecified fall, subsequent encounter; Z98.890 Other specified postprocedural states | CPT/HCPCS: 97163; 97167; 97530 ==

== ENCOUNTER 2025-02-11 06:51 | Outpatient (RCR) | payer OTHER, SELFPAY | END 2025-02-22 11:11 | disposition home health service (06) | LOC: RST 06:51 | PROVIDERS: ATTENDING PHYSICIAN Physical Medicine & Rehabilitation; FAMILY PHYSICIAN Nurse Practitioner Acute Care | DX: S02.612D Fracture of condylar process of left mandible, subsequent encounter for fracture with routine healing (principal); Z73.6 Limitation of activities due to disability; M62.81 Muscle weakness (generalized); R26.89 Other abnormalities of gait and mobility; R54 Age-related physical debility; W19.XXXD Unspecified fall, subsequent encounter; Z98.890 Other specified postprocedural states | CPT/HCPCS: 97110; 97112; 97116; 97530; 97535 ==

== ENCOUNTER → 2025-02-22 09:23 | Outpatient (REF) | payer OTHER, SELFPAY | LOC: RAD 09:23 | PROVIDERS: ATTENDING PHYSICIAN Neurological Surgery; FAMILY PHYSICIAN Family Medicine | DX: S02.11 Fracture of occiput (principal); R93.7 Abnormal findings on diagnostic imaging of other parts of musculoskeletal system | CPT/HCPCS: 72040 ==

== ENCOUNTER 2025-02-22 14:34 | Outpatient (RCR) | payer OTHER, SELFPAY | END 2025-02-22 23:59 | disposition home or self-care (01) | LOC: CRHB 14:34 | PROVIDERS: ATTENDING PHYSICIAN Internal Medicine | DX: Z95.4 Presence of other heart-valve replacement (principal) | CPT/HCPCS: 93797; 93798; G0422; G0423 ==

== ENCOUNTER → 2025-03-25 17:00 | Outpatient (REF) | payer OTHER, SELFPAY | LOC: RAD 17:00 | PROVIDERS: ATTENDING PHYSICIAN Internal Medicine; FAMILY PHYSICIAN Family Medicine | DX: R60.0 Localized edema (principal) | CPT/HCPCS: 93970 ==